=== PATIENT | female | born 1950 | race Caucasian/White ===

== ENCOUNTER 2017-08-11 18:25 | Inpatient (IN) | payer MEDICARE, MEDICAID ==
[2017-08-11] MEDS ORDERED: Sodium Chloride 0.9% 1,000 ML ONE (18:37)
[2017-08-11] MEDS ORDERED: Sodium Chloride 0.9% 1,000 ML IV ONE (20:19)
[2017-08-11] MEDS ORDERED: Albuterol-Ipratrop 3 mg / 0.5 (3 ml) UD INH STA (20:21)
--- NOTE | 2017-08-11 20:22 | C.PDOC ---
History Of Present Illness 67 year old female with Hx of COPD presents to the ED with complints of a fever accompanied by a headache since yesterday. She associates her fever with cough, SOB, chills, rhinorrhea. Patient is a smoker, currently smoking 3/4 cigarettes a day, used to smoke 1 pack a day and has been smoking for the past 50 years. 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 She denies any heart problems, ear pain, throat pain, recent travel outside the [place], vomit, nausea, or diarrhea. Chief Complaint (Nursing): Fever History Per: Patient History/Exam Limitations: no limitations Onset/Duration Of Symptoms: Hrs Current Symptoms Are (Timing): Still Present Location Of Pain: Headache Associated Symptoms: Fever, Chills, Cough, Sinus Drainage. denies: Neck Pain, Nausea, Vomiting, Diarrhea Recent travel outside of the [place]: No Additional History Per: Patient Past Medical History Reviewed: Historical Data, Nursing Documentation, Vital Signs Vital Signs: Last Vital Signs Temp 98.2 F 08/12/17 00:45 Pulse 96 H 08/12/17 00:45 Resp 20 08/12/17 00:45 BP 95/65 L 08/12/17 00:45 Pulse Ox 96 08/12/17 00:45 - Medical History PMH: COPD, CVA, HTN, Hyperthyroidism Denies: Depression (PRESENTLY DEPRESSED) Surgical History: Coronary Stent - [facility] Procedures ENDOSCOPIC BRONCHIAL BX (01/07/15) RESP TRACT INTUBAT NEC (01/07/15) Family History: States: Unknown Family Hx - Social History Hx Tobacco Use: Yes Hx Alcohol Use: No Hx Substance Use: No - Immunization History Hx Tetanus Toxoid Vaccination: No Hx Influenza Vaccination: No Hx Pneumococcal Vaccination: No Review Of Systems Constitutional: Positive for: Fever, Chills ENT: Positive for: Nose Discharge. Negative for: Ear Pain, Ear Discharge Cardiovascular: Negative for: Chest Pain Respiratory: Positive for: Cough, Shortness of Breath Gastrointestinal: Negative for: Nausea, Vomiting, Diarrhea Neurological: Negative for: Weakness, Numbness Physical Exam - Physical Exam Appears: Non-toxic, No Acute Distress Skin: Normal Color, Warm, Dry Head: Atraumatic, Normacephalic Eye(s): bilateral: Normal Inspection, PERRL, EOMI Oral Mucosa: Moist Neck: Normal, Supple Lymphatic: No Adenopathy (cervical) Chest: Symmetrical Cardiovascular: Rhythm Regular (Mildly accelerated), No Friction Rub, No Murmur Respiratory: Rhonchi (coarse left upper lung), Wheezing (expiratory bilateral, left more than right) Gastrointestinal/Abdominal: Bowel Sounds (active), Soft, No Tenderness, No Organomegaly, No Guarding Extremity: Normal ROM, No Pedal Edema, Capillary Refill (less than 2 seconds), No Deformity, No Swelling, No Other (clubbing, cyanosis) Pulses: Left Dorsalis Pedis: Normal, Right Dorsalis Pedis: Normal Neurological/Psych: Oriented x3, Normal Speech, Normal Cognition ED Course And Treatment - Laboratory Results Result Diagrams: 08/11/17 21:10 08/11/17 21:10 O2 Sat by Pulse Oximetry: 95 (On RA) - Radiology CXR: Interpreted by Me, Viewed By Me CXR Interpretation: Yes: No Acute Disease, Other (Cardiac silhouette normal) Medical Decision Making Medical Decision Making: Impression : 67 y/o female presents with fever, James. Plan : * ABG ordered * EKG ordered * Blood work, CXR, UA ordered * Albuterol, Nebulizer treatment, Zithromaz 500 mg administered * O2 Nasa canula placed * Peak flow Pre/Post Tx ordered Possible COPD vs pneumonia. Reevaluation after lab data is obtained. Patient still has persistent wheezes, spoke with PMD Dr. Duc Molian and agreed that patient needs to stay in the hospital tonight for further evaluation. Disposition - Disposition Disposition: HOSPITALIZED Condition: GOOD - Scribe Statement The provider has reviewed the documentation as recorded by the Scribe Deep Mccoy All medical record entries made by the Scribe were at my direction and personally dictated by me. I have reviewed the chart and agree that the record accurately reflects my personal performance of the history, physical exam, medical decision making, and the department course for this patient. I have also personally directed, reviewed, and agree with the discharge instructions and disposition.
[2017-08-11 21:24] LABS: CHLORIDE 91 mmol/L (98-107); POTASSIUM 3.1 mmol/L (3.6-5.2); SODIUM 128 mmol/L (132-148)
[2017-08-11 21:25] LABS: BASO % 0.3 % (0.0-2.0); EOS # 0.1 K/uL (0.0-0.7); EOS % 0.4 % (0.0-4.0); HEMATOCRIT 37.2 % (34.0-47.0); LYMPH # 1.2 K/uL (1.0-4.3); LYMPH % 7.4 % (20.0-40.0); MEAN CELL VOLUME 86.7 fL (81.0-99.0); MEAN CORPUSCULAR HEMOGLOBIN 29.9 pg (27.0-31.0); MEAN CORPUSCULAR HGB CONC 34.5 g/dL (33.0-37.0); MEAN PLATELET VOLUME 8.6 fL (7.2-11.7); MONO # 0.5 K/uL (0.0-0.8); MONO % 3.1 % (0.0-10.0); NRBC % 0.1 % (0.0-2.0); PLATELET COUNT 218 K/uL (130-400); RED CELL DISTRIBUTION WIDTH 15.4 % (11.5-14.5)
[2017-08-11 21:26] LABS: AST/SGOT 18 U/L (14-36); BILIRUBIN,TOTAL 1.1 mg/dL (0.2-1.3); CARBON DIOXIDE 25 mmol/L (22-30); GFR AFRICAN-AMERICAN > 60; WHITE BLOOD COUNT 16.3 K/uL (4.8-10.8)
[2017-08-11 21:27] LABS: ALB/GLOB RATIO 1.4 (1.0-2.1); ALKALINE PHOSPHATASE 82 U/L (38-126); ALT/SGPT 38 U/L (9-52); BLOOD UREA NITROGEN 11 mg/dL (7-17); GLUCOSE,RANDOM 161 mg/dL (65-105); TOTAL PROTEIN 6.6 g/dL (6.3-8.3)
[2017-08-11] MEDS ORDERED: Albuterol 0.083% Inhal Sol (2.5 mg/3 mL) UD ONE (21:35)
[2017-08-11] MEDS ORDERED: Azithromycin 500 MG in Sodium Chloride 0.9% 250 ML IVPB STA (22:05)
[2017-08-11 22:18] LABS: ARTERIAL BLOOD HGB O2 SAT 92.8 % (95.0-98.0); CARBOXYHEMOGLOBIN 1.9 % (0.5-1.5); DRAW SITE RRA; HHB 4.3 % (0.0-5.0)
[2017-08-11 22:35] LABS: REACTIVE LYMPHOCYTES 2 % (0-0); TOTAL CELLS COUNTED 100
[2017-08-11 22:38] LABS: NEUTROPHIL 69 % (50-75)
[2017-08-11] MEDS ORDERED: Azithromycin 500mg/250ML NS 500 MG/250 ML BAG IVPB ONE (22:44)
--- NOTE | 2017-08-11 23:42 | CP.PCM.HP ---
Past Patient History - Infectious Disease Hx of Infectious Diseases: None - Tetanus Immunizations Tetanus Immunization: Unknown - Past Medical History & Family History Past Medical History?: Yes - Past Social History Smoking Status: Former Smoker - CARDIAC Hx Hypertension: Yes - PULMONARY Hx Chronic Obstructive Pulmonary Disease (COPD): Yes - NEUROLOGICAL Hx Neurological Disorder: Yes HX Cerebrovascular Accident: Yes - HEENT Hx HEENT Problems: No - ENDOCRINE/METABOLIC Hx Hyperthyroidism: Yes - HEMATOLOGICAL/ONCOLOGICAL Hx Blood Disorders: No - INTEGUMENTARY Hx Dermatological Problems: No - MUSCULOSKELETAL/RHEUMATOLOGICAL Hx Musculoskeletal Disorders: No Hx Falls: No - GASTROINTESTINAL Hx Gastrointestinal Disorders: Yes Hx Constipation: Yes - GENITOURINARY/GYNECOLOGICAL Hx Genitourinary Disorders: No - PSYCHIATRIC Hx Depression: No (PRESENTLY DEPRESSED) Hx Substance Use: No - SURGICAL HISTORY Hx Coronary Stent: Yes - ANESTHESIA Hx Anesthesia: Yes Hx Anesthesia Reactions: No Hx Malignant Hyperthermia: No Meds Allergies/Adverse Reactions: Allergies Allergy/AdvReac Type Severity Reaction Status Date / Time iodine Allergy Verified 08/11/17 18:53 iron Allergy Verified 08/11/17 18:53 Penicillins Allergy Verified 08/11/17 18:53 Sulfa (Sulfonamide Allergy Verified 08/11/17 18:53 Antibiotics) seafood Allergy Uncoded 08/11/17 18:53 Results - Vital Signs Recent Vital Signs: Last Vital Signs Temp 99.4 F 08/11/17 21:45 Pulse 120 H 08/11/17 21:45 Resp 22 08/11/17 21:45 BP 107/68 08/11/17 21:45 Pulse Ox 95 08/11/17 22:41 - Labs Result Diagrams: 08/11/17 21:10 08/11/17 21:10 Labs: Laboratory Results - last 24 hr 08/11/17 08/11/17 08/11/17 20:12 21:10 21:10 WBC 16.3 H D RBC 4.29 Hgb 12.8 D Hct 37.2 MCV 86.7 MCH 29.9 MCHC 34.5 RDW 15.4 H Plt Count 218 MPV 8.6 Neut % (Auto) 88.8 H Lymph % (Auto) 7.4 L [place] % (Auto) 3.1 Eos % (Auto) 0.4 Baso % (Auto) 0.3 Neut # 14.5 H Lymph # 1.2 [place] # 0.5 Eos # 0.1 Baso # 0.0 Neutrophils % (Manual) 69 Band Neutrophils % 15 H* Lymphocytes % (Manual) 9 L Reactive Lymphs % 2 H Monocytes % (Manual) 5 Platelet Estimate Normal Microcytosis (manual) Slight Ovalocytes Slight Puncture Site Rra pCO2 36 pO2 65 L HCO3 29.1 H ABG pH 7.51 H ABG Total CO2 29.8 H ABG O2 Saturation 95.6 ABG Base Excess 5.5 H ABG Hemoglobin 11.8 ABG Carboxyhemoglobin 1.9 H POC ABG HHb (Measured) 4.3 ABG Methemoglobin 1.0 Tim Test Na A-a O2 Difference 40.0 Respiratory Index 0.6 Hgb O2 Saturation 92.8 L FiO2 21.0 Sodium 128 L Potassium 3.1 L Chloride 91 L Carbon Dioxide 25 Anion Gap 15 BUN 11 Creatinine 0.7 Est GFR ( Amer) > 60 Est GFR (Non-Af Amer) > 60 Random Glucose 161 H Lactic Acid Calcium 9.0 Total Bilirubin 1.1 AST 18 ALT 38 Alkaline Phosphatase 82 NT-Pro-B Natriuret Pep 160 Total Protein 6.6 Albumin 3.8 Globulin 2.8 Albumin/Globulin Ratio 1.4 08/11/17 22:04 WBC RBC Hgb Hct MCV MCH MCHC RDW Plt Count MPV Neut % (Auto) Lymph % (Auto) [place] % (Auto) Eos % (Auto) Baso % (Auto) Neut # Lymph # [place] # Eos # Baso # Neutrophils % (Manual) Band Neutrophils % Lymphocytes % (Manual) Reactive Lymphs % Monocytes % (Manual) Platelet Estimate Microcytosis (manual) Ovalocytes Puncture Site pCO2 pO2 HCO3 ABG pH ABG Total CO2 ABG O2 Saturation ABG Base Excess ABG Hemoglobin ABG Carboxyhemoglobin POC ABG HHb (Measured) ABG Methemoglobin Tim Test A-a O2 Difference Respiratory Index Hgb O2 Saturation FiO2 Sodium Potassium Chloride Carbon Dioxide Anion Gap BUN Creatinine Est GFR ( Amer) Est GFR (Non-Af Amer) Random Glucose Lactic Acid 1.6 Calcium Total Bilirubin AST ALT Alkaline Phosphatase NT-Pro-B Natriuret Pep Total Protein Albumin Globulin Albumin/Globulin Ratio
[2017-08-11] MEDS: Moxifloxacin IV 400mg/250ml NS 400 MG/250 ML BAG IVPB SCH (23:51)
[2017-08-12] MEDS: Moxifloxacin IV 400mg/250ml NS 400 MG/250 ML BAG IVPB SCH (01:17)
[2017-08-12] MEDS ORDERED: Potassium Chloride 20 mEq ER Tab PO ONE (01:22)
[2017-08-12] MEDS: Albuterol-Ipratrop 3 mg / 0.5 (3 ml) UD INH SCH ×3 (01:24→19:17)
[2017-08-12 08:07] LABS: RBC URINE 13 /hpf (0-3); URINE BACTERIA RARE (<OCC); URINE BILIRUBIN NEGATIVE (NEGATIVE); URINE BLOOD 2+ (NEGATIVE); URINE COLOR Yellow (YELLOW); URINE GLUCOSE (UA) 2+ mg/dL (Normal); URINE KETONE NEGATIVE (NEGATIVE); URINE LEUKOCYTE ESTERASE NEG Leu/uL (Negative); URINE PROTEIN NEGATIVE (NEGATIVE); WBC URINE 1 /hpf (0-5)
[2017-08-12] MEDS: Potassium Chloride 20 mEq ER Tab PO SCH ×2 (08:48→10:38)
--- NOTE | 2017-08-12 09:03 | CP.PCM.CON ---
History of Present Illness - History of Present Illness History of Present Illness: 67 year old female with Hx of COPD presents to the ED with complaints of a fever , SOB, Wheezing accompanied by a headache since yesterday. She associates her fever with cough, SOB, chills, rhinorrhea. Patient is a smoker, currently smoking 3/4 cigarettes a day, used to smoke 1 pack a day and has been smoking for the past 50 years. 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 She denies any heart problems, ear pain, throat pain, recent travel outside the [place], vomit, nausea, or diarrhea. Review of Systems - Review of Systems All systems: reviewed and no additional remarkable complaints except (as mentioned in HPI) Past Patient History - Infectious Disease Hx of Infectious Diseases: None - Tetanus Immunizations Tetanus Immunization: Unknown - Past Medical History & Family History Past Medical History?: Yes - Past Social History Smoking Status: Light Smoker < 10 Cigarettes Daily - CARDIAC Hx Cardiac Disorders: Yes Hx Hypertension: Yes - PULMONARY Hx Respiratory Disorders: Yes Hx Chronic Obstructive Pulmonary Disease (COPD): Yes - NEUROLOGICAL Hx Neurological Disorder: Yes HX Cerebrovascular Accident: Yes - HEENT Hx HEENT Problems: No - RENAL Hx Chronic Kidney Disease: No - ENDOCRINE/METABOLIC Hx Endocrine Disorders: Yes Hx Hyperthyroidism: Yes - HEMATOLOGICAL/ONCOLOGICAL Hx Blood Disorders: Yes Hx Cancer: Yes Hx Chemotherapy: Yes Other/Comment: pt states she currently diagnosed w/brain ca - INTEGUMENTARY Hx Dermatological Problems: No - MUSCULOSKELETAL/RHEUMATOLOGICAL Hx Musculoskeletal Disorders: No Hx Falls: No - GASTROINTESTINAL Hx Gastrointestinal Disorders: Yes Hx Constipation: Yes - GENITOURINARY/GYNECOLOGICAL Hx Genitourinary Disorders: No - PSYCHIATRIC Hx Depression: No (PRESENTLY DEPRESSED) Hx Substance Use: No - SURGICAL HISTORY Hx Surgeries: Yes Hx Coronary Stent: Yes - ANESTHESIA Hx Anesthesia: Yes Hx Anesthesia Reactions: No Hx Malignant Hyperthermia: No Meds Allergies/Adverse Reactions: Allergies Allergy/AdvReac Type Severity Reaction Status Date / Time iodine Allergy Verified 08/11/17 18:53 iron Allergy Verified 08/11/17 18:53 Penicillins Allergy Verified 08/11/17 18:53 Sulfa (Sulfonamide Allergy Verified 08/11/17 18:53 Antibiotics) seafood Allergy Uncoded 08/11/17 18:53 - Medications Medications: Current Medications Albuterol/Ipratropium (Duoneb 3 Mg/0.5 Mg (3 Ml) Ud) 3 ml INH RQ6 [facility] Last Admin: 08/12/17 07:10 Dose: 3 ml Enoxaparin Sodium (Lovenox) 40 mg SC DAILY [facility] Moxifloxacin HCl (Avelox Iv 400mg/250ml Ns) 400 mg in 250 mls @ 167 mls/hr IVPB Q24H [facility] Last Admin: 08/12/17 01:17 Dose: Not Given Azithromycin 500 mg/ Sodium (Chloride) 250 mls @ 250 mls/hr IVPB DAILY [facility] Potassium Chloride (Potassium Chloride 20 Meq/100 Ml) 20 meq in 100 mls @ 50 mls/hr IVPB Q2 [facility] Last Admin: 08/12/17 00:06 Dose: 50 mls/hr Montelukast Sodium (Singulair) 10 mg PO HS [facility] Last Admin: 08/12/17 01:19 Dose: 10 mg Pantoprazole Sodium (Protonix Ec Tab) 40 mg PO DAILY [facility] Pneumococcal Polyvalent Vaccine (Pneumovax 23 Vaccine) 0.5 ml IM .ONCE ONE Stop: 08/14/17 10:01 Potassium Chloride (K-Dur 20 Meq Er Tab) 20 meq PO DAILY [facility] Last Admin: 08/12/17 08:48 Dose: 20 meq Physical Exam - Head Exam Head Exam: NORMAL INSPECTION - Eye Exam Eye Exam: Normal appearance - ENT Exam ENT Exam: Mucous Membranes Moist - Respiratory Exam Respiratory Exam: Decreased Breath Sounds, Rhonchi - Cardiovascular Exam Cardiovascular Exam: REGULAR RHYTHM, +S1, +S2 - GI/Abdominal Exam GI & Abdominal Exam: Normal Bowel Sounds, Soft - Extremities Exam Extremities exam: Positive for: normal inspection - Neurological Exam Neurological exam: Alert, Oriented x3 Results - Vital Signs Recent Vital Signs: Last Vital Signs Temp 98.5 F 08/12/17 08:37 Pulse 111 H 08/12/17 08:37 Resp 20 08/12/17 08:37 BP 98/67 L 08/12/17 08:37 Pulse Ox 99 08/12/17 08:37 - Labs Result Diagrams: 08/11/17 21:10 08/11/17 21:10 Labs: Laboratory Results - last 24 hr 08/11/17 08/11/17 08/11/17 20:12 21:10 21:10 WBC 16.3 H D RBC 4.29 Hgb 12.8 D Hct 37.2 MCV 86.7 MCH 29.9 MCHC 34.5 RDW 15.4 H Plt Count 218 MPV 8.6 Neut % (Auto) 88.8 H Lymph % (Auto) 7.4 L [place] % (Auto) 3.1 Eos % (Auto) 0.4 Baso % (Auto) 0.3 Neut # 14.5 H Lymph # 1.2 [place] # 0.5 Eos # 0.1 Baso # 0.0 Neutrophils % (Manual) 69 Band Neutrophils % 15 H* Lymphocytes % (Manual) 9 L Reactive Lymphs % 2 H Monocytes % (Manual) 5 Platelet Estimate Normal Microcytosis (manual) Slight Ovalocytes Slight Puncture Site Rra pCO2 36 pO2 65 L HCO3 29.1 H ABG pH 7.51 H ABG Total CO2 29.8 H ABG O2 Saturation 95.6 ABG Base Excess 5.5 H ABG Hemoglobin 11.8 ABG Carboxyhemoglobin 1.9 H POC ABG HHb (Measured) 4.3 ABG Methemoglobin 1.0 Tim Test Na A-a O2 Difference 40.0 Respiratory Index 0.6 Hgb O2 Saturation 92.8 L FiO2 21.0 Sodium 128 L Potassium 3.1 L Chloride 91 L Carbon Dioxide 25 Anion Gap 15 BUN 11 Creatinine 0.7 Est GFR ( Amer) > 60 Est GFR (Non-Af Amer) > 60 Random Glucose 161 H Lactic Acid Calcium 9.0 Total Bilirubin 1.1 AST 18 ALT 38 Alkaline Phosphatase 82 NT-Pro-B Natriuret Pep 160 Total Protein 6.6 Albumin 3.8 Globulin 2.8 Albumin/Globulin Ratio 1.4 Urine Color Urine Clarity Urine pH Ur Specific [employer] Urine Protein Urine Glucose (UA) Urine Ketones Urine Blood Urine Nitrate Urine Bilirubin Urine Urobilinogen Ur Leukocyte Esterase Urine WBC (Auto) Urine RBC (Auto) Ur Squamous Epith Cells Urine Bacteria 08/11/17 08/12/17 22:04 07:39 WBC RBC Hgb Hct MCV MCH MCHC RDW Plt Count MPV Neut % (Auto) Lymph % (Auto) [place] % (Auto) Eos % (Auto) Baso % (Auto) Neut # Lymph # [place] # Eos # Baso # Neutrophils % (Manual) Band Neutrophils % Lymphocytes % (Manual) Reactive Lymphs % Monocytes % (Manual) Platelet Estimate Microcytosis (manual) Ovalocytes Puncture Site pCO2 pO2 HCO3 ABG pH ABG Total CO2 ABG O2 Saturation ABG Base Excess ABG Hemoglobin ABG Carboxyhemoglobin POC ABG HHb (Measured) ABG Methemoglobin Tim Test A-a O2 Difference Respiratory Index Hgb O2 Saturation FiO2 Sodium Potassium Chloride Carbon Dioxide Anion Gap BUN Creatinine Est GFR ( Amer) Est GFR (Non-Af Amer) Random Glucose Lactic Acid 1.6 Calcium Total Bilirubin AST ALT Alkaline Phosphatase NT-Pro-B Natriuret Pep Total Protein Albumin Globulin Albumin/Globulin Ratio Urine Color Yellow Urine Clarity Clear Urine pH 6.0 Ur Specific [employer] 1.013 Urine Protein Negative Urine Glucose (UA) 2+ H Urine Ketones Negative Urine Blood 2+ H Urine Nitrate Negative Urine Bilirubin Negative Urine Urobilinogen 4.0 H Ur Leukocyte Esterase Neg Urine WBC (Auto) 1 Urine RBC (Auto) 13 H Ur Squamous Epith Cells 8 H Urine Bacteria Rare Assessment & Plan - Assessment and Plan (Free Text) Assessment: COPD HTN Improved Wheezing Azithromycin Add Advair 250/50 1 P BID Bronchodilators DVT/GI prophalaxis
[2017-08-12] MEDS: Pantoprazole 40 mg EC Tab PO SCH (10:34)
[2017-08-12] MEDS: Enoxaparin 40 mg Syringe SC SCH (10:34)
[2017-08-12] MEDS: Azithromycin 500 MG in Sodium Chloride 0.9% 250 ML IVPB SCH (10:35)
[2017-08-12 11:26] LABS: BASO # 0.1 K/uL (0.0-0.2); BASO % 0.5 % (0.0-2.0); EOS # 0.1 K/uL (0.0-0.7); EOS % 0.4 % (0.0-4.0); HEMATOCRIT 31.2 % (34.0-47.0); LYMPH # 1.5 K/uL (1.0-4.3); LYMPH % 11.6 % (20.0-40.0); MEAN CELL VOLUME 86.7 fL (81.0-99.0); MEAN CORPUSCULAR HEMOGLOBIN 29.9 pg (27.0-31.0); MEAN CORPUSCULAR HGB CONC 34.5 g/dL (33.0-37.0); MEAN PLATELET VOLUME 8.1 fL (7.2-11.7); MONO # 0.5 K/uL (0.0-0.8); MONO % 3.6 % (0.0-10.0); RED CELL DISTRIBUTION WIDTH 15.1 % (11.5-14.5); WHITE BLOOD COUNT 13.1 K/uL (4.8-10.8)
[2017-08-12 11:27] LABS: CHLORIDE 99 mmol/L (98-107); SODIUM 134 mmol/L (132-148)
[2017-08-12 11:28] LABS: POTASSIUM 3.5 mmol/L (3.6-5.2)
[2017-08-12 11:30] LABS: CARBON DIOXIDE 29 mmol/L (22-30); GFR AFRICAN-AMERICAN > 60
[2017-08-12 11:31] LABS: BLOOD UREA NITROGEN 9 mg/dL (7-17); GLUCOSE,RANDOM 170 mg/dL (65-105)
[2017-08-12] MEDS: Vancomycin 1 gm/NS 200 ml 1 GM/200 ML BAG IVPB SCH (11:45)
--- NOTE | 2017-08-12 13:57 | CP.PCM.CON ---
History of Present Illness - History of Present Illness History of Present Illness: dictated Past Patient History - Infectious Disease Hx of Infectious Diseases: None - Tetanus Immunizations Tetanus Immunization: Unknown - Past Medical History & Family History Past Medical History?: Yes - Past Social History Smoking Status: Light Smoker < 10 Cigarettes Daily - CARDIAC Hx Cardiac Disorders: Yes Hx Hypertension: Yes - PULMONARY Hx Respiratory Disorders: Yes Hx Chronic Obstructive Pulmonary Disease (COPD): Yes - NEUROLOGICAL Hx Neurological Disorder: Yes HX Cerebrovascular Accident: Yes - HEENT Hx HEENT Problems: No - RENAL Hx Chronic Kidney Disease: No - ENDOCRINE/METABOLIC Hx Endocrine Disorders: Yes Hx Hyperthyroidism: Yes - HEMATOLOGICAL/ONCOLOGICAL Hx Blood Disorders: Yes Hx Cancer: Yes Hx Chemotherapy: Yes Other/Comment: pt states she currently diagnosed w/brain ca - INTEGUMENTARY Hx Dermatological Problems: No - MUSCULOSKELETAL/RHEUMATOLOGICAL Hx Musculoskeletal Disorders: No Hx Falls: No - GASTROINTESTINAL Hx Gastrointestinal Disorders: Yes Hx Constipation: Yes - GENITOURINARY/GYNECOLOGICAL Hx Genitourinary Disorders: No - PSYCHIATRIC Hx Depression: No (PRESENTLY DEPRESSED) Hx Substance Use: No - SURGICAL HISTORY Hx Surgeries: Yes Hx Coronary Stent: Yes - ANESTHESIA Hx Anesthesia: Yes Hx Anesthesia Reactions: No Hx Malignant Hyperthermia: No Meds Home Medications: Home Medication List Medication Instructions Recorded Confirmed Type Acetaminophen [Tylenol 325mg tab] 650 mg PO Q8 PRN tab 08/14/17 Rx Albuterol/Ipratropium [Duoneb 3 3 ml INH RQ6 neb 08/14/17 Rx mg/0.5 mg (3 ml) UD] Enoxaparin [Lovenox] 40 mg SC DAILY syr 08/14/17 Rx Fluticasone/Salmeterol 250/50 1 puff INH RQ12 puff 08/14/17 Rx [Advair Diskus 250/50] Montelukast [Singulair] 10 mg PO HS tab 08/14/17 Rx Potassium Chloride [K-Dur 20 mEq 20 meq PO DAILY tab 08/14/17 Rx ER Tab] Saccharomyces Boulardi [Florastor] 250 mg PO BID #16 cap 08/14/17 Rx levoFLOXacin [Levaquin] 500 mg PO DAILY #7 tab 08/14/17 Rx Allergies/Adverse Reactions: Allergies Allergy/AdvReac Type Severity Reaction Status Date / Time iodine Allergy Verified 08/11/17 18:53 iron Allergy Verified 08/11/17 18:53 Penicillins Allergy Verified 08/11/17 18:53 Sulfa (Sulfonamide Allergy Verified 08/11/17 18:53 Antibiotics) seafood Allergy Uncoded 08/11/17 18:53 - Medications Medications: Current Medications Albuterol/Ipratropium (Duoneb 3 Mg/0.5 Mg (3 Ml) Ud) 3 ml INH RQ6 [facility] Last Admin: 08/12/17 07:10 Dose: 3 ml Enoxaparin Sodium (Lovenox) 40 mg SC DAILY [facility] Last Admin: 08/12/17 10:34 Dose: 40 mg Azithromycin 500 mg/ Sodium (Chloride) 250 mls @ 250 mls/hr IVPB DAILY [facility] Last Admin: 08/12/17 10:35 Dose: 250 mls/hr Potassium Chloride (Potassium Chloride 20 Meq/100 Ml) 20 meq in 100 mls @ 50 mls/hr IVPB Q2 [facility] Last Admin: 08/12/17 00:06 Dose: 50 mls/hr Vancomycin/Sodium Chloride (Vancomycin 1 Gm/Ns 200 Ml) 1 gm in 200 mls @ 133.333 mls/hr IVPB Q12H [facility] Stop: 08/17/17 12:01 Last Admin: 08/12/17 11:45 Dose: 133.333 mls/hr Aztreonam 1 gm/ Sodium (Chloride) 100 mls @ 100 mls/hr IVPB Q8H [facility] Montelukast Sodium (Singulair) 10 mg PO HS [facility] Last Admin: 08/12/17 01:19 Dose: 10 mg Pantoprazole Sodium (Protonix Ec Tab) 40 mg PO DAILY [facility] Last Admin: 08/12/17 10:34 Dose: 40 mg Pneumococcal Polyvalent Vaccine (Pneumovax 23 Vaccine) 0.5 ml IM .ONCE ONE Stop: 08/14/17 10:01 Potassium Chloride (K-Dur 20 Meq Er Tab) 20 meq PO DAILY [facility] Last Admin: 08/12/17 10:38 Dose: 20 meq Fluticasone/Salmeterol (Advair Diskus 250/50) 1 puff INH RQ12 [facility] Results - Vital Signs Recent Vital Signs: Last Vital Signs Temp 98.5 F 08/12/17 08:37 Pulse 111 H 08/12/17 08:37 Resp 20 08/12/17 08:37 BP 98/67 L 08/12/17 08:37 Pulse Ox 99 08/12/17 08:37 - Labs Result Diagrams: 08/14/17 08:20 08/14/17 08:20 Labs: Laboratory Results - last 24 hr 08/11/17 08/11/17 08/11/17 20:12 21:10 21:10 WBC 16.3 H D RBC 4.29 Hgb 12.8 D Hct 37.2 MCV 86.7 MCH 29.9 MCHC 34.5 RDW 15.4 H Plt Count 218 MPV 8.6 Neut % (Auto) 88.8 H Lymph % (Auto) 7.4 L [place] % (Auto) 3.1 Eos % (Auto) 0.4 Baso % (Auto) 0.3 Neut # 14.5 H Lymph # 1.2 [place] # 0.5 Eos # 0.1 Baso # 0.0 Neutrophils % (Manual) 69 Band Neutrophils % 15 H* Lymphocytes % (Manual) 9 L Reactive Lymphs % 2 H Monocytes % (Manual) 5 Platelet Estimate Normal Microcytosis (manual) Slight Ovalocytes Slight Puncture Site Rra pCO2 36 pO2 65 L HCO3 29.1 H ABG pH 7.51 H ABG Total CO2 29.8 H ABG O2 Saturation 95.6 ABG Base Excess 5.5 H ABG Hemoglobin 11.8 ABG Carboxyhemoglobin 1.9 H POC ABG HHb (Measured) 4.3 ABG Methemoglobin 1.0 Tim Test Na A-a O2 Difference 40.0 Respiratory Index 0.6 Hgb O2 Saturation 92.8 L FiO2 21.0 Sodium 128 L Potassium 3.1 L Chloride 91 L Carbon Dioxide 25 Anion Gap 15 BUN 11 Creatinine 0.7 Est GFR ( Amer) > 60 Est GFR (Non-Af Amer) > 60 Random Glucose 161 H Lactic Acid Calcium 9.0 Total Bilirubin 1.1 AST 18 ALT 38 Alkaline Phosphatase 82 NT-Pro-B Natriuret Pep 160 Total Protein 6.6 Albumin 3.8 Globulin 2.8 Albumin/Globulin Ratio 1.4 Urine Color Urine Clarity Urine pH Ur Specific [place] Urine Protein Urine Glucose (UA) Urine Ketones Urine Blood Urine Nitrate Urine Bilirubin Urine Urobilinogen Ur Leukocyte Esterase Urine WBC (Auto) Urine RBC (Auto) Ur Squamous Epith Cells Urine Bacteria 08/11/17 08/12/17 08/12/17 22:04 07:39 11:08 WBC 13.1 H RBC 3.60 L Hgb 10.8 L D Hct 31.2 L MCV 86.7 MCH 29.9 MCHC 34.5 RDW 15.1 H Plt Count 209 MPV 8.1 Neut % (Auto) 83.9 H Lymph % (Auto) 11.6 L [place] % (Auto) 3.6 Eos % (Auto) 0.4 Baso % (Auto) 0.5 Neut # 11.0 H Lymph # 1.5 [place] # 0.5 Eos # 0.1 Baso # 0.1 Neutrophils % (Manual) Band Neutrophils % Lymphocytes % (Manual) Reactive Lymphs % Monocytes % (Manual) Platelet Estimate Microcytosis (manual) Ovalocytes Puncture Site pCO2 pO2 HCO3 ABG pH ABG Total CO2 ABG O2 Saturation ABG Base Excess ABG Hemoglobin ABG Carboxyhemoglobin POC ABG HHb (Measured) ABG Methemoglobin Tim Test A-a O2 Difference Respiratory Index Hgb O2 Saturation FiO2 Sodium Potassium Chloride Carbon Dioxide Anion Gap BUN Creatinine Est GFR ( Amer) Est GFR (Non-Af Amer) Random Glucose Lactic Acid 1.6 Calcium Total Bilirubin AST ALT Alkaline Phosphatase NT-Pro-B Natriuret Pep Total Protein Albumin Globulin Albumin/Globulin Ratio Urine Color Yellow Urine Clarity Clear Urine pH 6.0 Ur Specific [place] 1.013 Urine Protein Negative Urine Glucose (UA) 2+ H Urine Ketones Negative Urine Blood 2+ H Urine Nitrate Negative Urine Bilirubin Negative Urine Urobilinogen 4.0 H Ur Leukocyte Esterase Neg Urine WBC (Auto) 1 Urine RBC (Auto) 13 H Ur Squamous Epith Cells 8 H Urine Bacteria Rare 08/12/17 11:08 WBC RBC Hgb Hct MCV MCH MCHC RDW Plt Count MPV Neut % (Auto) Lymph % (Auto) [place] % (Auto) Eos % (Auto) Baso % (Auto) Neut # Lymph # [place] # Eos # Baso # Neutrophils % (Manual) Band Neutrophils % Lymphocytes % (Manual) Reactive Lymphs % Monocytes % (Manual) Platelet Estimate Microcytosis (manual) Ovalocytes Puncture Site pCO2 pO2 HCO3 ABG pH ABG Total CO2 ABG O2 Saturation ABG Base Excess ABG Hemoglobin ABG Carboxyhemoglobin POC ABG HHb (Measured) ABG Methemoglobin Tim Test A-a O2 Difference Respiratory Index Hgb O2 Saturation FiO2 Sodium 134 Potassium 3.5 L Chloride 99 Carbon Dioxide 29 Anion Gap 10 BUN 9 Creatinine 0.6 L Est GFR ( Amer) > 60 Est GFR (Non-Af Amer) > 60 Random Glucose 170 H Lactic Acid Calcium 9.0 Total Bilirubin AST ALT Alkaline Phosphatase NT-Pro-B Natriuret Pep Total Protein Albumin Globulin Albumin/Globulin Ratio Urine Color Urine Clarity Urine pH Ur Specific [place] Urine Protein Urine Glucose (UA) Urine Ketones Urine Blood Urine Nitrate Urine Bilirubin Urine Urobilinogen Ur Leukocyte Esterase Urine WBC (Auto) Urine RBC (Auto) Ur Squamous Epith Cells Urine Bacteria
--- NOTE | 2017-08-12 14:55 | CP.PCM.PN ---
Subjective - Date & Time of Evaluation Date of Evaluation: 08/12/17 Time of Evaluation: 08:20 - Subjective Subjective: clinically same Objective - Vital Signs/Intake and Output Vital Signs (last 24 hours): Temp Pulse Resp BP Pulse Ox 98.5 F 111 H 20 98/67 L 99 08/12/17 08:37 08/12/17 08:37 08/12/17 08:37 08/12/17 08:37 08/12/17 08:37 Intake and Output: 08/12/17 08/12/17 06:59 18:59 Intake Total 120 Balance 120 - Medications Medications: Current Medications Albuterol/Ipratropium (Duoneb 3 Mg/0.5 Mg (3 Ml) Ud) 3 ml INH RQ6 [facility] Last Admin: 08/12/17 07:10 Dose: 3 ml Enoxaparin Sodium (Lovenox) 40 mg SC DAILY [facility] Last Admin: 08/12/17 10:34 Dose: 40 mg Azithromycin 500 mg/ Sodium (Chloride) 250 mls @ 250 mls/hr IVPB DAILY [facility] Last Admin: 08/12/17 10:35 Dose: 250 mls/hr Potassium Chloride (Potassium Chloride 20 Meq/100 Ml) 20 meq in 100 mls @ 50 mls/hr IVPB Q2 [facility] Last Admin: 08/12/17 00:06 Dose: 50 mls/hr Vancomycin/Sodium Chloride (Vancomycin 1 Gm/Ns 200 Ml) 1 gm in 200 mls @ 133.333 mls/hr IVPB Q12H [facility] Stop: 08/17/17 12:01 Last Admin: 08/12/17 11:45 Dose: 133.333 mls/hr Aztreonam 1 gm/ Sodium (Chloride) 100 mls @ 100 mls/hr IVPB Q8H [facility] Montelukast Sodium (Singulair) 10 mg PO HS [facility] Last Admin: 08/12/17 01:19 Dose: 10 mg Pantoprazole Sodium (Protonix Ec Tab) 40 mg PO DAILY [facility] Last Admin: 08/12/17 10:34 Dose: 40 mg Pneumococcal Polyvalent Vaccine (Pneumovax 23 Vaccine) 0.5 ml IM .ONCE ONE Stop: 08/14/17 10:01 Potassium Chloride (K-Dur 20 Meq Er Tab) 20 meq PO DAILY [facility] Last Admin: 08/12/17 10:38 Dose: 20 meq Fluticasone/Salmeterol (Advair Diskus 250/50) 1 puff INH RQ12 [facility] - Labs Labs: 08/12/17 11:08 08/12/17 11:08 Assessment and Plan - Assessment and Plan (Free Text) Plan: Continue same IV antibiotic DuoNeb pulmonary consult other consultation as ordered patient expressed to go to the [facility] next week continue as ordered no new complaints family bed side
--- NOTE | 2017-08-12 15:40 | RAD ---
PROCEDURE: CHEST RADIOGRAPH, 1 VIEW HISTORY: Pneumonia COMPARISON: Comparison chest dated 01/13/[address] scan chest 03/26/2015 FINDINGS: LUNGS: Mild bibasilar atelectasis. Re- demonstrated is a calcified granuloma superior aspect left lower lobe best seen on prior CT scan chest PLEURA: No pneumothorax or pleural fluid seen. CARDIOVASCULAR: Normal. OSSEOUS STRUCTURES: No significant abnormalities. VISUALIZED UPPER ABDOMEN: Normal. OTHER FINDINGS: None. IMPRESSION: Mild bibasilar atelectasis. Stable appearing small calcified granuloma left lower lobe as detailed above. Mild bibasilar atelectasis.
[2017-08-12] MEDS: Aztreonam 1 GM in Sodium Chloride 0.9% 100 ML IVPB SCH ×2 (16:19→21:24)
[2017-08-12] MEDS: Fluticasone-Salmeterol 250-50mcg Diskus INH SCH (19:16)
[2017-08-12 19:58] LABS: BASO % 0.2 % (0.0-2.0); EOS # 0.1 K/uL (0.0-0.7); EOS % 1.1 % (0.0-4.0); LYMPH # 2.2 K/uL (1.0-4.3); LYMPH % 22.9 % (20.0-40.0); MEAN CELL VOLUME 87.3 fL (81.0-99.0); MEAN CORPUSCULAR HEMOGLOBIN 29.6 pg (27.0-31.0); MEAN CORPUSCULAR HGB CONC 33.9 g/dL (33.0-37.0); MEAN PLATELET VOLUME 7.5 fL (7.2-11.7); MONO # 0.4 K/uL (0.0-0.8); MONO % 4.2 % (0.0-10.0); RED CELL DISTRIBUTION WIDTH 15.4 % (11.5-14.5); WHITE BLOOD COUNT 9.6 K/uL (4.8-10.8)
[2017-08-12 20:25] LABS: CHLORIDE 100 mmol/L (98-107); POTASSIUM 3.7 mmol/L (3.6-5.2); SODIUM 132 mmol/L (132-148)
[2017-08-12 20:27] LABS: ALB/GLOB RATIO 0.9 (1.0-2.1); ALKALINE PHOSPHATASE 57 U/L (38-126); AST/SGOT 14 U/L (14-36); BILIRUBIN,TOTAL 0.6 mg/dL (0.2-1.3); CARBON DIOXIDE 24 mmol/L (22-30); GFR AFRICAN-AMERICAN > 60; TOTAL PROTEIN 5.9 g/dL (6.3-8.3)
[2017-08-12 20:28] LABS: ALT/SGPT 32 U/L (9-52); BLOOD UREA NITROGEN 9 mg/dL (7-17); GLUCOSE,RANDOM 194 mg/dL (65-105)
[2017-08-13] MEDS: Vancomycin 1 gm/NS 200 ml 1 GM/200 ML BAG IVPB SCH ×3 (00:05→23:40)
--- NOTE | 2017-08-13 01:35 | CON ---
DATE: INFECTIOUS DISEASE CONSULT REQUESTED BY: Dr. Azam Molina. HISTORY OF PRESENT ILLNESS: The patient is a 67-year-old female with history of COPD and also lung CA. She comes in with fever, shortness of breath, and wheezing. She also said she had temperature of 101 and she also had chills lasting for 2 days and she is admitted with cough, shortness of breath, fever, and chills. She is a smoker. She stopped smoking 4 days ago and she still smokes 3-4 cigarettes a day. She also has had multiple strokes in the past. She complains of more weakness on the left leg at this time, she said she could not even get up; otherwise, she is able to ambulate with support, but she felt that her left leg was weaker. She is having CAT scan now, and she follows with Dr. Byrne. Her tumor was found diagnosed in 2014, she states and strokes, she said she had in 2012. She was treated with chemo and radiation and she says now to me that she recently found out that there is lesion in her brain and they may do radiation to it, but I am not sure about it. She denies any nausea, vomiting, or diarrhea. She is incontinent of urine she says since she got stroke and she denies any incontinence of feces; otherwise, she did come in with fever. She also has ALLERGIES TO PENICILLIN, which causes her to have itching and rash and denies any throat closure with that. She is awake, alert, able to give history. Past medical history: copd,lung cancer PAST SURGICAL HISTORY: She has had only tonsillectomy that she tells me at age 17. SOCIAL HISTORY: Significant for smoking and she is [place] and she says she drinks [place] coffee. Denies any alcohol or drug abuse. MEDICATIONS: She does take some medications at home and her home medications and only mentioned is pantoprazole and she takes some Ventolin inhaler at times, she says. On examination of her medications, I find she is on DuoNeb. She will get Zithromax. There is shortage of Avelox, so she did not get Avelox. I just started on Azactam 1 g q.8 hours and she is on Lovenox, montelukast, and Protonix. She is going to get Pneumovax and potassium,she is getting and she is on Advair and we gave her vancomycin. So, we are covering her with vancomycin, Azactam, and Zithromax at this time. As there is no Avelox, they only have Cipro, but she received Zithromax right now, so we will follow and will also screen for atypical to deescalate the antibiotics. REVIEW OF SYSTEMS: She did complain of dizziness and headache, which was there. Denies any nose or throat problems right now. Does have sputum production, she says it is getting more with the antibiotics she is getting. She is still warm. She denies any shortness of breath right now as she is on treatment. Denies any nausea, vomiting, or diarrhea. She is incontinent. She does have gait imbalance because of old strokes, and she feels she has new weakness in right leg. PHYSICAL EXAMINATION: VITAL SIGNS: I find the temperature is 98.5, heart rate is 111, blood pressure is 98/67, respirations are 20. HEENT: Head is atraumatic and normocephalic. Pupils are reacting to light. No icterus present. Tongue is moist. No thrush noted. GENERAL: She is alert and oriented. She speaks [place]. NECK: Supple. JVP is flat. LUNGS: Clear. No crackles or rales present. Decreased breath sounds bilaterally. No rhonchi, no wheezing at this time; she is on treatment. HEART: S1 and S2 are regular. No murmurs appreciated. ABDOMEN: Soft and nontender. No guarding. No rigidity present. EXTREMITIES: No edema, clubbing, or cyanosis. Of note is that the left leg has decreased muscle strength present and right leg is unremarkable. LABORATORY DATA: Labs are noted. Labs showed white count is 16.3, hemoglobin 12.8, hematocrit 37.2, platelet count is 218. ABG was done which was 7.51, CO2 of 29.8, and O2 is 65.1, and Dr. Galvin is following that. Potassium was low, she is getting potassium supplement. Her LFTs are unremarkable. Creatinine 0.7. I have started her on vancomycin, we will give her vancomycin 1 g q.12 and leave her on Azactam and Zithromax at this time. We will get some tests done and do a chest x-ray. Chest x-ray was done, but the report is pending at this time, so at this time I am not sure that her fever is related to pneumonia, actually I do not see it to me it just appears increased markings at this time, but we will wait for the official report and we will continue with these antibiotics at this time and we will follow. Urine showed some glucose 2+ blood, and rbc's 13, so there is more blood rather than wbc's, so she may have some hematuria. When she came in, her sodium was 128, now it is 134, so it is improving. She did come in with hyponatremia and her sugars are high. White count was 16.3 with 15% bands, right now it is 13.1 and hemoglobin 10.8, hematocrit 31.2, platelet count is 209. We will also get tests done and we will follow with Dr. Molina and Dr. Galvin, and I want to make sure they did blood cultures and urine cultures, which I was told by the nurse that they were done. I do see that the blood was collected and urine is uncollected, they may have to straight cath her. IMPRESSION: Fever in a patient with lung cancer with brain metastases, rule out obstructive pneumonia, rule out other etiology, and we will also get a flu swab. We will follow. Malcom Decker MD ARSLAN
[2017-08-13] MEDS: Albuterol-Ipratrop 3 mg / 0.5 (3 ml) UD INH SCH ×4 (02:01→20:40)
[2017-08-13] MEDS: Aztreonam 1 GM in Sodium Chloride 0.9% 100 ML IVPB SCH ×3 (05:31→22:05)
[2017-08-13] MEDS: Fluticasone-Salmeterol 250-50mcg Diskus INH SCH ×2 (07:32→20:40)
[2017-08-13 09:17] LABS: BASO # 0.1 K/uL (0.0-0.2); BASO % 0.5 % (0.0-2.0); EOS # 0.1 K/uL (0.0-0.7); EOS % 0.9 % (0.0-4.0); HEMATOCRIT 33.1 % (34.0-47.0); LYMPH # 1.7 K/uL (1.0-4.3); LYMPH % 13.9 % (20.0-40.0); MEAN CELL VOLUME 87.4 fL (81.0-99.0); MEAN CORPUSCULAR HGB CONC 34.4 g/dL (33.0-37.0); MEAN PLATELET VOLUME 8.2 fL (7.2-11.7); MONO # 0.5 K/uL (0.0-0.8); MONO % 3.7 % (0.0-10.0); RED CELL DISTRIBUTION WIDTH 15.6 % (11.5-14.5); WHITE BLOOD COUNT 12.4 K/uL (4.8-10.8)
[2017-08-13 09:32] LABS: CHLORIDE 96 mmol/L (98-107); SODIUM 130 mmol/L (132-148)
[2017-08-13 09:33] LABS: POTASSIUM 4.1 mmol/L (3.6-5.2)
[2017-08-13 09:35] LABS: CARBON DIOXIDE 26 mmol/L (22-30); GFR AFRICAN-AMERICAN > 60
[2017-08-13 09:36] LABS: BLOOD UREA NITROGEN 10 mg/dL (7-17); CALCIUM 9.2 mg/dl (8.6-10.4); GLUCOSE,RANDOM 187 mg/dL (65-105)
[2017-08-13] MEDS: Azithromycin 500 MG in Sodium Chloride 0.9% 250 ML IVPB SCH (10:52)
[2017-08-13] MEDS: Enoxaparin 40 mg Syringe SC SCH (10:52)
[2017-08-13] MEDS: Pantoprazole 40 mg EC Tab PO SCH (10:52)
[2017-08-13] MEDS: Potassium Chloride 20 mEq ER Tab PO SCH (10:52)
[2017-08-13 16:35] VITALS: RESP 20
--- NOTE | 2017-08-13 17:07 | CP.PCM.PN ---
Subjective - Date & Time of Evaluation Date of Evaluation: 08/13/17 Time of Evaluation: 07:40 - Subjective Subjective: clinically same Objective - Vital Signs/Intake and Output Vital Signs (last 24 hours): Temp Pulse Resp BP Pulse Ox 98.8 F 109 H 20 105/72 95 08/13/17 15:00 08/13/17 15:00 08/13/17 15:00 08/13/17 15:00 08/13/17 15:00 Intake and Output: 08/13/17 08/13/17 06:59 18:59 Intake Total 880 950 Balance 880 950 - Medications Medications: Current Medications Acetaminophen (Tylenol 325mg Tab) 650 mg PO Q8 PRN PRN Reason: Headache Last Admin: 08/13/17 16:55 Dose: 650 mg Albuterol/Ipratropium (Duoneb 3 Mg/0.5 Mg (3 Ml) Ud) 3 ml INH RQ6 [facility] Last Admin: 08/13/17 13:29 Dose: 3 ml Enoxaparin Sodium (Lovenox) 40 mg SC DAILY [facility] Last Admin: 08/13/17 10:52 Dose: 40 mg Azithromycin 500 mg/ Sodium (Chloride) 250 mls @ 250 mls/hr IVPB DAILY [facility] Last Admin: 08/13/17 10:52 Dose: 250 mls/hr Potassium Chloride (Potassium Chloride 20 Meq/100 Ml) 20 meq in 100 mls @ 50 mls/hr IVPB Q2 [facility] Last Admin: 08/12/17 00:06 Dose: 50 mls/hr Vancomycin/Sodium Chloride (Vancomycin 1 Gm/Ns 200 Ml) 1 gm in 200 mls @ 133.333 mls/hr IVPB Q12H [facility] Stop: 08/17/17 12:01 Last Admin: 08/13/17 11:50 Dose: 133.333 mls/hr Aztreonam 1 gm/ Sodium (Chloride) 100 mls @ 100 mls/hr IVPB Q8H [facility] Last Admin: 08/13/17 13:45 Dose: 100 mls/hr Montelukast Sodium (Singulair) 10 mg PO HS [facility] Last Admin: 08/12/17 21:24 Dose: 10 mg Pantoprazole Sodium (Protonix Ec Tab) 40 mg PO DAILY [facility] Last Admin: 08/13/17 10:52 Dose: 40 mg Pneumococcal Polyvalent Vaccine (Pneumovax 23 Vaccine) 0.5 ml IM .ONCE ONE Stop: 08/14/17 10:01 Potassium Chloride (K-Dur 20 Meq Er Tab) 20 meq PO DAILY [facility] Last Admin: 08/13/17 10:52 Dose: 20 meq Fluticasone/Salmeterol (Advair Diskus 250/50) 1 puff INH RQ12 [facility] Last Admin: 08/13/17 07:32 Dose: 1 puff - Labs Labs: 08/13/17 09:08 08/13/17 09:08 - Constitutional Appears: Well - Head Exam Head Exam: ATRAUMATIC, NORMAL INSPECTION, NORMOCEPHALIC - Eye Exam Eye Exam: EOMI, Normal appearance, PERRL Pupil Exam: NORMAL ACCOMODATION, PERRL - ENT Exam ENT Exam: Mucous Membranes Moist, Normal Exam - Neck Exam Neck Exam: Full ROM, Normal Inspection. absent: Lymphadenopathy - Respiratory Exam Respiratory Exam: Decreased Breath Sounds - Cardiovascular Exam Cardiovascular Exam: REGULAR RHYTHM, +S1, +S2 - GI/Abdominal Exam GI & Abdominal Exam: Soft, Diminished Bowel Sounds - Rectal Exam Rectal Exam: Deferred
--- NOTE | 2017-08-13 17:14 | CP.PCM.PN ---
Subjective - Date & Time of Evaluation Date of Evaluation: 08/13/17 Time of Evaluation: 17:14 Objective - Vital Signs/Intake and Output Vital Signs (last 24 hours): Temp Pulse Resp BP Pulse Ox 98.8 F 109 H 20 105/72 95 08/13/17 15:00 08/13/17 15:00 08/13/17 15:00 08/13/17 15:00 08/13/17 15:00 Intake and Output: 08/13/17 08/13/17 06:59 18:59 Intake Total 880 950 Balance 880 950 - Medications Medications: Current Medications Acetaminophen (Tylenol 325mg Tab) 650 mg PO Q8 PRN PRN Reason: Headache Last Admin: 08/13/17 16:55 Dose: 650 mg Albuterol/Ipratropium (Duoneb 3 Mg/0.5 Mg (3 Ml) Ud) 3 ml INH RQ6 [facility] Last Admin: 08/13/17 13:29 Dose: 3 ml Enoxaparin Sodium (Lovenox) 40 mg SC DAILY [facility] Last Admin: 08/13/17 10:52 Dose: 40 mg Azithromycin 500 mg/ Sodium (Chloride) 250 mls @ 250 mls/hr IVPB DAILY [facility] Last Admin: 08/13/17 10:52 Dose: 250 mls/hr Potassium Chloride (Potassium Chloride 20 Meq/100 Ml) 20 meq in 100 mls @ 50 mls/hr IVPB Q2 [facility] Last Admin: 08/12/17 00:06 Dose: 50 mls/hr Vancomycin/Sodium Chloride (Vancomycin 1 Gm/Ns 200 Ml) 1 gm in 200 mls @ 133.333 mls/hr IVPB Q12H [facility] Stop: 08/17/17 12:01 Last Admin: 08/13/17 11:50 Dose: 133.333 mls/hr Aztreonam 1 gm/ Sodium (Chloride) 100 mls @ 100 mls/hr IVPB Q8H [facility] Last Admin: 08/13/17 13:45 Dose: 100 mls/hr Montelukast Sodium (Singulair) 10 mg PO HS [facility] Last Admin: 08/12/17 21:24 Dose: 10 mg Pantoprazole Sodium (Protonix Ec Tab) 40 mg PO DAILY [facility] Last Admin: 08/13/17 10:52 Dose: 40 mg Pneumococcal Polyvalent Vaccine (Pneumovax 23 Vaccine) 0.5 ml IM .ONCE ONE Stop: 08/14/17 10:01 Potassium Chloride (K-Dur 20 Meq Er Tab) 20 meq PO DAILY [facility] Last Admin: 08/13/17 10:52 Dose: 20 meq Fluticasone/Salmeterol (Advair Diskus 250/50) 1 puff INH RQ12 [facility] Last Admin: 08/13/17 07:32 Dose: 1 puff - Labs Labs: 08/13/17 09:08 08/13/17 09:08
[2017-08-14] MEDS: Albuterol-Ipratrop 3 mg / 0.5 (3 ml) UD INH SCH ×4 (01:47→19:17)
[2017-08-14] MEDS: Aztreonam 1 GM in Sodium Chloride 0.9% 100 ML IVPB SCH ×2 (05:23→12:45)
[2017-08-14 08:35] LABS: BASO % 0.4 % (0.0-2.0); EOS # 0.2 K/uL (0.0-0.7); EOS % 1.5 % (0.0-4.0); HEMATOCRIT 35.1 % (34.0-47.0); LYMPH # 1.4 K/uL (1.0-4.3); LYMPH % 13.5 % (20.0-40.0); MEAN CELL VOLUME 87.6 fL (81.0-99.0); MEAN CORPUSCULAR HEMOGLOBIN 29.8 pg (27.0-31.0); MEAN PLATELET VOLUME 7.6 fL (7.2-11.7); MONO # 0.4 K/uL (0.0-0.8); MONO % 4.1 % (0.0-10.0); RED CELL DISTRIBUTION WIDTH 15.7 % (11.5-14.5); WHITE BLOOD COUNT 10.6 K/uL (4.8-10.8)
[2017-08-14] MEDS: Fluticasone-Salmeterol 250-50mcg Diskus INH SCH ×2 (08:38→19:16)
[2017-08-14 08:44] LABS: CHLORIDE 95 mmol/L (98-107); POTASSIUM 4.6 mmol/L (3.6-5.2); SODIUM 132 mmol/L (132-148)
[2017-08-14 08:46] LABS: GFR AFRICAN-AMERICAN > 60
[2017-08-14 08:47] LABS: ALB/GLOB RATIO 1.3 (1.0-2.1); ALKALINE PHOSPHATASE 74 U/L (38-126); ALT/SGPT 33 U/L (9-52); AST/SGOT 18 U/L (14-36); BILIRUBIN,TOTAL 0.9 mg/dL (0.2-1.3); BLOOD UREA NITROGEN 11 mg/dL (7-17); CARBON DIOXIDE 29 mmol/L (22-30); GLUCOSE,RANDOM 145 mg/dL (65-105); TOTAL PROTEIN 6.3 g/dL (6.3-8.3)
[2017-08-14 08:48] LABS: CALCIUM 9.6 mg/dl (8.6-10.4)
--- NOTE | 2017-08-14 09:55 | CP.PCM.PN ---
<CatherineMarisela H - Last Filed: 08/14/17 09:52> Subjective - Date & Time of Evaluation Date of Evaluation: 08/14/17 Time of Evaluation: 08:10 - Subjective Subjective: PGY3 Medicine Note - Dr. Radha Molina's service: Patient seen and examined at bedside this AM. Patient reports continued dry cough and right ear fullness. Patient reports LLQ abdominal pain with coughing. Patient denies SOB, wheezing, chest pain, nausea, vomiting, diarrhea, constipation, dysuria. Objective - Vital Signs/Intake and Output Vital Signs (last 24 hours): Temp Pulse Resp BP Pulse Ox 98.2 F 101 H 20 128/81 97 08/14/17 08:00 08/14/17 08:00 08/14/17 08:00 08/14/17 08:00 08/14/17 08:00 Intake and Output: 08/14/17 08/14/17 06:59 18:59 Intake Total 640 Balance 640 - Medications Medications: Current Medications Acetaminophen (Tylenol 325mg Tab) 650 mg PO Q8 PRN PRN Reason: Headache Last Admin: 08/14/17 05:21 Dose: 650 mg Albuterol/Ipratropium (Duoneb 3 Mg/0.5 Mg (3 Ml) Ud) 3 ml INH RQ6 [facility] Last Admin: 08/14/17 08:38 Dose: 3 ml Enoxaparin Sodium (Lovenox) 40 mg SC DAILY [facility] Last Admin: 08/13/17 10:52 Dose: 40 mg Azithromycin 500 mg/ Sodium (Chloride) 250 mls @ 250 mls/hr IVPB DAILY [facility] Last Admin: 08/13/17 10:52 Dose: 250 mls/hr Potassium Chloride (Potassium Chloride 20 Meq/100 Ml) 20 meq in 100 mls @ 50 mls/hr IVPB Q2 [facility] Last Admin: 08/12/17 00:06 Dose: 50 mls/hr Vancomycin/Sodium Chloride (Vancomycin 1 Gm/Ns 200 Ml) 1 gm in 200 mls @ 133.333 mls/hr IVPB Q12H [facility] Stop: 08/17/17 12:01 Last Admin: 08/13/17 23:40 Dose: 133.333 mls/hr Aztreonam 1 gm/ Sodium (Chloride) 100 mls @ 100 mls/hr IVPB Q8H [facility] Last Admin: 08/14/17 05:23 Dose: 100 mls/hr Montelukast Sodium (Singulair) 10 mg PO HS [facility] Last Admin: 08/13/17 22:05 Dose: 10 mg Pantoprazole Sodium (Protonix Ec Tab) 40 mg PO DAILY [facility] Last Admin: 08/13/17 10:52 Dose: 40 mg Pneumococcal Polyvalent Vaccine (Pneumovax 23 Vaccine) 0.5 ml IM .ONCE ONE Stop: 08/14/17 10:01 Potassium Chloride (K-Dur 20 Meq Er Tab) 20 meq PO DAILY [facility] Last Admin: 08/13/17 10:52 Dose: 20 meq Fluticasone/Salmeterol (Advair Diskus 250/50) 1 puff INH RQ12 [facility] Last Admin: 08/14/17 08:38 Dose: 1 puff - Labs Labs: 08/14/17 08:20 08/14/17 08:20 - Constitutional Appears: Non-toxic, No Acute Distress - Head Exam Head Exam: NORMAL INSPECTION - Eye Exam Eye Exam: EOMI - ENT Exam ENT Exam: Mucous Membranes Moist - Respiratory Exam Respiratory Exam: absent: Accessory Muscle Use, Clear to Ausculation Bilateral, Wheezes, Respiratory Distress Additional comments: coarse breath sounds diffusely - Cardiovascular Exam Cardiovascular Exam: REGULAR RHYTHM, +S1, +S2. absent: Gallop, Rubs - GI/Abdominal Exam GI & Abdominal Exam: Soft, Normal Bowel Sounds. absent: Tenderness Additional comments: LLQ reducible hernia - Extremities Exam Extremities Exam: absent: Pedal Edema - Neurological Exam Neurological Exam: Alert, Awake, Oriented x3 - Psychiatric Exam Psychiatric exam: Normal Affect, Normal Mood - Skin Skin Exam: Normal Color, Warm Assessment and Plan - Assessment and Plan (Free Text) Assessment: COPD Improving Duoneb 3ml INH Rq6 [facility] Singulair 10mg PO HS Advair 250/50 1 puff INH Q12 [facility] Pulmonology consult - Dr. Galvin - help appreciated Pneumonia CXR 08/11 - mild bibasilar atelectasis; stable appearing small calcified granuloma left lower lobe (please see full report) ID consult - Dr. Decker - help appreciated WBC decreased to 10.6 from 12.4 yesterday Azithromycin 500mg IVPB daily, started 08/12, day 3 Aztreonam 1gm IVPB Q8, started 08/12, day 3 Vancomycin 1gm IVPB Q12H, started 08/12, day 3 Tylenol 650mg PO Q8 PRN Influenza negative Legionella negative Mycoplasma negative Urine culture negative Blood culture negative x 48 hours Tachycardia Likely secondary to duonebs Monitor Prophylaxis Lovenox 40mg SC daily Protonix 40mg PO daily All medical management per Dr. Radha Molina <Eddie Molina S - Last Filed: 08/14/17 22:16> Objective - Vital Signs/Intake and Output Vital Signs (last 24 hours): Temp Pulse Resp BP Pulse Ox 98 F 116 H 20 129/75 96 08/14/17 16:00 08/14/17 16:00 08/14/17 16:00 08/14/17 16:00 08/14/17 16:00 Intake and Output: 08/14/17 08/15/17 18:59 06:59 Intake Total 760 Balance 760 - Labs Labs: 08/14/17 08:20 08/14/17 08:20 Attending/Attestation - Attestation I have personally seen and examined this patient.: Yes I have fully participated in the care of the patient.: Yes I have reviewed all pertinent clinical information, including history, physical exam and plan: Yes Notes (Text): 08/14/17 22:16 case rolan tavares discussed with staff
[2017-08-14] MEDS ORDERED: Pneumococcal 23-Valent Vaccine IM ONE (10:00)
[2017-08-14] MEDS ORDERED: Influenza Vaccine 60 mcg/0.5 mL SYR (4YR UP) IM ONE (10:00)
[2017-08-14] MEDS: Potassium Chloride 20 mEq ER Tab PO SCH (10:55)
[2017-08-14] MEDS: Enoxaparin 40 mg Syringe SC SCH (10:55)
[2017-08-14] MEDS: Azithromycin 500 MG in Sodium Chloride 0.9% 250 ML IVPB SCH (10:55)
[2017-08-14] MEDS: Pantoprazole 40 mg EC Tab PO SCH (10:55)
[2017-08-14] MEDS: Vancomycin 1 gm/NS 200 ml 1 GM/200 ML BAG IVPB SCH (12:45)
--- NOTE | 2017-08-14 13:26 | CP.PCM.PN ---
Subjective - Date & Time of Evaluation Date of Evaluation: 08/14/17 Time of Evaluation: 13:25 - Subjective Subjective: Pt seen and examined No events overnight Objective - Vital Signs/Intake and Output Vital Signs (last 24 hours): Temp Pulse Resp BP Pulse Ox 98.2 F 101 H 20 128/81 97 08/14/17 08:00 08/14/17 08:00 08/14/17 08:00 08/14/17 08:00 08/14/17 08:00 Intake and Output: 08/14/17 08/14/17 06:59 18:59 Intake Total 640 Balance 640 - Medications Medications: Current Medications Acetaminophen (Tylenol 325mg Tab) 650 mg PO Q8 PRN PRN Reason: Headache Last Admin: 08/14/17 05:21 Dose: 650 mg Albuterol/Ipratropium (Duoneb 3 Mg/0.5 Mg (3 Ml) Ud) 3 ml INH RQ6 [facility] Last Admin: 08/14/17 08:38 Dose: 3 ml Enoxaparin Sodium (Lovenox) 40 mg SC DAILY [facility] Last Admin: 08/14/17 10:55 Dose: 40 mg Azithromycin 500 mg/ Sodium (Chloride) 250 mls @ 250 mls/hr IVPB DAILY [facility] Last Admin: 08/14/17 10:55 Dose: 250 mls/hr Potassium Chloride (Potassium Chloride 20 Meq/100 Ml) 20 meq in 100 mls @ 50 mls/hr IVPB Q2 [facility] Last Admin: 08/12/17 00:06 Dose: 50 mls/hr Vancomycin/Sodium Chloride (Vancomycin 1 Gm/Ns 200 Ml) 1 gm in 200 mls @ 133.333 mls/hr IVPB Q12H [facility] Stop: 08/17/17 12:01 Last Admin: 08/14/17 12:45 Dose: 133.333 mls/hr Aztreonam 1 gm/ Sodium (Chloride) 100 mls @ 100 mls/hr IVPB Q8H [facility] Last Admin: 08/14/17 12:45 Dose: 100 mls/hr Montelukast Sodium (Singulair) 10 mg PO HS [facility] Last Admin: 08/13/17 22:05 Dose: 10 mg Pantoprazole Sodium (Protonix Ec Tab) 40 mg PO DAILY [facility] Last Admin: 08/14/17 10:55 Dose: 40 mg Potassium Chloride (K-Dur 20 Meq Er Tab) 20 meq PO DAILY [facility] Last Admin: 08/14/17 10:55 Dose: 20 meq Fluticasone/Salmeterol (Advair Diskus 250/50) 1 puff INH RQ12 [facility] Last Admin: 08/14/17 08:38 Dose: 1 puff - Labs Labs: 08/14/17 08:20 08/14/17 08:20 - Head Exam Head Exam: NORMAL INSPECTION - Eye Exam Eye Exam: Normal appearance - ENT Exam ENT Exam: Mucous Membranes Moist - Respiratory Exam Respiratory Exam: Prolonged Expiratory Phase, Rhonchi - Cardiovascular Exam Cardiovascular Exam: REGULAR RHYTHM, +S1, +S2 - GI/Abdominal Exam GI & Abdominal Exam: Soft, Normal Bowel Sounds - Extremities Exam Extremities Exam: Normal Inspection - Skin Skin Exam: Normal Color Assessment and Plan - Assessment and Plan (Free Text) Assessment: COPD HTN Continue ABx Advair 250/50 1 P BID Bronchodilators O2 DVT/GI prophalaxis
--- NOTE | 2017-08-14 16:15 | CP.PCM.PN ---
Subjective - Date & Time of Evaluation Date of Evaluation: 08/14/17 Time of Evaluation: 04:00 - Subjective Subjective: dictated Objective - Vital Signs/Intake and Output Vital Signs (last 24 hours): Temp Pulse Resp BP Pulse Ox 98.2 F 98 H 20 128/81 92 L 08/14/17 08:00 08/14/17 14:48 08/14/17 08:00 08/14/17 08:00 08/14/17 14:48 Intake and Output: 08/14/17 08/14/17 06:59 18:59 Intake Total 640 760 Balance 640 760 - Medications Medications: Current Medications Acetaminophen (Tylenol 325mg Tab) 650 mg PO Q8 PRN PRN Reason: Headache Last Admin: 08/14/17 05:21 Dose: 650 mg Albuterol/Ipratropium (Duoneb 3 Mg/0.5 Mg (3 Ml) Ud) 3 ml INH RQ6 [facility] Last Admin: 08/14/17 13:57 Dose: 3 ml Enoxaparin Sodium (Lovenox) 40 mg SC DAILY [facility] Last Admin: 08/14/17 10:55 Dose: 40 mg Azithromycin 500 mg/ Sodium (Chloride) 250 mls @ 250 mls/hr IVPB DAILY [facility] Last Admin: 08/14/17 10:55 Dose: 250 mls/hr Potassium Chloride (Potassium Chloride 20 Meq/100 Ml) 20 meq in 100 mls @ 50 mls/hr IVPB Q2 [facility] Last Admin: 08/12/17 00:06 Dose: 50 mls/hr Vancomycin/Sodium Chloride (Vancomycin 1 Gm/Ns 200 Ml) 1 gm in 200 mls @ 133.333 mls/hr IVPB Q12H [facility] Stop: 08/17/17 12:01 Last Admin: 08/14/17 12:45 Dose: 133.333 mls/hr Aztreonam 1 gm/ Sodium (Chloride) 100 mls @ 100 mls/hr IVPB Q8H [facility] Last Admin: 08/14/17 12:45 Dose: 100 mls/hr Montelukast Sodium (Singulair) 10 mg PO HS [facility] Last Admin: 08/13/17 22:05 Dose: 10 mg Pantoprazole Sodium (Protonix Ec Tab) 40 mg PO DAILY [facility] Last Admin: 08/14/17 10:55 Dose: 40 mg Potassium Chloride (K-Dur 20 Meq Er Tab) 20 meq PO DAILY [facility] Last Admin: 08/14/17 10:55 Dose: 20 meq Fluticasone/Salmeterol (Advair Diskus 250/50) 1 puff INH RQ12 [facility] Last Admin: 08/14/17 08:38 Dose: 1 puff - Labs Labs: 08/14/17 08:20 08/14/17 08:20
[2017-08-14 16:36] VITALS: BP 129/75; PULSE 116; TEMP 98; O2SAT 96
--- NOTE | 2017-08-14 18:52 | CP.PCM.PN ---
Subjective - Date & Time of Evaluation Date of Evaluation: 08/14/17 Time of Evaluation: 08:40 - Subjective Subjective: clinically same Objective - Vital Signs/Intake and Output Vital Signs (last 24 hours): Temp Pulse Resp BP Pulse Ox 98 F 116 H 20 129/75 96 08/14/17 16:00 08/14/17 16:00 08/14/17 16:00 08/14/17 16:00 08/14/17 16:00 Intake and Output: 08/14/17 08/14/17 06:59 18:59 Intake Total 640 760 Balance 640 760 - Medications Medications: Current Medications Acetaminophen (Tylenol 325mg Tab) 650 mg PO Q8 PRN PRN Reason: Headache Last Admin: 08/14/17 05:21 Dose: 650 mg Albuterol/Ipratropium (Duoneb 3 Mg/0.5 Mg (3 Ml) Ud) 3 ml INH RQ6 [facility] Last Admin: 08/14/17 13:57 Dose: 3 ml Enoxaparin Sodium (Lovenox) 40 mg SC DAILY [facility] Last Admin: 08/14/17 10:55 Dose: 40 mg Azithromycin 500 mg/ Sodium (Chloride) 250 mls @ 250 mls/hr IVPB DAILY [facility] Last Admin: 08/14/17 10:55 Dose: 250 mls/hr Potassium Chloride (Potassium Chloride 20 Meq/100 Ml) 20 meq in 100 mls @ 50 mls/hr IVPB Q2 [facility] Last Admin: 08/12/17 00:06 Dose: 50 mls/hr Vancomycin/Sodium Chloride (Vancomycin 1 Gm/Ns 200 Ml) 1 gm in 200 mls @ 133.333 mls/hr IVPB Q12H [facility] Stop: 08/17/17 12:01 Last Admin: 08/14/17 12:45 Dose: 133.333 mls/hr Aztreonam 1 gm/ Sodium (Chloride) 100 mls @ 100 mls/hr IVPB Q8H [facility] Last Admin: 08/14/17 12:45 Dose: 100 mls/hr Montelukast Sodium (Singulair) 10 mg PO HS [facility] Last Admin: 08/13/17 22:05 Dose: 10 mg Pantoprazole Sodium (Protonix Ec Tab) 40 mg PO DAILY [facility] Last Admin: 08/14/17 10:55 Dose: 40 mg Potassium Chloride (K-Dur 20 Meq Er Tab) 20 meq PO DAILY [facility] Last Admin: 08/14/17 10:55 Dose: 20 meq Fluticasone/Salmeterol (Advair Diskus 250/50) 1 puff INH RQ12 [facility] Last Admin: 08/14/17 08:38 Dose: 1 puff - Labs Labs: 08/14/17 08:20 08/14/17 08:20 - Constitutional Appears: Well - Head Exam Head Exam: ATRAUMATIC, NORMAL INSPECTION, NORMOCEPHALIC - Eye Exam Eye Exam: EOMI, Normal appearance, PERRL Pupil Exam: NORMAL ACCOMODATION, PERRL - ENT Exam ENT Exam: Mucous Membranes Moist, Normal Exam - Neck Exam Neck Exam: Full ROM, Normal Inspection. absent: Lymphadenopathy - Respiratory Exam Respiratory Exam: Decreased Breath Sounds - Cardiovascular Exam Cardiovascular Exam: REGULAR RHYTHM, +S1, +S2 - GI/Abdominal Exam GI & Abdominal Exam: Soft, Diminished Bowel Sounds - Rectal Exam Rectal Exam: Deferred
--- NOTE | 2017-08-15 00:43 | PN ---
DATE: SUBJECTIVE: The patient is feeling a lot better. She afebrile. She is still coughing, and she is going to the rehab. PHYSICAL EXAMINATION: GENERAL: She is alert and oriented. VITAL SIGNS: T-max is 101, pulse rate is 101 to 98, temperature is 98.2, blood pressure is 104/66, respirations are 20 and saturation is a kind of 97 to 92. HEENT: Head is atraumatic and normocephalic. Tongue is moist. NECK: Supple. LUNGS: Clear. No crackles or rales present. Decreased breath sounds bilaterally, occasional wheeze. HEART: S1 and S2 are regular. ABDOMEN: Soft and nontender. No guarding. No rigidity present. EXTREMITIES: Have no edema, no cyanosis. LABORATORY DATA: White count is 10.6, hemoglobin 11.9, hematocrit 35.1 and platelet count is 245. The cultures are all negative, urine as well as blood. Serology came as influenza type is negative, urine Legionella is negative, Mycoplasma IgM is negative. Sodium is 132, potassium 4.6, chloride 95, CO2 is 29, anion gap is 13, BUN is 11 and creatinine is 0.7. ASSESSMENT AND PLAN: This patient has lung cancer with metastases to the brain and came in with chronic obstructive pulmonary disease exacerbation and pneumonia, is improving, and I told them to continue with Levaquin p.o. as she is improving. Here, Levaquin or Avelox was not available. Malcom Decker MD
== END 2017-08-14 19:40 | DRG 190 ==
LOC: C.ER 18:25 → C.9E 22:03 → C.3T 22:56
PROVIDERS: ADMIT Internal Medicine Nephrology; ATTEND Internal Medicine Nephrology
DX: J44.0 Chronic obstructive pulmonary disease with (acute) lower respiratory infection (principal); J18.9 Pneumonia, unspecified organism; C79.31 Secondary malignant neoplasm of brain; E87.1 Hypo-osmolality and hyponatremia; I69.354 Hemiplegia and hemiparesis following cerebral infarction affecting left non-dominant side; J98.11 Atelectasis; J44.1 Chronic obstructive pulmonary disease with (acute) exacerbation; F17.200 Nicotine dependence, unspecified, uncomplicated; I10 Essential (primary) hypertension; R32 Unspecified urinary incontinence; Z85.118 Personal history of other malignant neoplasm of bronchus and lung; Z92.21 Personal history of antineoplastic chemotherapy; Z92.3 Personal history of irradiation; Z95.5 Presence of coronary angioplasty implant and graft

== ENCOUNTER 2018-01-22 14:47 | Inpatient (IN) | payer MEDICARE, MEDICAID ==
[2018-01-22 14:52] VITALS: BMI 28.3
[2018-01-22] MEDS ORDERED: Sodium Chloride 0.9% 1,000 ML IV ONE (14:52)
--- NOTE | 2018-01-22 15:03 | C.PDOC ---
History Of Present Illness 67 year old female with PMHx of COPD is brought to the ED by ambulace from [facility] for evaluation of seizure like activity. Patient had brain surgery done at [facility] last year, it is known to have seizures after having brain surgery performed. Patient its currently taking Keppra with good compliance. Patient had shaking movement able to speak during the episode. Patient did not have a postictal phase at the [facility] or at the ED Time Seen by Provider: 01/22/18 14:50 Chief Complaint (Nursing): Medical Clearance History Per: EMS History/Exam Limitations: no limitations Onset/Duration Of Symptoms: Hrs Current Symptoms Are (Timing): Still Present Recent travel outside of the [place]: No Additional History Per: Patient Past Medical History Reviewed: Historical Data, Nursing Documentation, Vital Signs Vital Signs: Last Vital Signs Temp 98.8 F 01/22/18 14:54 Pulse 116 H 01/22/18 14:54 Resp 17 01/22/18 14:54 BP 158/93 H 01/22/18 14:54 Pulse Ox 96 01/22/18 14:54 - Medical History PMH: COPD, CVA, HTN, Hyperthyroidism Denies: Depression (PRESENTLY DEPRESSED), Chronic Kidney Disease Surgical History: Coronary Stent Other Surgeries: Brain surgery (done at [facility] last year) - [facility] Procedures ENDOSCOPIC BRONCHIAL BX (01/07/15) RESP TRACT INTUBAT NEC (01/07/15) Family History: States: Unknown Family Hx - Social History Hx Tobacco Use: Yes Hx Alcohol Use: No Hx Substance Use: No - Immunization History Hx Tetanus Toxoid Vaccination: No Hx Influenza Vaccination: No Hx Pneumococcal Vaccination: No Review Of Systems Constitutional: Negative for: Fever, Chills Cardiovascular: Negative for: Chest Pain Respiratory: Negative for: Shortness of Breath Gastrointestinal: Negative for: Vomiting, Abdominal Pain Genitourinary: Negative for: Incontinence Neurological: Negative for: Weakness, Numbness, Headache, Dizziness Physical Exam - Physical Exam Appears: Non-toxic, No Acute Distress Skin: Normal Color, Warm, Dry Head: Atraumatic, Normacephalic Eye(s): bilateral: Normal Inspection Nose: No Discharge Oral Mucosa: Moist Neck: Normal ROM, Supple Chest: Symmetrical Cardiovascular: Rhythm Regular, No Murmur Respiratory: No Rales, No Rhonchi, No Wheezing, Other (Coarse breath sounds B/L) Gastrointestinal/Abdominal: Soft, No Tenderness, No Guarding, No Rebound Extremity: Normal ROM, No Tenderness, No Swelling Neurological/Psych: Oriented x3 (10 seconds after shaking ), Normal Speech, Normal Cognition Gait: Unable To Assess ED Course And Treatment - Laboratory Results Result Diagrams: 01/22/18 15:01 01/22/18 15:01 Lab Interpretation: Abnormal ECG: Interpreted By Me ECG Rhythm: Sinus Tachycardia ECG Interpretation: Abnormal Rate From EC O2 Sat by Pulse Oximetry: 100 Pulse Ox Interpretation: Normal - Radiology CXR: Interpreted by Me CXR Interpretation: Yes: No Acute Disease Progress Note: ativan, cerebyx, IVF Reevaluation Time: 15:52 Reassessment Condition: Improved - Physician Consult Information Outcome Of Conversation: 1450, 1600: d/w Dr Radha Molina- ok to admit. Medical Decision Making Medical Decision Making: Impression: seizure like activity Plan: * EKG * Labs * CXR * IV fluids * Keppra IVPB * UA recurrent szr- partial as pt usually awake and talking during partial tonic- clonic activity and no post-ictal phase. probably related to brain surgery @ [facility] 2017 Disposition Doctor Will See Patient In The: Hospital Counseled Patient/Family Regarding: Studies Performed, Diagnosis - Disposition Disposition: HOSPITALIZED Disposition Time: 15:53 Condition: FAIR Forms: [facility] (Pashto) - Clinical Impression Clinical Impression: Tonic-clonic seizure - Scribe Statement The provider has reviewed the documentation as recorded by the Scribe Deep Mccoy All medical record entries made by the Scribe were at my direction and personally dictated by me. I have reviewed the chart and agree that the record accurately reflects my personal performance of the history, physical exam, medical decision making, and the department course for this patient. I have also personally directed, reviewed, and agree with the discharge instructions and disposition.
[2018-01-22 15:11] LABS: BASO # 0.1 K/uL (0.0-0.2); BASO % 0.8 % (0.0-2.0); EOS # 0.5 K/uL (0.0-0.7); EOS % 3.1 % (0.0-4.0); LYMPH # 3.3 K/uL (1.0-4.3); LYMPH % 18.7 % (20.0-40.0); MEAN CORPUSCULAR HEMOGLOBIN 28.9 pg (27.0-31.0); MEAN PLATELET VOLUME 8.3 fL (7.2-11.7); MONO # 0.7 K/uL (0.0-0.8); MONO % 3.9 % (0.0-10.0); NEUT # 12.9 K/uL (1.8-7.0); NEUT % 73.5 % (50.0-75.0); NRBC % 0.1 % (0.0-2.0); RBC 5.14 Mil/uL (3.80-5.20)
[2018-01-22] MEDS ORDERED: Sodium Chloride 0.9% 1,000 ML ONE (15:11)
[2018-01-22 15:15] LABS: HEMOGLOBIN 14.8 g/dL (11.0-16.0); WHITE BLOOD COUNT 17.5 K/uL (4.8-10.8)
[2018-01-22] MEDS ORDERED: levETIRAcetam 1,000 MG in Sodium Chloride 0.9% 100 ML IVPB SCH (15:15)
[2018-01-22 15:16] LABS: MEAN CELL VOLUME 84.8 fL (81.0-99.0)
[2018-01-22 15:19] LABS: GFR AFRICAN-AMERICAN > 60; GFR NON-AFRICAN AMERICAN > 60
[2018-01-22 15:25] LABS: ALB/GLOB RATIO 1.1 (1.0-2.1); ALBUMIN 4.8 g/dL (3.5-5.0); ALT/SGPT 18 U/L (9-52); AST/SGOT 38 U/L (14-36); BLOOD UREA NITROGEN 19 mg/dL (7-17)
--- NOTE | 2018-01-22 17:57 | RAD ---
PROCEDURE: CHEST RADIOGRAPH, 1 VIEW HISTORY: Seizure COMPARISON: 08/11/2017. FINDINGS: LUNGS: Clear. PLEURA: No pneumothorax or pleural fluid seen. CARDIOVASCULAR: No radiographic findings to suggest acute or significant cardiovascular disease. OSSEOUS STRUCTURES: No significant abnormalities. VISUALIZED UPPER ABDOMEN: Normal. OTHER FINDINGS: None. IMPRESSION: No active disease. No acute/significant interval changes. Concordant results with the preliminary interpretation rendered by the emergency department physician procedure.
[2018-01-22] MEDS ORDERED: Alum-Mag Hydrox-Simethicone Susp (30 mL) PO PRN (19:32)
[2018-01-22] MEDS ORDERED: Home Med 1 UNIT (Naproxen [Naprosyn] 500 MG) PO PRN (19:32)
[2018-01-22] MEDS ORDERED: Magnesium Hydroxide Susp 30 ml UD PO PRN (19:32)
[2018-01-22] MEDS ORDERED: oxyCODONE 5 mg Immediate Release Tab PO PRN (19:32)
--- NOTE | 2018-01-22 20:26 | CP.PCM.HP ---
Past Patient History - Infectious Disease Hx of Infectious Diseases: None - Tetanus Immunizations Tetanus Immunization: Unknown - Past Medical History & Family History Past Medical History?: Yes - Past Social History Smoking Status: Former Smoker - CARDIAC Hx Cardiac Disorders: Yes Hx Hypertension: Yes - PULMONARY Hx Respiratory Disorders: Yes Hx Chronic Obstructive Pulmonary Disease (COPD): Yes - NEUROLOGICAL Hx Neurological Disorder: Yes HX Cerebrovascular Accident: Yes - HEENT Hx HEENT Problems: No - RENAL Hx Chronic Kidney Disease: No - ENDOCRINE/METABOLIC Hx Endocrine Disorders: Yes Hx Hyperthyroidism: Yes - HEMATOLOGICAL/ONCOLOGICAL Hx Blood Disorders: No Hx Blood Transfusions: No Hx Cancer: Yes (small cell lung cancer 2014) Hx Chemotherapy: Yes (plus radiation) - INTEGUMENTARY Hx Dermatological Problems: No - MUSCULOSKELETAL/RHEUMATOLOGICAL Hx Falls: No - GASTROINTESTINAL Hx Gastrointestinal Disorders: Yes Hx Constipation: Yes Hx Gastroesophageal Reflux: Yes (w/ esophagitis) - GENITOURINARY/GYNECOLOGICAL Hx Genitourinary Disorders: No - PSYCHIATRIC Hx Psychophysiologic Disorder: Yes Hx Depression: No (PRESENTLY DEPRESSED) Hx Substance Use: No - SURGICAL HISTORY Hx Surgeries: Yes Hx Coronary Stent: Yes Other/Comment: 08/2017 "brain tumor removed" at [facility] - ANESTHESIA Hx Anesthesia: Yes Hx Anesthesia Reactions: No Hx Malignant Hyperthermia: No Meds Allergies/Adverse Reactions: Allergies Allergy/AdvReac Type Severity Reaction Status Date / Time FISH Allergy Verified 01/22/18 15:10 iodine Allergy Verified 01/22/18 15:10 iron Allergy Verified 01/22/18 15:10 Penicillins Allergy Verified 01/22/18 15:10 Sulfa (Sulfonamide Allergy Verified 01/22/18 15:10 Antibiotics) seafood Allergy Uncoded 08/11/17 18:53 Results - Vital Signs Recent Vital Signs: Last Vital Signs Temp 98.5 F 01/22/18 19:07 Pulse 93 H 01/22/18 19:08 Resp 20 01/22/18 19:07 BP 128/82 01/22/18 19:07 Pulse Ox 97 01/22/18 19:07 - Labs Result Diagrams: 01/22/18 15:01 01/22/18 15:01 Labs: Laboratory Results - last 24 hr 01/22/18 01/22/18 15:01 15:01 WBC 17.5 H D RBC 5.14 Hgb 14.8 D Hct 43.6 MCV 84.8 D MCH 28.9 MCHC 34.0 RDW 15.0 H Plt Count 318 MPV 8.3 Neut % (Auto) 73.5 Lymph % (Auto) 18.7 L [place] % (Auto) 3.9 Eos % (Auto) 3.1 Baso % (Auto) 0.8 Neut # (Auto) 12.9 H Lymph # (Auto) 3.3 [place] # (Auto) 0.7 Eos # (Auto) 0.5 Baso # (Auto) 0.1 Sodium 146 Potassium 4.5 Chloride 101 Carbon Dioxide 21 L Anion Gap 29 H BUN 19 H Creatinine 0.9 Est GFR ( Amer) > 60 Est GFR (Non-Af Amer) > 60 Random Glucose 129 H Calcium 10.0 Total Bilirubin 0.9 AST 38 H D ALT 18 Alkaline Phosphatase 92 Total Creatine Kinase 69 Total Protein 9.1 H Albumin 4.8 Globulin 4.3 H Albumin/Globulin Ratio 1.1
[2018-01-23 00:47] LABS: SQUAMOUS EPITHIAL 40 /hpf (0-5); URINE BACTERIA MOD (<OCC); URINE BILIRUBIN NEGATIVE (NEGATIVE); URINE CLARITY Hazy (Clear); URINE COLOR Yellow (YELLOW); URINE GLUCOSE (UA) NORMAL (Normal); URINE LEUKOCYTE ESTERASE TRACE Leu/uL (Negative); URINE PROTEIN 1+ mg/dL (NEGATIVE); URINE UROBILINOGEN NORMAL mg/dL (0.2-1.0)
[2018-01-23 00:51] LABS: URINE BLOOD NEGATIVE (NEGATIVE)
[2018-01-23 00:52] LABS: BARBITURATES, UR NEGATIVE (NEGATIVE); BENZODIAZEPINES, UR NEGATIVE (NEGATIVE); OPIATES, UR NEGATIVE (NEGATIVE); PHENCYCLIDINE, UR NEGATIVE (NEGATIVE)
--- NOTE | 2018-01-23 07:09 | CP.PCM.CON ---
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 RIGHT CERERAL PATHOLOGY KEPPRA 750 MG BID NO DEPAKOTE EEG/MRI WITH [facility] Past Patient History - Infectious Disease Hx of Infectious Diseases: None - Tetanus Immunizations Tetanus Immunization: Unknown - Past Medical History & Family History Past Medical History?: Yes - Past Social History Smoking Status: Light Smoker < 10 Cigarettes Daily - CARDIAC Hx Cardiac Disorders: Yes Hx Hypertension: Yes - PULMONARY Hx Respiratory Disorders: Yes Hx Chronic Obstructive Pulmonary Disease (COPD): Yes - NEUROLOGICAL Hx Neurological Disorder: Yes HX Cerebrovascular Accident: Yes - HEENT Hx HEENT Problems: No - RENAL Hx Chronic Kidney Disease: No - ENDOCRINE/METABOLIC Hx Endocrine Disorders: Yes Hx Hyperthyroidism: Yes - HEMATOLOGICAL/ONCOLOGICAL Hx Blood Disorders: No Hx Blood Transfusions: No Hx Cancer: Yes (small cell lung cancer 2014) Hx Chemotherapy: Yes (plus radiation) - INTEGUMENTARY Hx Dermatological Problems: No - MUSCULOSKELETAL/RHEUMATOLOGICAL Hx Falls: No - GASTROINTESTINAL Hx Gastrointestinal Disorders: Yes Hx Constipation: Yes Hx Gastroesophageal Reflux: Yes (w/ esophagitis) - GENITOURINARY/GYNECOLOGICAL Hx Genitourinary Disorders: No - PSYCHIATRIC Hx Substance Use: No - SURGICAL HISTORY Hx Surgeries: Yes Hx Coronary Stent: Yes Other/Comment: 08/2017 "brain tumor removed" at [facility] - ANESTHESIA Hx Anesthesia: Yes Hx Anesthesia Reactions: No Hx Malignant Hyperthermia: No Meds Allergies/Adverse Reactions: Allergies Allergy/AdvReac Type Severity Reaction Status Date / Time FISH Allergy Verified 01/22/18 15:10 iodine Allergy Verified 01/22/18 15:10 iron Allergy Verified 01/22/18 15:10 Penicillins Allergy Verified 01/22/18 15:10 Sulfa (Sulfonamide Allergy Verified 01/22/18 15:10 Antibiotics) seafood Allergy Uncoded 08/11/17 18:53 - Medications Medications: Current Medications Acetaminophen (Tylenol 325mg Tab) 650 mg PO Q4H PRN PRN Reason: Fever >100.4 F Al Hydrox/Mg Hydrox/Simethicone (Maalox Plus 30 Ml) 30 ml PO Q4H PRN PRN Reason: heartburn & indigestion Amlodipine Besylate (Norvasc) 5 mg PO DAILY [facility] Docusate Sodium (Colace) 100 mg PO Q12H PRN PRN Reason: Constipation Enoxaparin Sodium (Lovenox) 40 mg SC DAILY [facility] Gabapentin (Neurontin) 100 mg PO TID [facility] Gemfibrozil (Lopid) 600 mg PO BID [facility] Home Med (Meloxicam [Meloxicam]) 15 mg PO DAILY [facility] Home Med (Naproxen [Naprosyn]) 500 mg PO Q12H PRN PRN Reason: Pain, moderate (4-7) Levetiracetam (Keppra) 500 mg PO BID [facility] Levetiracetam (Keppra) 250 mg PO BID [facility] Lorazepam (Ativan) 1 mg IVP ONCE ONE Stop: 01/23/18 06:57 Magnesium Hydroxide (Milk Of Magnesia) 30 ml PO Q24H PRN PRN Reason: Constipation Ondansetron HCl (Zofran Odt) 4 mg PO Q6H PRN PRN Reason: Nausea/Vomiting Oxycodone HCl (Oxycodone Immediate Release Tab) 5 mg PO Q4H PRN PRN Reason: Pain, severe (8-10) Pantoprazole Sodium (Protonix Ec Tab) 40 mg PO DAILY [facility] Sertraline HCl (Zoloft) 100 mg PO DAILY [facility] Results - Vital Signs Recent Vital Signs: Last Vital Signs Temp 98.3 F 01/22/18 23:36 Pulse 83 01/22/18 23:36 Resp 20 01/22/18 23:36 BP 110/67 01/22/18 23:36 Pulse Ox 98 01/22/18 23:36 - Labs Result Diagrams: 01/22/18 15:01 01/22/18 15:01 Labs: Laboratory Results - last 24 hr 01/22/18 01/22/18 01/23/18 15:01 15:01 00:31 WBC 17.5 H D RBC 5.14 Hgb 14.8 D Hct 43.6 MCV 84.8 D MCH 28.9 MCHC 34.0 RDW 15.0 H Plt Count 318 MPV 8.3 Neut % (Auto) 73.5 Lymph % (Auto) 18.7 L [place] % (Auto) 3.9 Eos % (Auto) 3.1 Baso % (Auto) 0.8 Neut # (Auto) 12.9 H Lymph # (Auto) 3.3 [place] # (Auto) 0.7 Eos # (Auto) 0.5 Baso # (Auto) 0.1 Sodium 146 Potassium 4.5 Chloride 101 Carbon Dioxide 21 L Anion Gap 29 H BUN 19 H Creatinine 0.9 Est GFR ( Amer) > 60 Est GFR (Non-Af Amer) > 60 Random Glucose 129 H Calcium 10.0 Total Bilirubin 0.9 AST 38 H D ALT 18 Alkaline Phosphatase 92 Total Creatine Kinase 69 Total Protein 9.1 H Albumin 4.8 Globulin 4.3 H Albumin/Globulin Ratio 1.1 Urine Color Yellow Urine Clarity Hazy Urine pH 5.0 Ur Specific [place] 1.020 Urine Protein 1+ H Urine Glucose (UA) Normal Urine Ketones Negative Urine Blood Negative Urine Nitrate Negative Urine Bilirubin Negative Urine Urobilinogen Normal Ur Leukocyte Esterase Trace Urine WBC (Auto) 6 H Urine RBC (Auto) 2 Ur Squamous Epith Cells 40 H Urine Bacteria Mod H Hyaline Casts 3-5 H Urine Opiates Screen Urine Methadone Screen Ur Barbiturates Screen Ur Phencyclidine Scrn Ur Amphetamines Screen U Benzodiazepines Scrn U Oth Cocaine Metabols U Cannabinoids Screen 01/23/18 00:31 WBC RBC Hgb Hct MCV MCH MCHC RDW Plt Count MPV Neut % (Auto) Lymph % (Auto) [place] % (Auto) Eos % (Auto) Baso % (Auto) Neut # (Auto) Lymph # (Auto) [place] # (Auto) Eos # (Auto) Baso # (Auto) Sodium Potassium Chloride Carbon Dioxide Anion Gap BUN Creatinine Est GFR ( Amer) Est GFR (Non-Af Amer) Random Glucose Calcium Total Bilirubin AST ALT Alkaline Phosphatase Total Creatine Kinase Total Protein Albumin Globulin Albumin/Globulin Ratio Urine Color Urine Clarity Urine pH Ur Specific [place] Urine Protein Urine Glucose (UA) Urine Ketones Urine Blood Urine Nitrate Urine Bilirubin Urine Urobilinogen Ur Leukocyte Esterase Urine WBC (Auto) Urine RBC (Auto) Ur Squamous Epith Cells Urine Bacteria Hyaline Casts Urine Opiates Screen Negative Urine Methadone Screen Negative Ur Barbiturates Screen Negative Ur Phencyclidine Scrn Negative Ur Amphetamines Screen Negative U Benzodiazepines Scrn Negative U Oth Cocaine Metabols Negative U Cannabinoids Screen Negative
[2018-01-23] MEDS ORDERED: Naproxen 550 mg Tab PO PRN (07:30)
[2018-01-23] MEDS ORDERED: Divalproex 500 mg DR Tab PO SCH (10:00)
[2018-01-23] MEDS ORDERED: Gadodiamide 287 mg/ml 20 ml IV ONE (10:00)
[2018-01-23] MEDS ORDERED: Home Med 1 UNIT (Meloxicam [Meloxicam] 15 MG) PO SCH ×2 (10:00)
--- NOTE | 2018-01-23 11:09 | CARD ---
APPROVED REPORT EKG Measurement Heart [id number] <Conclusion> Sinus tachycardia Otherwise normal ECG
[2018-01-23] MEDS: Enoxaparin 40 mg Syringe SC SCH (11:47)
[2018-01-23] MEDS: Pantoprazole 40 mg EC Tab PO SCH (11:48)
--- NOTE | 2018-01-23 12:40 | MRI ---
PROCEDURE: MRI BRAIN WITH AND WITHOUT CONTRAST HISTORY: seizure-like activity COMPARISON: None. TECHNIQUE: Multiplanar, multisequence MR images of the brain were obtained with and without intravenous contrast enhancement. 12 mL of Omniscan FINDINGS: HEMORRHAGE: None DWI: No evidence of an acute or early subacute infarction. BRAIN PARENCHYMA: No mass,mass effect or edema. There is focal atrophy in the right cerebellar hemisphere. Mild microvascular changes are seen in the periventricular white matter. ENHANCEMENT: There is an enhancing lesion along the medial surface of the right posterior frontal lobe. The lesion measures 23 mm in height by 15 mm AP x 9 mm wide. This could represent a meningioma or metastatic lesion arising from the falx. There is some focal thickening and enhancement of the falx. There is a moderate amount of vasogenic edema which is more suggestive of a metastatic lesion. VENTRICLES: Unremarkable. No hydrocephalus. CRANIUM: Unremarkable. ORBITS: Grossly unremarkable. PARANASAL SINUSES/MASTOIDS: Clear VASCULAR SYSTEM: Skull base flow voids intact. OTHER FINDINGS: None . IMPRESSION: Enhancing lesion in the right medial frontal lobe abutting the falx. There is a moderate amount of vasogenic edema. Findings are most consistent with metastatic disease. A meningioma is possible. See comments
--- NOTE | 2018-01-23 18:14 | CON ---
DATE: ATTENDING PHYSICIAN: Cyndie Molina MD The patient is in room number 557, bed A. REASON FOR CONSULTATION: Possible seizures. CHIEF COMPLAINT: The patient was brought in from the halfway with a history of possible seizures. From neurological point of view, I was called in to evaluate her for further management. HISTORY OF PRESENT ILLNESS: Ms. Kourtney Jean is a 67-year-old right-handed Sets[place]-speaking female from the halfway, being witnessed with seizure-like activities. She states that she had a spasm on her left side with involuntary movement which she could not able to control, which happened three times, which lasted for about a few minutes one after the other which she could not able to control. However, she could be able to communicate and talk during the whole process of the attack. No warning. No post event confusion or disorientation. However, she did have urinary incontinence in the bed during the episode. At present, she denies any weakness since she has been admitted in the hospital. 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 We did a craniotomy, possible metastasis on her right side of the cerebrum in 08/2018 at [facility]. No seizure medication was placed. PERSONAL HISTORY: Still she smokes. No alcohol use. MEDICATIONS AT PRESENT IN THE HOSPITAL: Keppra, Lopid, Lovenox, magnesium oxide, gabapentin, Norvasc, oxycodone, Protonix, Zofran, sertraline. REVIEW OF SYSTEMS: The 12-point review of systems being reviewed from neuro, new involuntary movement on her left side. PHYSICAL EXAMINATION: VITAL SIGNS: Blood pressure 110/67, with mean artery pressure of 81, respiratory rate 16, temperature afebrile. NECK: Supple. No carotid bruits. HEART: Heart sounds regular. CHEST: Fair air entry. EXTREMITIES: No edema in legs. NEUROLOGIC: Mental status examination: She is awake, alert, and oriented to person, place, and time. Speech is clear. Naming, repetition, fluency, comprehension all within normal. Cranial nerve examination: Visual field intact. Pupils reactive to light. Extraocular movements normal. No nystagmus. No facial sensory deficit. No facial asymmetry. Hearing is normal. Tongue is midline. Good gag. Motor examination: Outstretched hand with eyes closed, mild drift noted on her left side and hand intrinsic public health outreach worker strength is also decreased on her left side to compare with the right side. No tremor noted during outstretched hand with eyes closed. Strength is close to equal on both sides. However, she twisted her left leg when both legs were elevated at one time. Deep tendon reflexes absent. Plantars are upgoing on both sides. Sensory examination grossly intact. No cortical sensory loss. Finger-nose test, mild dysmetria noted on her left side proportionate to her weakness. Gait is deferred at this time. BLOOD WORKUP: WBC 17.5, hemoglobin 14.8, hematocrit 43.6, platelets 318. Sodium 146, potassium 4.5, chloride 101, bicarbonate 21, creatinine 0.9, GFR more than 60, glucose 129, calcium 10.0, AST 38. Urine shows 1+ proteinuria with moderate amount of bacteria. CONCLUSION: Ms. 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 Considering her risk factor of small cell carcinoma and her craniotomy for her decompression of her tumor in the past could be the source or it could be the reoccurrence of the tumor. RECOMMENDATIONS: 1. Continue one antiepileptic drug to control her seizures, I will prefer her Keppra 750 mg twice a day. We will titrate her as she tolerates. 2. Hydration. 3. MRI of the brain with and without gadolinium. 4. Electroencephalogram also recommended. Considering her lung history, the patient should have a pulmonary consultation and that has to be studied as well. The patient's condition has been discussed with her. She agrees with my plan of management. The patient will be followed closely with you. Paul Lorenzo MD
--- NOTE | 2018-01-23 21:53 | CP.PCM.PN ---
Subjective - Date & Time of Evaluation Date of Evaluation: 01/23/18 Time of Evaluation: 11:40 - Subjective Subjective: clinically same Objective - Vital Signs/Intake and Output Vital Signs (last 24 hours): Temp Pulse Resp BP Pulse Ox 98.4 F 86 18 104/70 96 01/23/18 21:50 01/23/18 21:50 01/23/18 21:50 01/23/18 21:50 01/23/18 21:50 Intake and Output: 01/23/18 01/24/18 18:59 06:59 Intake Total 520 Balance 520 - Medications Medications: Current Medications Acetaminophen (Tylenol 325mg Tab) 650 mg PO Q4H PRN PRN Reason: Fever >100.4 F Al Hydrox/Mg Hydrox/Simethicone (Maalox Plus 30 Ml) 30 ml PO Q4H PRN PRN Reason: heartburn & indigestion Amlodipine Besylate (Norvasc) 5 mg PO DAILY [facility] Last Admin: 01/23/18 11:47 Dose: 5 mg Docusate Sodium (Colace) 100 mg PO Q12H PRN PRN Reason: Constipation Enoxaparin Sodium (Lovenox) 40 mg SC DAILY [facility] Last Admin: 01/23/18 11:47 Dose: 40 mg Gabapentin (Neurontin) 100 mg PO TID [facility] Last Admin: 01/23/18 17:52 Dose: 100 mg Gemfibrozil (Lopid) 600 mg PO BID [facility] Last Admin: 01/23/18 17:50 Dose: 600 mg Home Med (Meloxicam [Meloxicam]) 15 mg PO DAILY [facility] Levetiracetam (Keppra) 500 mg PO BID [facility] Last Admin: 01/23/18 17:52 Dose: 500 mg Levetiracetam (Keppra) 250 mg PO BID [facility] Last Admin: 01/23/18 17:52 Dose: 250 mg Magnesium Hydroxide (Milk Of Magnesia) 30 ml PO Q24H PRN PRN Reason: Constipation Naproxen (Anaprox Ds) 550 mg PO Q12H PRN PRN Reason: Pain, moderate (4-7) Ondansetron HCl (Zofran Odt) 4 mg PO Q6H PRN PRN Reason: Nausea/Vomiting Oxycodone HCl (Oxycodone Immediate Release Tab) 5 mg PO Q4H PRN PRN Reason: Pain, severe (8-10) Pantoprazole Sodium (Protonix Ec Tab) 40 mg PO DAILY [facility] Last Admin: 01/23/18 11:48 Dose: 40 mg Sertraline HCl (Zoloft) 100 mg PO DAILY [facility] Last Admin: 01/23/18 11:48 Dose: 100 mg - Labs Labs: 01/22/18 15:01 01/22/18 15:01 - Constitutional Appears: Well - Head Exam Head Exam: ATRAUMATIC, NORMAL INSPECTION, NORMOCEPHALIC - Eye Exam Eye Exam: EOMI, Normal appearance, PERRL Pupil Exam: NORMAL ACCOMODATION, PERRL - ENT Exam ENT Exam: Mucous Membranes Moist, Normal Exam - Neck Exam Neck Exam: Full ROM, Normal Inspection. absent: Lymphadenopathy - Respiratory Exam Respiratory Exam: Decreased Breath Sounds - Cardiovascular Exam Cardiovascular Exam: REGULAR RHYTHM, +S1, +S2 - GI/Abdominal Exam GI & Abdominal Exam: Soft, Diminished Bowel Sounds - Rectal Exam Rectal Exam: Deferred
--- NOTE | 2018-01-24 09:40 | CP.PCM.PN ---
Subjective - Date & Time of Evaluation Date of Evaluation: 01/24/18 Time of Evaluation: 10:00 - Subjective Subjective: clinically same Objective - Vital Signs/Intake and Output Vital Signs (last 24 hours): Temp Pulse Resp BP Pulse Ox 97.7 F 77 20 108/72 95 01/24/18 07:45 01/24/18 07:56 01/24/18 07:45 01/24/18 07:45 01/24/18 07:45 - Medications Medications: Current Medications Acetaminophen (Tylenol 325mg Tab) 650 mg PO Q4H PRN PRN Reason: Fever >100.4 F Al Hydrox/Mg Hydrox/Simethicone (Maalox Plus 30 Ml) 30 ml PO Q4H PRN PRN Reason: heartburn & indigestion Amlodipine Besylate (Norvasc) 5 mg PO DAILY [facility] Last Admin: 01/23/18 11:47 Dose: 5 mg Dexamethasone (Decadron) 4 mg PO TID [facility] Stop: 01/28/18 23:59 Docusate Sodium (Colace) 100 mg PO Q12H PRN PRN Reason: Constipation Enoxaparin Sodium (Lovenox) 40 mg SC DAILY [facility] Last Admin: 01/23/18 11:47 Dose: 40 mg Gabapentin (Neurontin) 100 mg PO TID [facility] Last Admin: 01/23/18 17:52 Dose: 100 mg Gemfibrozil (Lopid) 600 mg PO BID [facility] Last Admin: 01/23/18 17:50 Dose: 600 mg Home Med (Meloxicam [Meloxicam]) 15 mg PO DAILY [facility] Levetiracetam (Keppra) 500 mg PO BID [facility] Last Admin: 01/23/18 17:52 Dose: 500 mg Levetiracetam (Keppra) 250 mg PO BID [facility] Last Admin: 01/23/18 17:52 Dose: 250 mg Magnesium Hydroxide (Milk Of Magnesia) 30 ml PO Q24H PRN PRN Reason: Constipation Naproxen (Anaprox Ds) 550 mg PO Q12H PRN PRN Reason: Pain, moderate (4-7) Ondansetron HCl (Zofran Odt) 4 mg PO Q6H PRN PRN Reason: Nausea/Vomiting Oxycodone HCl (Oxycodone Immediate Release Tab) 5 mg PO Q4H PRN PRN Reason: Pain, severe (8-10) Pantoprazole Sodium (Protonix Ec Tab) 40 mg PO DAILY [facility] Last Admin: 01/23/18 11:48 Dose: 40 mg Sertraline HCl (Zoloft) 100 mg PO DAILY [facility] Last Admin: 01/23/18 11:48 Dose: 100 mg - Labs Labs: 01/22/18 15:01 01/22/18 15:01 - Constitutional Appears: Well - Head Exam Head Exam: ATRAUMATIC, NORMAL INSPECTION, NORMOCEPHALIC - Eye Exam Eye Exam: EOMI, Normal appearance, PERRL Pupil Exam: NORMAL ACCOMODATION, PERRL - ENT Exam ENT Exam: Mucous Membranes Moist, Normal Exam - Neck Exam Neck Exam: Full ROM, Normal Inspection. absent: Lymphadenopathy - Respiratory Exam Respiratory Exam: Decreased Breath Sounds - Cardiovascular Exam Cardiovascular Exam: REGULAR RHYTHM, +S1, +S2 - GI/Abdominal Exam GI & Abdominal Exam: Soft, Diminished Bowel Sounds - Rectal Exam Rectal Exam: Deferred
[2018-01-24] MEDS: Enoxaparin 40 mg Syringe SC SCH (10:32)
[2018-01-24] MEDS: Pantoprazole 40 mg EC Tab PO SCH (10:33)
--- NOTE | 2018-01-24 10:55 | PN ---
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 PHYSICAL EXAMINATION: VITAL SIGNS: Blood pressure 120/76, mean arterial pressure 90, respiratory rate 18, temperature 97.9. NEUROLOGIC: The patient is awake, alert complaining of deep seated pain on her left side; however, there are no focal involuntary movements on her left side. Mild left hemiparesis with plantars upgoing on her both sides. MRI of the brain showed postsurgical changes with enhancement over right falx cerebri region with vasogenic edema with dural tail. This radiological finding consistent with meningioma. 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 RECOMMENDATION: The patient is placed on Decadron for vasogenic edema and her pain for three to four days. The patient should have a followup MRI in near future if symptoms are persistent. The patient will also benefit doing a PET scan to rule in or out metastatic process. Her electroencephalogram is reviewed. Bilateral slow activities without any focal slowing versus paroxysmal activities. Continue Keppra 750 mg twice a day as scheduled. Paul Lornezo MD
[2018-01-24 14:49] LABS: HEMOGLOBIN 12.9 g/dL (11.0-16.0); MEAN CELL VOLUME 84.6 fL (81.0-99.0); MEAN CORPUSCULAR HEMOGLOBIN 28.8 pg (27.0-31.0); MEAN PLATELET VOLUME 7.8 fL (7.2-11.7); RBC 4.47 Mil/uL (3.80-5.20); RED CELL DISTRIBUTION WIDTH 14.7 % (11.5-14.5)
[2018-01-24 14:54] LABS: WHITE BLOOD COUNT 7.8 K/uL (4.8-10.8)
[2018-01-24 15:06] LABS: BLOOD UREA NITROGEN 17 mg/dL (7-17); CALCIUM 9.5 mg/dl (8.6-10.4); GFR AFRICAN-AMERICAN > 60; GFR NON-AFRICAN AMERICAN > 60
--- NOTE | 2018-01-24 16:05 | CP.PCM.PN ---
Subjective - Date & Time of Evaluation Date of Evaluation: 01/24/18 Time of Evaluation: 15:58 - Subjective Subjective: PT SEEN BY DR. COTTER THIS MORNING, RECOMMENDATIONS NOTED IN PROGRESS NOTE. REPEAT LABS DONE TODAY; SEE OFFICIAL RESULTS (LEUKOCYSTOSIS RESOLVED). [employer] DISCUSSED PLAN WITH DR. COTTER AND OK TO D/C BACK TO [facility] TODAY; NEEDS DECADRON 4 MG PO TID UNTIL 01/28/18; ALSO NEEDS PET SCAN AND REPEAT HEAD CT/MRI WHICH DR. RIVERA WILL ORDER FROM [facility] AND FOLLOW UP WITH RESULTS. PT INSTRUCTED TO CONTINUE SEIZURE MEDICATIONS ORDERED; PT ADMITTED THAT SHE REFUSES DOSES AT [facility]. ALSO TO BE NOTED, PT HAS NOT FOLLOWED UP WITH THE NEUROSURGEON FROM [place], DR. ARRIAGA, SINCE SHE WAS D/C FROM THEIR ( SURGERY WAS ON 08/24/17). PER PT AND DAUGHTER THEY WERE NEVER GIVEN F/U INSTRUCTIONS FROM [facility]. OK TO D/C PER DR. Azam RIVERA AND HE WILL CONTINUE TO CARE FOR THE PT AT [facility]. PT'S DAUGHTER KACIE MADE AWARE OF THE RESULTS AND PLAN FOR D./C. SHE AND THE PT ARE IN AGREEMENT. SW TO ARRANGE TRANSPORTATION. D/C PLAN: -PLACE UNDER THE SERVICE OF DR. Radha RIVERA WHILE AT [facility]---CALL UPON ARRIVAL FOR ADMITTING ORDERS. -CONTINUE MEDICATIONS PER THE MED REC FORM--CHANGES CAN BE MADE BY DR. RIVERA. -CONTINUE DECADRON 4MG PO THREE TIMES/DAY FOR 4 DAYS---STARTED ON 01/24/18 AND THE LAST DOSE TO BE GIVEN DURING THE EVENING OF 01/28/18. -IF MRS. BARRERA CONTINUES TO REFUSE SEIZURE MEDS, PLEASE NOTIFY DR. RIVERA. -PER DR. COTTER (NEUROLOGIST) MRS. BARRERA NEEDS TO HAVE A REPEAT CT SCAN OF THE HEAD AND PET SCAN. DR. RIVERA WILL ORDER THIS AND FOLLOW UP WITH THE RESULTS. -IF YOU HAVE ANY FURTHER QUESTIONS OR CONCERNS, CONTACT DR. RIVERA'S OFFICE. Objective - Vital Signs/Intake and Output Vital Signs (last 24 hours): Temp Pulse Resp BP Pulse Ox 97.7 F 86 20 108/72 95 01/24/18 07:45 01/24/18 12:00 01/24/18 07:45 01/24/18 07:45 01/24/18 07:45 Intake and Output: 01/24/18 01/24/18 06:59 18:59 Intake Total 300 Balance 300 - Medications Medications: Current Medications Acetaminophen (Tylenol 325mg Tab) 650 mg PO Q4H PRN PRN Reason: Fever >100.4 F Al Hydrox/Mg Hydrox/Simethicone (Maalox Plus 30 Ml) 30 ml PO Q4H PRN PRN Reason: heartburn & indigestion Amlodipine Besylate (Norvasc) 5 mg PO DAILY [facility] Last Admin: 01/24/18 10:34 Dose: 5 mg Dexamethasone (Decadron) 4 mg PO TID [facility] Stop: 01/28/18 23:59 Last Admin: 01/24/18 13:57 Dose: 4 mg Docusate Sodium (Colace) 100 mg PO Q12H PRN PRN Reason: Constipation Enoxaparin Sodium (Lovenox) 40 mg SC DAILY [facility] Last Admin: 01/24/18 10:32 Dose: 40 mg Gabapentin (Neurontin) 100 mg PO TID [facility] Last Admin: 01/24/18 13:57 Dose: 100 mg Gemfibrozil (Lopid) 600 mg PO BID [facility] Last Admin: 01/24/18 10:33 Dose: 600 mg Levetiracetam (Keppra) 500 mg PO BID [facility] Last Admin: 01/24/18 10:33 Dose: 500 mg Levetiracetam (Keppra) 250 mg PO BID [facility] Last Admin: 01/24/18 10:33 Dose: 250 mg Magnesium Hydroxide (Milk Of Magnesia) 30 ml PO Q24H PRN PRN Reason: Constipation Naproxen (Anaprox Ds) 550 mg PO Q12H PRN PRN Reason: Pain, moderate (4-7) Ondansetron HCl (Zofran Odt) 4 mg PO Q6H PRN PRN Reason: Nausea/Vomiting Oxycodone HCl (Oxycodone Immediate Release Tab) 5 mg PO Q4H PRN PRN Reason: Pain, severe (8-10) Pantoprazole Sodium (Protonix Ec Tab) 40 mg PO DAILY [facility] Last Admin: 01/24/18 10:33 Dose: 40 mg Sertraline HCl (Zoloft) 100 mg PO DAILY [facility] Last Admin: 01/24/18 10:32 Dose: 100 mg - Labs Labs: 01/24/18 14:44 01/24/18 14:44
[2018-01-25] MEDS: Pantoprazole 40 mg EC Tab PO SCH (10:19)
[2018-01-25] MEDS: Enoxaparin 40 mg Syringe SC SCH (10:21)
--- NOTE | 2018-01-25 11:33 | CP.PCM.PN ---
Subjective - Date & Time of Evaluation Date of Evaluation: 01/25/18 Time of Evaluation: 09:40 - Subjective Subjective: clinically same Objective - Vital Signs/Intake and Output Vital Signs (last 24 hours): Temp Pulse Resp BP Pulse Ox 97.8 F 79 20 125/78 98 01/25/18 07:42 01/25/18 07:42 01/25/18 07:42 01/25/18 07:42 01/25/18 07:42 - Medications Medications: Current Medications Acetaminophen (Tylenol 325mg Tab) 650 mg PO Q4H PRN PRN Reason: Fever >100.4 F Al Hydrox/Mg Hydrox/Simethicone (Maalox Plus 30 Ml) 30 ml PO Q4H PRN PRN Reason: heartburn & indigestion Amlodipine Besylate (Norvasc) 5 mg PO DAILY [facility] Last Admin: 01/25/18 10:19 Dose: 5 mg Dexamethasone (Decadron) 4 mg PO TID [facility] Stop: 01/28/18 23:59 Last Admin: 01/25/18 10:21 Dose: 4 mg Docusate Sodium (Colace) 100 mg PO Q12H PRN PRN Reason: Constipation Enoxaparin Sodium (Lovenox) 40 mg SC DAILY [facility] Last Admin: 01/25/18 10:21 Dose: 40 mg Gabapentin (Neurontin) 100 mg PO TID [facility] Last Admin: 01/25/18 10:19 Dose: 100 mg Gemfibrozil (Lopid) 600 mg PO BID [facility] Last Admin: 01/25/18 10:19 Dose: 600 mg Levetiracetam (Keppra) 500 mg PO BID [facility] Last Admin: 01/25/18 10:19 Dose: 500 mg Levetiracetam (Keppra) 250 mg PO BID [facility] Last Admin: 01/25/18 10:20 Dose: 250 mg Magnesium Hydroxide (Milk Of Magnesia) 30 ml PO Q24H PRN PRN Reason: Constipation Naproxen (Anaprox Ds) 550 mg PO Q12H PRN PRN Reason: Pain, moderate (4-7) Ondansetron HCl (Zofran Odt) 4 mg PO Q6H PRN PRN Reason: Nausea/Vomiting Oxycodone HCl (Oxycodone Immediate Release Tab) 5 mg PO Q4H PRN PRN Reason: Pain, severe (8-10) Pantoprazole Sodium (Protonix Ec Tab) 40 mg PO DAILY [facility] Last Admin: 01/25/18 10:19 Dose: 40 mg Sertraline HCl (Zoloft) 100 mg PO DAILY [facility] Last Admin: 01/25/18 10:20 Dose: 100 mg - Labs Labs: 01/24/18 14:44 01/24/18 14:44 - Constitutional Appears: Well - Head Exam Head Exam: ATRAUMATIC, NORMAL INSPECTION, NORMOCEPHALIC - Eye Exam Eye Exam: EOMI, Normal appearance, PERRL Pupil Exam: NORMAL ACCOMODATION, PERRL - ENT Exam ENT Exam: Mucous Membranes Moist, Normal Exam - Neck Exam Neck Exam: Full ROM, Normal Inspection. absent: Lymphadenopathy - Respiratory Exam Respiratory Exam: Decreased Breath Sounds - Cardiovascular Exam Cardiovascular Exam: REGULAR RHYTHM, +S1, +S2 - GI/Abdominal Exam GI & Abdominal Exam: Soft, Diminished Bowel Sounds - Rectal Exam Rectal Exam: Deferred Assessment and Plan (1) Cerebral edema Status: Acute - Assessment and Plan (Free Text) Plan: Patient with the tumor Patient is known to the neurology Patient also has a cerebral edema Started on Keppra Patient is now going to be compliant with the medication as patient was refusing the medication patient is told that she has a brain mass and needs the medications patient now agrees and understand it
--- NOTE | 2018-01-25 11:42 | EEG ---
DATE: 01/23/2018 This is a 16-channel electroencephalogram of awake and drowsy adult. During the study, photic stimulation was performed. Hyperventilation was not performed. The resting electroencephalogram shows 3 to 4 Hz low amplitude delta activity superimposed with fast 16 to 18 Hz low amplitude delta activity seen at parietal and occipital leads. Later, there are some loose electrode artifacts contaminating whole left cortical leads. Later, this was also corrected back to low hertz activities noted in bilateral cortical leads. The photic stimulation did not evoke any response noted at 2 to 20 Hz. IMPRESSION: This is an abnormal electroencephalogram because of persistent slowing throughout the records suggestive of bilateral cerebral dysfunction. This is probably secondary to metabolic, vascular, or degenerative process. During the study, neither electroencephalographic paroxysmal activities nor focal slowing noted. Paul Lorenzo MD
[2018-01-26 07:52] VITALS: BP 127/82; PULSE 73; RESP 20; TEMP 98.1; O2SAT 98
[2018-01-26] MEDS: Enoxaparin 40 mg Syringe SC SCH (09:57)
[2018-01-26] MEDS: Pantoprazole 40 mg EC Tab PO SCH (09:57)
== END 2018-01-26 12:53 | DRG 100 ==
LOC: C.ER 14:47 → C.9E 15:54 → C.5S 18:30
PROVIDERS: ADMIT Internal Medicine Nephrology; ATTEND Internal Medicine Nephrology
DX: G40.109 Localization-related (focal) (partial) symptomatic epilepsy and epileptic syndromes with simple partial seizures, not intractable, without status epilepticus (principal); G93.6 Cerebral edema; G81.94 Hemiplegia, unspecified affecting left nondominant side; I10 Essential (primary) hypertension; J44.9 Chronic obstructive pulmonary disease, unspecified; K21.0 Gastro-esophageal reflux disease with esophagitis; D32.0 Benign neoplasm of cerebral meninges; E05.90 Thyrotoxicosis, unspecified without thyrotoxic crisis or storm; K59.00 Constipation, unspecified; Z85.118 Personal history of other malignant neoplasm of bronchus and lung; Z95.5 Presence of coronary angioplasty implant and graft; Z86.73 Personal history of transient ischemic attack (TIA), and cerebral infarction without residual deficits; Z91.013 Allergy to seafood; Z88.8 Allergy status to other drugs, medicaments and biological substances; Z88.0 Allergy status to penicillin; Z88.2 Allergy status to sulfonamides; F17.210 Nicotine dependence, cigarettes, uncomplicated; Z92.21 Personal history of antineoplastic chemotherapy; Z92.3 Personal history of irradiation

== ENCOUNTER 2018-04-10 18:53 | Inpatient (IN) | payer MEDICARE, MEDICAID ==
[2018-04-10 18:53] VITALS: BMI 28.3
[2018-04-10] MEDS ORDERED: Sodium Chloride 0.9% 1,000 ML IV ONE (19:29)
--- NOTE | 2018-04-10 19:45 | C.PDOC ---
History Of Present Illness 67 year old female sent from long-term for a complaint of generalized weakness and having an unsteady gait despite using a walker. Patient has a Hx of seizures with brain tumor and prior CVA. Denies fever or chills. Chief Complaint (Nursing): Weakness/Neurological Deficit History Per: Patient History/Exam Limitations: no limitations Onset/Duration Of Symptoms: Hrs Current Symptoms Are (Timing): Still Present Seizure Or Post-ictal Symptoms: None Possible Causative Factor(s): Other (Not known) Fall Associated With With Symptoms: No Recent travel outside of the [place]: No Past Medical History Reviewed: Historical Data, Nursing Documentation, Vital Signs Vital Signs: Last Vital Signs Temp 98.4 F 04/10/18 19:00 Pulse 88 04/10/18 19:00 Resp 16 04/10/18 19:00 BP 133/83 04/10/18 19:00 Pulse Ox 96 04/10/18 19:52 - Medical History PMH: COPD, CVA, HTN, Hyperthyroidism Denies: Depression (PRESENTLY DEPRESSED) Surgical History: Coronary Stent - [facility] ENDOSCOPIC BRONCHIAL BX (01/07/15) RESP TRACT INTUBAT NEC (01/07/15) Family History: States: Unknown Family Hx - Social History Hx Tobacco Use: Yes Hx Alcohol Use: No Hx Substance Use: No - Immunization History Hx Tetanus Toxoid Vaccination: No Hx Influenza Vaccination: No Hx Pneumococcal Vaccination: No Review Of Systems Constitutional: Positive for: Weakness, Other (Unsteady gait). Negative for: Fever, Chills Cardiovascular: Negative for: Chest Pain, Palpitations Respiratory: Negative for: Cough, Shortness of Breath Gastrointestinal: Negative for: Nausea, Vomiting, Abdominal Pain Musculoskeletal: Negative for: Neck Pain, Back Pain, Leg Pain Neurological: Negative for: Weakness, Numbness Physical Exam - Physical Exam Appears: Non-toxic Skin: Normal Color, Warm, Dry Head: Atraumatic, Normacephalic Eye(s): bilateral: Normal Inspection Oral Mucosa: Moist Neck: Normal, Supple Chest: Symmetrical, No Tenderness Cardiovascular: Rhythm Regular Respiratory: Normal Breath Sounds, No Rales, No Rhonchi, No Wheezing Gastrointestinal/Abdominal: Soft, No Tenderness Back: No Vertebral Tenderness, No Paraspinal Tenderness Extremity: No Tenderness, Capillary Refill (<2 seconds), No Deformity, No Swelling Pulses: Left Radial: Normal, Right Radial: Normal, Left Dorsalis Pedis: Normal, Right Dorsalis Pedis: Normal Neurological/Psych: Oriented x3, Normal Speech, Other (Generalized weakness to all extremities, no focal deficits) Gait: Unable To Assess ED Course And Treatment - Laboratory Results Result Diagrams: 04/10/18 19:52 04/10/18 19:52 ECG: Interpreted By Me, Viewed By Me ECG Rhythm: Sinus Rhythm ECG Interpretation: Normal Interpretation Of ECG: NSR, normal tracings. Rate From EC O2 Sat by Pulse Oximetry: 96 (Room air) Pulse Ox Interpretation: Normal Progress Note: CT head, EKG, and blood work ordered. IV fluids administered. Disposition Discussed With Dr.: Eddie Molina Doctor Will See Patient In The: Hospital Counseled Patient/Family Regarding: Diagnosis - Disposition Disposition: HOSPITALIZED Disposition Time: 00:52 Condition: STABLE Forms: [facility] (Yoruba) - Clinical Impression Clinical Impression: Mass of cerebral hemisphere - Scribe Statement The provider has reviewed the documentation as recorded by the Scribroly Donald All medical record entries made by the Scribe were at my direction and personally dictated by me. I have reviewed the chart and agree that the record accurately reflects my personal performance of the history, physical exam, medical decision making, and the department course for this patient. I have also personally directed, reviewed, and agree with the discharge instructions and disposition.
[2018-04-10 19:55] LABS: BASO # 0.1 K/uL (0.0-0.2); BASO % 0.8 % (0.0-2.0); EOS % 0.3 % (0.0-4.0); LYMPH # 1.3 K/uL (1.0-4.3); LYMPH % 10.3 % (20.0-40.0); MEAN CELL VOLUME 84.6 fL (81.0-99.0); MEAN CORPUSCULAR HEMOGLOBIN 28.7 pg (27.0-31.0); MEAN CORPUSCULAR HGB CONC 33.9 g/dL (33.0-37.0); MONO # 0.3 K/uL (0.0-0.8); MONO % 2.4 % (0.0-10.0); NEUT # 10.8 K/uL (1.8-7.0); NEUT % 86.2 % (50.0-75.0); RBC 4.53 Mil/uL (3.80-5.20); RED CELL DISTRIBUTION WIDTH 14.7 % (11.5-14.5); WHITE BLOOD COUNT 12.6 K/uL (4.8-10.8)
[2018-04-10 20:13] LABS: ALB/GLOB RATIO 1.3 (1.0-2.1); ALBUMIN 4.2 g/dL (3.5-5.0); ALT/SGPT 21 U/L (9-52); AST/SGOT 21 U/L (14-36); BLOOD UREA NITROGEN 22 mg/dL (7-17); CALCIUM 9.9 mg/dl (8.6-10.4); GFR AFRICAN-AMERICAN > 60; GFR NON-AFRICAN AMERICAN > 60
[2018-04-10 20:35] LABS: T4 5.92 ug/dL (5.5-11.0)
[2018-04-10 20:52] LABS: T3 1.38 nmol/L (1.49-2.60)
[2018-04-11 02:41] VITALS: RESP 20
[2018-04-11] MEDS ORDERED: oxyCODONE 5 mg Immediate Release Tab PO PRN (02:53)
[2018-04-11] MEDS ORDERED: Alum-Mag Hydrox-Simethicone Susp (30 mL) PO PRN (02:53)
[2018-04-11] MEDS ORDERED: Magnesium Hydroxide Susp 30 ml UD PO PRN (02:53)
--- NOTE | 2018-04-11 08:42 | CT ---
PROCEDURE: CT HEAD WITHOUT CONTRAST. HISTORY: Headache COMPARISON: None available. TECHNIQUE: Axial computed tomography images were obtained through the head/brain without intravenous contrast. Radiation dose: Total exam DLP = 03/08/2018 mGy-cm. This CT exam was performed using one or more of the following dose reduction techniques: Automated exposure control, adjustment of the mA and/or kV according to patient size, and/or use of iterative reconstruction technique. FINDINGS: HEMORRHAGE: No intracranial hemorrhage. BRAIN: High medial right frontal mass with central low attenuation suggesting possible central necrosis. The mass measures roughly 2.7 cm in diameter. It is situated along the falx cerebri. There is extensive surrounding vasogenic edema, increased compared to the prior examination. There is subtle midline shift by approximately 2-3 mm. There is mass effect upon the frontal horn and body of the right lateral ventricle no other mass is identified. There is a small right cerebellar hemispheric infarct. VENTRICLES: Unremarkable. No hydrocephalus. CALVARIUM: Status post high right frontal craniotomy. PARANASAL SINUSES: Unremarkable as visualized. No significant inflammatory changes. MASTOID AIR CELLS: Nonspecific minimal right mastoid effusion, new since prior. OTHER FINDINGS: None. IMPRESSION: High right frontal neoplasm with increased extensive surrounding vasogenic edema. Minimal midline shift. Mass-effect upon the right lateral ventricle. Status post right frontal craniotomy. Old right cerebellar hemispheric infarct.
[2018-04-11] MEDS ORDERED: Sodium Chloride Nasal 0.65% Soln (30ml) NAS PRN (09:00)
[2018-04-11] MEDS ORDERED: Home Med 1 UNIT (Meloxicam [Meloxicam] 15 MG) PO SCH (10:00)
[2018-04-11] MEDS ORDERED: Enoxaparin 40 mg Syringe SC SCH (10:00)
--- NOTE | 2018-04-11 10:28 | RAD ---
PROCEDURE: CHEST RADIOGRAPH, 1 VIEW HISTORY: weakness COMPARISON: Portable chest 01/22/2018. FINDINGS: LUNGS: No acute pulmonary disease appreciated bilaterally. Small granuloma or possible varix again seen left upper lung zone, unchanged, dating back at least to prior chest radiograph dated 12/28/2014. PLEURA: No pneumothorax or pleural fluid seen. CARDIOVASCULAR: Normal. OSSEOUS STRUCTURES: No significant abnormalities. VISUALIZED UPPER ABDOMEN: Normal. OTHER FINDINGS: None. IMPRESSION: No interval acute cardiopulmonary disease appreciated.
[2018-04-11 12:22] LABS: FREE T4 0.86 ng/dL (0.78-2.19)
[2018-04-11 12:31] LABS: PROLACTIN 15.3 ng/mL (3.0-18.9)
--- NOTE | 2018-04-11 14:44 | VASCLAB ---
PROCEDURE: HISTORY: Unsteady gait COMPARISON: None available. TECHNIQUE: Grayscale and duplex Doppler evaluation of the cervical carotid and vertebral arteries were performed. The common carotid, carotid bifurcations and cervical Internal Carotid Artery (ICA) and proximal External Carotid Artery (ECA) were evaluated. The vertebral arteries were evaluated for gross patency and flow direction. Report prepared by PATRICIA Flowers FINDINGS: RIGHT CAROTID ARTERIES: 1. Common Carotid Artery: No significant focal plaque formation of the right common carotid artery. Maximum Peak Systolic velocity: 108 cm/sec: End-diastolic velocity 24 cm/sec. 2. Carotid Bifurcation: Calcific plaque formation. Maximum Peak Systolic velocity: 49 cm/sec: End-diastolic velocity 18 cm/sec. 3. Internal Carotid Artery: Plaque description: Calcific 3.1. Proximal Segment: Peak systolic velocity 48 cm/sec: End-diastolic velocity 15 cm/sec - % stenosis 0-15% 3.2. Middle Segment: Peak systolic velocity 85 cm/sec: End-diastolic velocity 31 cm/sec - % stenosis 0-15% 3.3. Distal Segment: Peak systolic velocity 73 cm/sec: End-diastolic velocity 29 cm/sec - % stenosis 0-15% 4. External Carotid Artery: No significant focal plaque formation. Peak systolic velocity 70 cm/sec 5. ICA/CCA Ratio: 1.4 LEFT CAROTID ARTERIES: 1. Common Carotid Artery: No significant focal plaque formation of the left common carotid artery. Maximum Peak Systolic velocity: 84 cm/sec: End-diastolic velocity 21 cm/sec. 2. Carotid Bifurcation: plaque formation. Maximum Peak Systolic velocity: 43 cm/sec: End-diastolic velocity 14 cm/sec. 3. Internal Carotid Artery: Plaque description: 3.1. Proximal Segment: Peak systolic velocity 73 cm/sec: End-diastolic velocity 19 cm/sec - % stenosis 0-15% 3.2. Middle Segment: Peak systolic velocity 95 cm/sec: End-diastolic velocity 35 cm/sec - % stenosis 0-15% 3.3. Distal Segment: Peak systolic velocity 96 cm/sec: End-diastolic velocity 28 cm/sec - % stenosis 0-15% 4. External Carotid Artery: No significant focal plaque formation. Peak systolic velocity 61 cm/sec 5. ICA/CCA Ratio: 1.3 VERTEBRAL ARTERIES: 1. Right Vertebral Artery: The right vertebral artery flow direction is antegrade. 2. Left Vertebral Artery: The left vertebral artery flow direction is antegrade. OTHER FINDINGS: IMPRESSION: RIGHT: Duplex scan does not suggest hemodynamically significant stenosis of the right extracranial carotid arteries. Tortuous right ICA. LEFT: Duplex scan does not suggest hemodynamically significant stenosis of the left extracranial carotid arteries.
--- NOTE | 2018-04-11 16:31 | MRI ---
PROCEDURE: MRI BRAIN WITHOUT CONTRAST HISTORY: Mass COMPARISON: None. TECHNIQUE: Multiplanar, multisequence MR images of the brain were obtained without intravenous contrast enhancement. FINDINGS: HEMORRHAGE: No evidence of acute parenchymal, subarachnoid nor extra-axial hemorrhage. Questionable small amount of hemosiderin the right posterior superior convexity adjacent to a metastatic lesion subjacent to craniotomy defect. Susceptibility artifact is also seen the vertex related to craniotomy hardware. DWI: No evidence of an acute or early subacute infarction seen on diffusion imaging. BRAIN PARENCHYMA: Current study re- demonstrates elliptical shaped mass lesion in the right parasagittal superior frontal region bordering the interhemispheric fissure which measures approximately 3.2 x 1.9 cm in AP and transverse dimension presumably representing a metastatic deposit. . Significant surrounding vasogenic white matter edema within the right frontal and parietal white matter extends inferiorly into the edgar radiata as well as superior basal ganglia. Edema exerts considerable mass effect with compression and inferior displacement of the right lateral ventricle as well as overlying sulcal effacement. No other definitive metastatic lesions are identified. Mild chronic periventricular white matter ischemic changes seen in the left cerebral hemisphere with scattered more discrete chronic appearing lacunar type infarcts deep and subcortical white matter. Few tiny chronic lacunar-type infarcts seen in the right frontal lobe white matter and brain stem. . Large chronic infarct right cerebellum unchanged. None of these changes exhibit restricted diffusion. Moderate generalized volume loss, not withstanding the aforementioned mass-effect. VENTRICLES: No obstructive hydrocephalus. CRANIUM: As above ORBITS: Orbits and contents unremarkable PARANASAL SINUSES/MASTOIDS: Clear VASCULAR SYSTEM: Visualized major vascular flow voids at skull base patent. OTHER FINDINGS: None. IMPRESSION: There is a elliptical shaped of right parasagittal superior frontoparietal region bordering the interhemispheric fissure epicenter of which is likely at the corticomedullary junction. This lesion which may represent a metastatic deposit is associated with a significant amount of surrounding vasogenic white matter edema seen within the frontal and parietal lobes extending inferiorly into the edgar radiata and superior posterior lateral basal ganglia. The lesion exerts considerable mass effect with compression and inferior displacement of right lateral ventricle and overlying sulcal effacement right cerebral hemisphere. Chronic appearing white matter as well as brainstem and right cerebellar ischemic changes as above. Moderate generalized volume loss.
--- NOTE | 2018-04-11 20:06 | CP.PCM.HP ---
Past Patient History - Infectious Disease Hx of Infectious Diseases: None - Tetanus Immunizations Tetanus Immunization: Unknown - Past Medical History & Family History Past Medical History?: Yes - Past Social History Smoking Status: Current Some Days Smoker - CARDIAC Hx Cardiac Disorders: Yes Hx Hypertension: Yes - PULMONARY Hx Chronic Obstructive Pulmonary Disease (COPD): Yes - NEUROLOGICAL HX Cerebrovascular Accident: Yes (2014) - HEENT Hx HEENT Problems: Yes Other/Comment: wears eyeglasses - RENAL Hx Chronic Kidney Disease: No - ENDOCRINE/METABOLIC Hx Endocrine Disorders: Yes Hx Hyperthyroidism: Yes - HEMATOLOGICAL/ONCOLOGICAL Hx Blood Disorders: No Hx Blood Transfusions: No Hx Cancer: Yes (small cell lung cancer 2014) Hx Chemotherapy: Yes (plus radiation) - INTEGUMENTARY Hx Dermatological Problems: No - MUSCULOSKELETAL/RHEUMATOLOGICAL Hx Musculoskeletal Disorders: Yes Hx Falls: Yes Hx Unsteady Gait: Yes - GASTROINTESTINAL Hx Gastrointestinal Disorders: Yes Hx Constipation: Yes Hx Gastroesophageal Reflux: Yes (w/ esophagitis) - GENITOURINARY/GYNECOLOGICAL Hx Genitourinary Disorders: No - PSYCHIATRIC Hx Psychophysiologic Disorder: Yes Hx Depression: No (PRESENTLY DEPRESSED) Hx Substance Use: No - SURGICAL HISTORY Hx Surgeries: Yes Hx Coronary Stent: Yes - ANESTHESIA Hx Anesthesia: Yes Hx Anesthesia Reactions: No Hx Malignant Hyperthermia: No Has any member of the family had a problem w/ anesthesia?: No Meds Allergies/Adverse Reactions: Allergies Allergy/AdvReac Type Severity Reaction Status Date / Time FISH Allergy Verified 01/22/18 15:10 iodine Allergy Verified 01/22/18 15:10 iron Allergy Verified 01/22/18 15:10 Penicillins Allergy Verified 01/22/18 15:10 Sulfa (Sulfonamide Allergy Verified 01/22/18 15:10 Antibiotics) seafood Allergy Uncoded 08/11/17 18:53 Physical Exam - Constitutional Appears: Well - Head Exam Head Exam: ATRAUMATIC, NORMAL INSPECTION, NORMOCEPHALIC - Eye Exam Eye Exam: EOMI, Normal appearance, PERRL Pupil Exam: NORMAL ACCOMODATION, PERRL - ENT Exam ENT Exam: Mucous Membranes Moist, Normal Exam - Neck Exam Neck exam: Positive for: Normal Inspection - Respiratory Exam Respiratory Exam: Decreased Breath Sounds - Cardiovascular Exam Cardiovascular Exam: REGULAR RHYTHM, +S1, +S2 - GI/Abdominal Exam GI & Abdominal Exam: Diminished Bowel Sounds, Soft - Rectal Exam Rectal Exam: Deferred Results - Vital Signs Recent Vital Signs: Last Vital Signs Temp 98.7 F 04/11/18 16:39 Pulse 97 H 04/11/18 16:39 Resp 20 04/11/18 16:39 BP 117/78 04/11/18 16:39 Pulse Ox 95 04/11/18 16:39 - Labs Result Diagrams: 04/10/18 19:52 04/10/18 19:52 Labs: Laboratory Results - last 24 hr 04/10/18 04/11/18 04/11/18 19:52 11:09 11:09 ESR 32 H Sodium 139 Potassium 4.0 Chloride 98 Carbon Dioxide 25 Anion Gap 20 BUN 22 H Creatinine 0.8 Est GFR ( Amer) > 60 Est GFR (Non-Af Amer) > 60 Random Glucose 251 H Hemoglobin A1c Calcium 9.9 Total Bilirubin 0.5 AST 21 ALT 21 Alkaline Phosphatase 69 C-Reactive Protein 6.30 Total Protein 7.3 Albumin 4.2 Globulin 3.1 Albumin/Globulin Ratio 1.3 Free T4 Thyroxine (T4) 5.92 Total T3 1.38 L TSH 3rd Generation Prolactin 15.3 04/11/18 04/11/18 11:09 11:09 ESR Sodium Potassium Chloride Carbon Dioxide Anion Gap BUN Creatinine Est GFR ( Amer) Est GFR (Non-Af Amer) Random Glucose Hemoglobin A1c 6.8 H Calcium Total Bilirubin AST ALT Alkaline Phosphatase C-Reactive Protein Total Protein Albumin Globulin Albumin/Globulin Ratio Free T4 0.86 Thyroxine (T4) Total T3 TSH 3rd Generation 0.12 L Prolactin
[2018-04-11] MEDS ORDERED: MELATONIN PO SCH (22:00)
[2018-04-11] MEDS ORDERED: PYRIDOXINE HCL PO SCH (22:00)
--- NOTE | 2018-04-11 23:01 | CARD ---
APPROVED REPORT EKG Measurement Heart [id number] <Conclusion> Normal sinus rhythm Normal ECG
--- NOTE | 2018-04-12 07:47 | CP.PCM.PN ---
Subjective - Date & Time of Evaluation Date of Evaluation: 04/12/18 Time of Evaluation: 08:00 - Subjective Subjective: PGY 3 medicine progress note for Dr. Azam Molina: Patient was seen and examined at bedside this morning. She stated that she came to the hospital yesterday for weakness of the left side of her arm which has been going on for 2 weeks. 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 He is currently following up with her outpatient heme/onc and has completed chemo. She had radiation once at [facility] but says she will not have any more due to claustrophobia. Her next outpatient follow up is on April 23. She also follows up with Dr. Lorenzo outpatient. She reports that she feels better than yesterday but her arm is still weak. She states that Dr. Lorenzo came by and told her that her brain mass is causing a lot of inflammation making her weak. She otherwise denied fever/chills, headaches, change in vision , Chest pain, palpitations, SOB, abd pain. She states she needs help with ADLs and is a current resident of [place] [facility]. She also reports that she feels very constipation and has not had a BM since last Monday. She is requesting an enema. Objective - Vital Signs/Intake and Output Vital Signs (last 24 hours): Temp Pulse Resp BP Pulse Ox 97.8 F 78 20 136/83 96 04/12/18 00:15 04/12/18 00:15 04/12/18 00:15 04/12/18 00:15 04/12/18 00:15 Intake and Output: 04/12/18 04/12/18 06:59 18:59 Intake Total 250 Balance 250 - Medications Medications: Current Medications Acetaminophen (Tylenol 325mg Tab) 650 mg PO Q4H PRN PRN Reason: Fever >100.4 F Al Hydrox/Mg Hydrox/Simethicone (Maalox Plus 30 Ml) 30 ml PO Q4H PRN PRN Reason: heartburn & indigestion Amlodipine Besylate (Norvasc) 5 mg PO DAILY [facility] Last Admin: 04/11/18 10:40 Dose: 5 mg Dexamethasone (Decadron) 4 mg PO TID [facility] Last Admin: 04/11/18 17:40 Dose: 4 mg Docusate Sodium (Colace) 100 mg PO Q12H PRN PRN Reason: Constipation Last Admin: 04/11/18 10:40 Dose: 100 mg Gabapentin (Neurontin) 100 mg PO TID [facility] Last Admin: 04/11/18 17:40 Dose: 100 mg Gemfibrozil (Lopid) 600 mg PO BID [facility] Last Admin: 04/11/18 17:40 Dose: 600 mg Levetiracetam (Keppra) 1,000 mg PO BID [facility] Last Admin: 04/11/18 17:40 Dose: 1,000 mg Lorazepam (Ativan) 1 mg IVP ONCE PRN PRN Reason: to be given prior to mri Last Admin: 04/11/18 13:53 Dose: 1 mg Magnesium Hydroxide (Milk Of Magnesia) 30 ml PO Q24H PRN PRN Reason: Constipation Naproxen (Anaprox Ds) 550 mg PO Q12H PRN PRN Reason: Pain, moderate (4-7) Ondansetron HCl (Zofran Odt) 4 mg PO Q6H PRN PRN Reason: Nausea/Vomiting Oxycodone HCl (Oxycodone Immediate Release Tab) 5 mg PO Q4H PRN PRN Reason: Pain, severe (8-10) Pantoprazole Sodium (Protonix Inj) 40 mg IVP DAILY [facility] Last Admin: 04/11/18 10:46 Dose: 40 mg Pneumococcal Polyvalent Vaccine (Pneumovax 23 Vaccine) 0.5 ml IM .ONCE ONE Stop: 04/13/18 10:01 Sertraline HCl (Zoloft) 25 mg PO DAILY [facility] Last Admin: 04/11/18 10:40 Dose: 25 mg Sertraline HCl (Zoloft) 100 mg PO DAILY [facility] Last Admin: 04/11/18 10:40 Dose: 100 mg Sodium Chloride ([place] Baby Saline 30 Ml) 1 ml NEEL PRN PRN PRN Reason: Nasal congestion - Labs Labs: 04/10/18 19:52 04/10/18 19:52 - Constitutional Appears: Non-toxic, No Acute Distress, Chronically Ill - Head Exam Head Exam: NORMAL INSPECTION - Eye Exam Eye Exam: EOMI - ENT Exam ENT Exam: Mucous Membranes Moist - Respiratory Exam Respiratory Exam: Decreased Breath Sounds, Clear to Ausculation Bilateral, NORMAL BREATHING PATTERN. absent: Respiratory Distress - Cardiovascular Exam Cardiovascular Exam: REGULAR RHYTHM, +S1, +S2 - GI/Abdominal Exam GI & Abdominal Exam: Soft, Normal Bowel Sounds. absent: Distended, Firm, Guarding, Tenderness - Extremities Exam Extremities Exam: Normal Inspection - Back Exam Back Exam: NORMAL INSPECTION - Neurological Exam Neurological Exam: Alert, Awake, Oriented x3 Neuro motor strength exam: Left Upper Extremity: 3, Right Upper Extremity: 4, Left Lower Extremity: 4, Right Lower Extremity: 4 - Psychiatric Exam Psychiatric exam: Normal Affect, Normal Mood Assessment and Plan - Assessment and Plan (Free Text) Assessment: Brain Tumor Dr. Lorenzo consulted - f/u recs Decadron 4mg PO TID Tylenol prn Neurontin 100mg PO TID Keppra 1000 mg PO BID Ativan 1mg IVP prn Naproxen prn pain Oxycodone prn severe pain Zoloft 125 mg PO daily Carotid dopplers 04/11 - negative MRI 04/11 - Brain lesion which exerts mass effect with compression and inferior displacement of the right lateral ventricle and overlying sulcal effacement right cerebral hemisphere f/u echo report f/u EEG f/u Palathingal eval HTN Norvasc 5mg PO daily COPD Duoneb 3ml INH Rq6 pepe Singulair 10mg PO HS Advair 250/50 1 puff INH Q12 pepe GERD Maalox prn Constipation Colace 100mg PO Q12 hours Milk of Magnesia prn Enema x 1 04/12 Electrolyte abnormalities K 3.5 - given 20meq PO potassium Mg 1.5 - give 2 grams IV Magsulfate Hyperlipidemia Gemfibrozil 600mg PO BID Hyperthyroidism not on medication Hx. CVA Prophylaxis Lovenox 40mg SC daily Protonix 40mg IVP daily Dispo -> Dr. Lorenzo would like a heme/onc eval prior to discharge. Patient is following up with her heme/onc Dr. Sal (next appt April 23). Dr. Sal is [facility] of [facility]. Patient is also to follow up with her neurosurgeon outpatient at [facility] for possible tumor debulking. All orders and management per Dr. Azam Molina.
[2018-04-12] MEDS: Naproxen 550 mg Tab PO PRN ×2 (10:25→22:09)
--- NOTE | 2018-04-12 10:45 | CARD ---
APPROVED REPORT EXAM: Two-dimensional and M-mode echocardiogram with Doppler and color Doppler. Other Information Quality : GoodRhythm : INDICATION Infection:Rule out subacute bacterial endocarditis 2D DIMENSIONS IVSd1.2 (0.7-1.1cm)LVDd4.2 (3.9-5.9cm) PWd1.3 (0.7-1.1cm)LVDs2.7 (2.5-4.0cm) FS (%) 35.3 %LVEF (%)65.1 (>50%) M-Mode DIMENSIONS Left Atrium (MM)3.03 (2.5-4.0cm)IVSd0.89 (0.7-1.1cm) Aortic Root3.19 (2.2-3.7cm)LVDd2.73 (4.0-5.6cm) Aortic Cusp Exc.1.66 (1.5-2.0cm)PWd0.91 (0.7-1.1cm) FS (%) 26 %LVDs3.45 (2.0-3.8cm) LVEF (%)77 (>50%) Mitral Valve MV E Hcaueall35.4cm/sMV A Kcjatppb89.0cm/sE/A ratio0.6 TDI E/Lateral E'0.0E/Medial E'0.0 Tricuspid Valve TR Peak [id number]/sTR Peak Gr.[id number] LEFT VENTRICLE There is mild concentric left ventricular hypertrophy. Left ventricle systolic function is nomal.The Ejection Fraction is 65-70%. There is normal LV segmental wall motion. The left ventricular diastolic function is abnormal.Transmitral Doppler flow pattern-Grade I-abnormal relaxation pattern. No left ventricle thrombus noted on this study. There is no left ventricular aneurysm. RIGHT VENTRICLE The right ventricle is normal size. The right ventricular systolic function is normal. ATRIA The left atrium size is normal. The right atrium size is normal. AORTIC VALVE The aortic valve is moderately sclerotic. The aortic valve is trileaflet. No aortic regurgitation is present. There is no aortic valvular stenosis. Cannot exclude aortic valvular vegetation. MITRAL VALVE Mitral annular calcification is mild to moderate. The mitral valve leaflets are thickened. There is no evidence of mitral valve prolapse. There is no mitral valve stenosis. Mitral regurgitation is mild. TRICUSPID VALVE The tricuspid valve is normal in structure. There is trace to mild tricuspid regurgitation. Right ventricular systolic pressure is estimated at 30-40 mmHg. There is no pulmonary hypertension. There is no tricuspid valve prolapse or vegetation. There is no tricuspid valve stenosis. PULMONIC VALVE The pulmonary valve is normal in structure. There is trace to mild pulmonic valvular regurgitation. There is trace pulmonic stenosis. GREAT VESSELS The aortic root is normal in size. The IVC was not visualized. PERICARDIAL EFFUSION There is no pericardial effusion. There is no pleural effusion. <Conclusion> There is mild concentric left ventricular hypertrophy. Left ventricle systolic function is nomal.The Ejection Fraction is 65-70%. The left ventricular diastolic function is abnormal.Transmitral Doppler flow pattern-Grade I-abnormal relaxation pattern. The right ventricle is normal size. The right ventricular systolic function is normal. The left atrium size is normal. The right atrium size is normal. No aortic regurgitation is present. Cannot exclude aortic valvular vegetation. Mitral regurgitation is mild. There is trace to mild tricuspid regurgitation. There is trace to mild pulmonic valvular regurgitation.
[2018-04-12 11:20] LABS: BASO % 0.1 % (0.0-2.0); EOS # 0.1 K/uL (0.0-0.7); EOS % 0.6 % (0.0-4.0); LYMPH # 2.2 K/uL (1.0-4.3); LYMPH % 15.8 % (20.0-40.0); MEAN CELL VOLUME 85.1 fL (81.0-99.0); MEAN PLATELET VOLUME 8.1 fL (7.2-11.7); MONO # 0.4 K/uL (0.0-0.8); MONO % 2.8 % (0.0-10.0); NEUT % 80.7 % (50.0-75.0); RBC 4.47 Mil/uL (3.80-5.20); RED CELL DISTRIBUTION WIDTH 14.6 % (11.5-14.5); WHITE BLOOD COUNT 13.7 K/uL (4.8-10.8)
[2018-04-12 11:36] LABS: ALB/GLOB RATIO 1.4 (1.0-2.1); ALBUMIN 4.1 g/dL (3.5-5.0); ALT/SGPT 20 U/L (9-52); AST/SGOT 17 U/L (14-36); BLOOD UREA NITROGEN 18 mg/dL (7-17); CALCIUM 9.8 mg/dl (8.6-10.4); GFR AFRICAN-AMERICAN > 60; GFR NON-AFRICAN AMERICAN > 60
[2018-04-12] MEDS ORDERED: Potassium Chloride 20 mEq/15 ml LIQ UD PO STA (11:40)
[2018-04-12] MEDS: Magnesium Sulfate 1 gm in D5W 1 GM/100 ML BAG IVPB SCH ×2 (12:02→13:45)
--- NOTE | 2018-04-12 12:07 | CON ---
DATE: 04/12/2018 REASON FOR CONSULTATION: Weakness. CHIEF COMPLAINT: The patient was brought in from the detention with a history of weakness. From neurological point of view, I was called in to evaluate her for further management. HISTORY OF PRESENT ILLNESS: Ms. Kourtney Jean is a 67-year-old right-handed female who had been diagnosed with brain tumor, been operated at [facility] in 08/2017 following one attempt of radiation because of intolerability of radiation, which was on hold. Being followed by her own oncologist. The patient does have mild weakness of her left side following craniotomy. She has been in detention ever since. The patient has been complaining of for the last two weeks increasing weakness of her left side without having headache or visual disturbances or speech impairment. Because of the increasing of her weakness, the patient was transferred to the [facility] for further management. At present, her weakness remains the same, somewhat improved to compare with when she was in the detention. Denies new headache. Denies visual or bulbar dysfunction. PAST MEDICAL HISTORY: Brain tumor status post craniotomy and possible mediastinal tumor, which is not clear. No further workup is done as per the patient. The patient is known to have dyslipidemia, hypertension and depression. REVIEW OF SYSTEMS: A 12-point system being reviewed. From neuro, craniotomy for brain tumor, possible recurrent tumor with seizures and left hemiparesis. PHYSICAL EXAMINATION: VITAL SIGNS: Blood pressure 136/83, mean arterial pressure of 100, respiratory rate 16, temperature 97.8 with a pulse rate 78 regular. NECK: Supple. No carotid bruits. HEART: Sounds regular. CHEST: Fair air entry. EXTREMITIES: No edema in legs. NEUROLOGIC EXAMINATION: Mental status examination: She is awake, alert, and oriented to person, place, and time. Her speech is clear. Naming, repetition, fluency, comprehension all within normal. At times, her speech is dysarthric. Cranial nerve examination: Visual field intact. Pupils reactive to light. Extraocular movement normal. No nystagmus. No facial or sensory deficit. No facial asymmetry. Hearing is normal. Tongue is midline. Good gag. MOTOR EXAMINATION: She showed significant weakness of the left side manifesting with 3/5 hemiparesis both arm and leg, arm more than her leg on her left side. Deep tendon reflexes absent. Plantars are upgoing on both sides. Sensory examination: Distal sensory motor neuropathy. No extinction to double simultaneous stimuli. Coordination: Finger-nose test is intact on her right side. DIAGNOSTIC WORKUP: MRI of the brain being reviewed, showed about 3 x 2 right high frontoparietal tumor with significant vasogenic edema with a shift to the left noted. Another stroke in the right frontal as well as old right cerebral stroke also seen. Her carotid Doppler was reported as negative for significant stenosis. BLOOD WORKUP: WBC 12.6, hemoglobin 13.0, hematocrit 38.3, platelets 277. Sodium 139, potassium 4.0, chloride 98, bicarbonate 25, BUN 22, GFR more than 60, glucose 287. Hemoglobin A1c 6.8. TSH 0.12. Prolactin 15.3. CONCLUSION: Ms. Kourtney Jean has been presenting with worsening left hemiparesis consistent with right cerebral dysfunction. As per radiological view as well as neurological examination, the patient does have a recurrent brain tumor with vasogenic edema manifesting her left-sided weakness. From the history, I doubt it is a seizure related Jp's paresis. RECOMMENDATIONS: 1. Increase the Keppra dose for her safety to keep the therapeutic level for Keppra to control her seizures. 2. Continue steroids to decrease the vasogenic edema. 3. Oncology consult should be called in. 4. Considering her presentation not willing to go for radiation, chemotherapy can be tried or debulking of solitary tumor is indicated for now. 5. We are awaiting for Oncology input. 6. Continue the present management and I will review the electroencephalogram. Paul Lorenzo MD
--- NOTE | 2018-04-12 18:39 | CP.PCM.PN ---
Subjective - Date & Time of Evaluation Date of Evaluation: 04/12/18 Time of Evaluation: 08:00 - Subjective Subjective: clinically same Objective - Vital Signs/Intake and Output Vital Signs (last 24 hours): Temp Pulse Resp BP Pulse Ox 97.9 F 82 20 121/74 95 04/12/18 17:00 04/12/18 17:00 04/12/18 17:00 04/12/18 17:00 04/12/18 17:00 Intake and Output: 04/12/18 04/12/18 06:59 18:59 Intake Total 250 200 Output Total 0 Balance 250 200 - Medications Medications: Current Medications Acetaminophen (Tylenol 325mg Tab) 650 mg PO Q4H PRN PRN Reason: Fever >100.4 F Al Hydrox/Mg Hydrox/Simethicone (Maalox Plus 30 Ml) 30 ml PO Q4H PRN PRN Reason: heartburn & indigestion Amlodipine Besylate (Norvasc) 5 mg PO DAILY [facility] Last Admin: 04/12/18 10:25 Dose: 5 mg Dexamethasone (Decadron) 4 mg PO TID [facility] Last Admin: 04/12/18 17:51 Dose: 4 mg Docusate Sodium (Colace) 100 mg PO Q12H PRN PRN Reason: Constipation Last Admin: 04/12/18 10:25 Dose: 100 mg Gabapentin (Neurontin) 100 mg PO TID [facility] Last Admin: 04/12/18 17:51 Dose: 100 mg Gemfibrozil (Lopid) 600 mg PO BID [facility] Last Admin: 04/12/18 17:51 Dose: 600 mg Levetiracetam (Keppra) 1,000 mg PO BID [facility] Last Admin: 04/12/18 17:51 Dose: 1,000 mg Lorazepam (Ativan) 1 mg IVP ONCE PRN PRN Reason: to be given prior to mri Last Admin: 04/11/18 13:53 Dose: 1 mg Magnesium Hydroxide (Milk Of Magnesia) 30 ml PO Q24H PRN PRN Reason: Constipation Naproxen (Anaprox Ds) 550 mg PO Q12H PRN PRN Reason: Pain, moderate (4-7) Last Admin: 04/12/18 10:25 Dose: 550 mg Ondansetron HCl (Zofran Odt) 4 mg PO Q6H PRN PRN Reason: Nausea/Vomiting Oxycodone HCl (Oxycodone Immediate Release Tab) 5 mg PO Q4H PRN PRN Reason: Pain, severe (8-10) Pantoprazole Sodium (Protonix Inj) 40 mg IVP DAILY [facility] Last Admin: 04/12/18 10:25 Dose: 40 mg Pneumococcal Polyvalent Vaccine (Pneumovax 23 Vaccine) 0.5 ml IM .ONCE ONE Stop: 04/13/18 10:01 Sertraline HCl (Zoloft) 25 mg PO DAILY [facility] Last Admin: 04/12/18 10:25 Dose: 25 mg Sertraline HCl (Zoloft) 100 mg PO DAILY [facility] Last Admin: 04/12/18 10:28 Dose: 100 mg Sodium Chloride ([place] Baby Saline 30 Ml) 1 ml NEEL PRN PRN PRN Reason: Nasal congestion - Labs Labs: 04/12/18 11:08 04/12/18 11:08 - Constitutional Appears: Well - Head Exam Head Exam: ATRAUMATIC, NORMAL INSPECTION, NORMOCEPHALIC - Eye Exam Eye Exam: EOMI, Normal appearance, PERRL Pupil Exam: NORMAL ACCOMODATION, PERRL - ENT Exam ENT Exam: Mucous Membranes Moist, Normal Exam - Neck Exam Neck Exam: Full ROM, Normal Inspection. absent: Lymphadenopathy - Respiratory Exam Respiratory Exam: Decreased Breath Sounds - Cardiovascular Exam Cardiovascular Exam: REGULAR RHYTHM, +S1, +S2 - GI/Abdominal Exam GI & Abdominal Exam: Soft, Diminished Bowel Sounds - Rectal Exam Rectal Exam: Deferred
[2018-04-13 08:09] LABS: BASO # 0.1 K/uL (0.0-0.2); BASO % 0.9 % (0.0-2.0); EOS % 0.2 % (0.0-4.0); HEMOGLOBIN 13.3 g/dL (11.0-16.0); LYMPH # 1.9 K/uL (1.0-4.3); LYMPH % 12.6 % (20.0-40.0); MEAN CELL VOLUME 83.8 fL (81.0-99.0); MEAN CORPUSCULAR HEMOGLOBIN 29.1 pg (27.0-31.0); MEAN CORPUSCULAR HGB CONC 34.8 g/dL (33.0-37.0); MEAN PLATELET VOLUME 8.5 fL (7.2-11.7); MONO # 0.6 K/uL (0.0-0.8); MONO % 4.1 % (0.0-10.0); NEUT # 12.3 K/uL (1.8-7.0); NEUT % 82.2 % (50.0-75.0); RBC 4.58 Mil/uL (3.80-5.20); RED CELL DISTRIBUTION WIDTH 14.6 % (11.5-14.5)
[2018-04-13 08:33] LABS: ALB/GLOB RATIO 1.4 (1.0-2.1); ALBUMIN 4.1 g/dL (3.5-5.0); ALT/SGPT 19 U/L (9-52); AST/SGOT 16 U/L (14-36); BLOOD UREA NITROGEN 21 mg/dL (7-17); CALCIUM 9.9 mg/dl (8.6-10.4); GFR AFRICAN-AMERICAN > 60; GFR NON-AFRICAN AMERICAN > 60
[2018-04-13] MEDS ORDERED: Pneumococcal 23-Valent Vaccine IM ONE (10:00)
--- NOTE | 2018-04-13 10:02 | CP.PCM.PN ---
Subjective - Date & Time of Evaluation Date of Evaluation: 04/13/18 Time of Evaluation: 10:02 - Subjective Subjective: Medicine progress note for Dr. Molina's service Patient seen and examined. Patient states she is feeling better. She reports her left hand and arm are still very weak; reports no improvement. She states enema helped relieve constipation. She reports fair appetite. Objective - Vital Signs/Intake and Output Vital Signs (last 24 hours): Temp Pulse Resp BP Pulse Ox 98.6 F 81 20 123/68 97 04/13/18 08:00 04/13/18 08:00 04/13/18 08:00 04/13/18 08:00 04/13/18 08:00 Intake and Output: 04/13/18 04/13/18 06:59 18:59 Intake Total 300 Balance 300 - Medications Medications: Current Medications Acetaminophen (Tylenol 325mg Tab) 650 mg PO Q4H PRN PRN Reason: Fever >100.4 F Al Hydrox/Mg Hydrox/Simethicone (Maalox Plus 30 Ml) 30 ml PO Q4H PRN PRN Reason: heartburn & indigestion Amlodipine Besylate (Norvasc) 5 mg PO DAILY [facility] Last Admin: 04/13/18 09:32 Dose: 5 mg Dexamethasone (Decadron) 4 mg PO TID [facility] Last Admin: 04/13/18 09:31 Dose: 4 mg Docusate Sodium (Colace) 100 mg PO Q12H PRN PRN Reason: Constipation Last Admin: 04/12/18 10:25 Dose: 100 mg Gabapentin (Neurontin) 100 mg PO TID [facility] Last Admin: 04/13/18 09:31 Dose: 100 mg Gemfibrozil (Lopid) 600 mg PO BID [facility] Last Admin: 04/13/18 09:32 Dose: 600 mg Levetiracetam (Keppra) 1,000 mg PO BID [facility] Last Admin: 04/13/18 09:31 Dose: 1,000 mg Lorazepam (Ativan) 1 mg IVP ONCE PRN PRN Reason: to be given prior to mri Last Admin: 04/11/18 13:53 Dose: 1 mg Magnesium Hydroxide (Milk Of Magnesia) 30 ml PO Q24H PRN PRN Reason: Constipation Naproxen (Anaprox Ds) 550 mg PO Q12H PRN PRN Reason: Pain, moderate (4-7) Last Admin: 04/12/18 22:09 Dose: 550 mg Ondansetron HCl (Zofran Odt) 4 mg PO Q6H PRN PRN Reason: Nausea/Vomiting Oxycodone HCl (Oxycodone Immediate Release Tab) 5 mg PO Q4H PRN PRN Reason: Pain, severe (8-10) Pantoprazole Sodium (Protonix Inj) 40 mg IVP DAILY [facility] Last Admin: 04/13/18 09:32 Dose: 40 mg Sertraline HCl (Zoloft) 25 mg PO DAILY [facility] Last Admin: 04/13/18 09:32 Dose: 25 mg Sertraline HCl (Zoloft) 100 mg PO DAILY [facility] Last Admin: 04/13/18 09:33 Dose: 100 mg Sodium Chloride ([place] Baby Saline 30 Ml) 1 ml NEEL PRN PRN PRN Reason: Nasal congestion - Labs Labs: 04/13/18 08:02 04/13/18 08:02 - Constitutional Appears: No Acute Distress, Chronically Ill - Head Exam Head Exam: ATRAUMATIC, NORMOCEPHALIC - Eye Exam Eye Exam: EOMI - ENT Exam ENT Exam: Mucous Membranes Moist - Respiratory Exam Respiratory Exam: Decreased Breath Sounds, NORMAL BREATHING PATTERN - Cardiovascular Exam Cardiovascular Exam: +S1, +S2 - GI/Abdominal Exam GI & Abdominal Exam: Soft, Normal Bowel Sounds. 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 Lorenzo consulted - f/u EEG, rec continue steroids, increase Keppra. Decadron 4mg PO TID Tylenol prn Neurontin 100mg PO TID Keppra 1000 mg PO BID Ativan 1mg IVP prn Naproxen prn pain Oxycodone prn severe pain Zoloft 125 mg PO daily Carotid dopplers 04/11 - negative MRI 04/11 - Brain lesion which exerts mass effect with compression and inferior displacement of the right lateral ventricle and overlying sulcal effacement right cerebral hemisphere f/u Palathingal eval (covering Dr. Byrne, patient's heme-onc) patient previously did not tolerate radiation well, patient to meet with her oncologist Dr. Byrne on April 23 to further treatment plan HTN Norvasc 5mg PO daily COPD Duoneb 3ml INH Rq6 traci Singulair 10mg PO HS Advair 250/50 1 puff INH Q12 traci GERD Maalox prn Constipation Colace 100mg PO Q12 hours Milk of Magnesia prn Enema x 1 04/12- pt had bowel movement Electrolyte abnormalities continue to monitor and replete Hyperlipidemia Gemfibrozil 600mg PO BID Hyperthyroidism not on medication Hx. CVA Prophylaxis Lovenox 40mg SC daily Protonix 40mg IVP daily Dispo -> Patient seen by Dr. Lagunas here, consult pending. Patient is following up with her heme/onc Dr. Sal (next appt April 23). Dr. Byrne is currently of [facility]. Patient is also to follow up with her neurosurgeon outpatient at [place] for possible tumor debulking. Patient is stable back to nursing facility per Dr. Molina. Patient is to follow up with Dr. Lorenzo upon discharge, as well as her oncologist Dr. Byrne on April 23. Patient is to be discharged with increased dose Keppra 1000mg PO BID. Patient to resume all other home medications. All orders and management per Dr. Azam Molina.
--- NOTE | 2018-04-13 10:57 | PN ---
DATE: 04/13/2018 TIME OF EVALUATION: 07:10 a.m. 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 PHYSICAL EXAMINATION: VITAL SIGNS: Blood pressure 129/79, mean artery pressure of 95, respiratory 16, temperature 98.6. NEUROLOGIC: The patient is arousable, more awake, alert, slept good. Weakness is somewhat improved to compare with yesterday as per the patient. The patient's examination which is unchanged to compared with my yesterday's findings. The patient was seen by oncologist and the recommendation is not provided yet. If medically stable, the patient can be [facility] and advised to have followup visit with neurosurgeon at [facility] possible debulking of the tumor. The patient agreed with plan of management. In meantime, continue the same treatment as she has been getting. The patient if stable can be discharged and should have followup visit with me as outpatient. Paul Lorenzo MD
--- NOTE | 2018-04-13 12:44 | CP.PCM.PN ---
Subjective - Date & Time of Evaluation Date of Evaluation: 04/13/18 Time of Evaluation: 08:00 - Subjective Subjective: clinically same Objective - Vital Signs/Intake and Output Vital Signs (last 24 hours): Temp Pulse Resp BP Pulse Ox 98.6 F 81 20 123/68 97 04/13/18 08:00 04/13/18 08:00 04/13/18 08:00 04/13/18 08:00 04/13/18 08:00 Intake and Output: 04/13/18 04/13/18 06:59 18:59 Intake Total 300 Balance 300 - Medications Medications: Current Medications Acetaminophen (Tylenol 325mg Tab) 650 mg PO Q4H PRN PRN Reason: Fever >100.4 F Al Hydrox/Mg Hydrox/Simethicone (Maalox Plus 30 Ml) 30 ml PO Q4H PRN PRN Reason: heartburn & indigestion Amlodipine Besylate (Norvasc) 5 mg PO DAILY [facility] Last Admin: 04/13/18 09:32 Dose: 5 mg Dexamethasone (Decadron) 4 mg PO TID [facility] Last Admin: 04/13/18 09:31 Dose: 4 mg Docusate Sodium (Colace) 100 mg PO Q12H PRN PRN Reason: Constipation Last Admin: 04/12/18 10:25 Dose: 100 mg Gabapentin (Neurontin) 100 mg PO TID [facility] Last Admin: 04/13/18 09:31 Dose: 100 mg Gemfibrozil (Lopid) 600 mg PO BID [facility] Last Admin: 04/13/18 09:32 Dose: 600 mg Levetiracetam (Keppra) 1,000 mg PO BID [facility] Last Admin: 04/13/18 09:31 Dose: 1,000 mg Lorazepam (Ativan) 1 mg IVP ONCE PRN PRN Reason: to be given prior to mri Last Admin: 04/11/18 13:53 Dose: 1 mg Magnesium Hydroxide (Milk Of Magnesia) 30 ml PO Q24H PRN PRN Reason: Constipation Naproxen (Anaprox Ds) 550 mg PO Q12H PRN PRN Reason: Pain, moderate (4-7) Last Admin: 04/12/18 22:09 Dose: 550 mg Ondansetron HCl (Zofran Odt) 4 mg PO Q6H PRN PRN Reason: Nausea/Vomiting Oxycodone HCl (Oxycodone Immediate Release Tab) 5 mg PO Q4H PRN PRN Reason: Pain, severe (8-10) Pantoprazole Sodium (Protonix Inj) 40 mg IVP DAILY [facility] Last Admin: 04/13/18 09:32 Dose: 40 mg Sertraline HCl (Zoloft) 25 mg PO DAILY [facility] Last Admin: 04/13/18 09:32 Dose: 25 mg Sertraline HCl (Zoloft) 100 mg PO DAILY [facility] Last Admin: 04/13/18 09:33 Dose: 100 mg Sodium Chloride ([place] Baby Saline 30 Ml) 1 ml NEEL PRN PRN PRN Reason: Nasal congestion - Labs Labs: 04/13/18 08:02 04/13/18 08:02 - Constitutional Appears: Well - Head Exam Head Exam: ATRAUMATIC, NORMAL INSPECTION, NORMOCEPHALIC - Eye Exam Eye Exam: EOMI, Normal appearance, PERRL Pupil Exam: NORMAL ACCOMODATION, PERRL - ENT Exam ENT Exam: Mucous Membranes Moist, Normal Exam - Neck Exam Neck Exam: Full ROM, Normal Inspection. absent: Lymphadenopathy - Respiratory Exam Respiratory Exam: Decreased Breath Sounds - Cardiovascular Exam Cardiovascular Exam: REGULAR RHYTHM, +S1, +S2 - GI/Abdominal Exam GI & Abdominal Exam: Soft, Diminished Bowel Sounds - Rectal Exam Rectal Exam: Deferred
--- NOTE | 2018-04-13 16:19 | CP.PCM.CON ---
History of Present Illness - History of Present Illness History of Present Illness: Oncology coverage for Dr. Hernandez, 67 yo woman,with history of small cell lung cancer, s/p treatment with local radiation and chemotherapy in 2014, offered prophylactic cranial irradiation then, but refused. Developed severe headaches late last year and work up showed single brain met, she was unable to tolerate RT, so referred to neurosurgeon, had surgery, presenting now with recurrent brain mets. She denies seizure like activity, pain, SOB Past Patient History - Infectious Disease Hx of Infectious Diseases: None - Tetanus Immunizations Tetanus Immunization: Unknown - Past Medical History & Family History Past Medical History?: Yes - Past Social History Smoking Status: Current Some Days Smoker - CARDIAC Hx Cardiac Disorders: Yes Hx Hypertension: Yes - PULMONARY Hx Chronic Obstructive Pulmonary Disease (COPD): Yes - NEUROLOGICAL HX Cerebrovascular Accident: Yes (2014 L SIDE WEAKNESS) - HEENT Hx HEENT Problems: Yes Other/Comment: wears eyeglasses - RENAL Hx Chronic Kidney Disease: No - ENDOCRINE/METABOLIC Hx Endocrine Disorders: Yes Hx Hyperthyroidism: Yes - HEMATOLOGICAL/ONCOLOGICAL Hx Blood Disorders: No Hx Blood Transfusions: No Hx Cancer: Yes (small cell lung cancer 2014) Hx Chemotherapy: Yes (plus radiation) - INTEGUMENTARY Hx Dermatological Problems: No - MUSCULOSKELETAL/RHEUMATOLOGICAL Hx Musculoskeletal Disorders: Yes Hx Falls: Yes Hx Unsteady Gait: Yes - GASTROINTESTINAL Hx Gastrointestinal Disorders: Yes Hx Constipation: Yes Hx Gastroesophageal Reflux: Yes (w/ esophagitis) - GENITOURINARY/GYNECOLOGICAL Hx Genitourinary Disorders: No - PSYCHIATRIC Hx Psychophysiologic Disorder: Yes Hx Depression: No (PRESENTLY DEPRESSED) Hx Substance Use: No - SURGICAL HISTORY Hx Surgeries: Yes Hx Coronary Stent: Yes - ANESTHESIA Hx Anesthesia: Yes Hx Anesthesia Reactions: No Hx Malignant Hyperthermia: No Has any member of the family had a problem w/ anesthesia?: No Meds Home Medications: Home Medication List Medication Instructions Recorded Confirmed Type levETIRAcetam [Keppra] 1,000 mg PO BID #0 tab 04/13/18 Rx Allergies/Adverse Reactions: Allergies Allergy/AdvReac Type Severity Reaction Status Date / Time FISH Allergy Verified 01/22/18 15:10 iodine Allergy Verified 01/22/18 15:10 iron Allergy Verified 01/22/18 15:10 Penicillins Allergy Verified 01/22/18 15:10 Sulfa (Sulfonamide Allergy Verified 01/22/18 15:10 Antibiotics) seafood Allergy Uncoded 08/11/17 18:53 - Medications Medications: Current Medications Acetaminophen (Tylenol 325mg Tab) 650 mg PO Q4H PRN PRN Reason: Fever >100.4 F Al Hydrox/Mg Hydrox/Simethicone (Maalox Plus 30 Ml) 30 ml PO Q4H PRN PRN Reason: heartburn & indigestion Amlodipine Besylate (Norvasc) 5 mg PO DAILY [facility] Last Admin: 04/13/18 09:32 Dose: 5 mg Dexamethasone (Decadron) 4 mg PO TID [facility] Last Admin: 04/13/18 13:38 Dose: 4 mg Docusate Sodium (Colace) 100 mg PO Q12H PRN PRN Reason: Constipation Last Admin: 04/12/18 10:25 Dose: 100 mg Gabapentin (Neurontin) 100 mg PO TID [facility] Last Admin: 04/13/18 13:37 Dose: 100 mg Gemfibrozil (Lopid) 600 mg PO BID [facility] Last Admin: 04/13/18 09:32 Dose: 600 mg Levetiracetam (Keppra) 1,000 mg PO BID [facility] Last Admin: 04/13/18 09:31 Dose: 1,000 mg Lorazepam (Ativan) 1 mg IVP ONCE PRN PRN Reason: to be given prior to mri Last Admin: 04/11/18 13:53 Dose: 1 mg Magnesium Hydroxide (Milk Of Magnesia) 30 ml PO Q24H PRN PRN Reason: Constipation Naproxen (Anaprox Ds) 550 mg PO Q12H PRN PRN Reason: Pain, moderate (4-7) Last Admin: 04/12/18 22:09 Dose: 550 mg Ondansetron HCl (Zofran Odt) 4 mg PO Q6H PRN PRN Reason: Nausea/Vomiting Oxycodone HCl (Oxycodone Immediate Release Tab) 5 mg PO Q4H PRN PRN Reason: Pain, severe (8-10) Pantoprazole Sodium (Protonix Inj) 40 mg IVP DAILY [facility] Last Admin: 04/13/18 09:32 Dose: 40 mg Sertraline HCl (Zoloft) 25 mg PO DAILY [facility] Last Admin: 04/13/18 09:32 Dose: 25 mg Sertraline HCl (Zoloft) 100 mg PO DAILY [facility] Last Admin: 04/13/18 09:33 Dose: 100 mg Sodium Chloride ([place] Baby Saline 30 Ml) 1 ml NEEL PRN PRN PRN Reason: Nasal congestion Results - Vital Signs Recent Vital Signs: Last Vital Signs Temp 98.6 F 04/13/18 08:00 Pulse 81 04/13/18 08:00 Resp 20 04/13/18 08:00 BP 123/68 04/13/18 08:00 Pulse Ox 97 04/13/18 08:00 - Labs Result Diagrams: 04/13/18 08:02 04/13/18 08:02 Labs: Laboratory Results - last 24 hr 04/13/18 04/13/18 08:02 08:02 WBC 15.0 H RBC 4.58 Hgb 13.3 Hct 38.3 MCV 83.8 MCH 29.1 MCHC 34.8 RDW 14.6 H Plt Count 318 MPV 8.5 Neut % (Auto) 82.2 H Lymph % (Auto) 12.6 L [place] % (Auto) 4.1 Eos % (Auto) 0.2 Baso % (Auto) 0.9 Neut # (Auto) 12.3 H Lymph # (Auto) 1.9 [place] # (Auto) 0.6 Eos # (Auto) 0.0 Baso # (Auto) 0.1 Sodium 139 Potassium 4.1 Chloride 100 Carbon Dioxide 28 Anion Gap 15 BUN 21 H Creatinine 0.7 Est GFR ( Amer) > 60 Est GFR (Non-Af Amer) > 60 Random Glucose 143 H Calcium 9.9 Phosphorus 3.9 Magnesium 1.9 Total Bilirubin 0.7 AST 16 ALT 19 Alkaline Phosphatase 72 Total Protein 7.1 Albumin 4.1 Globulin 2.9 Albumin/Globulin Ratio 1.4 Assessment & Plan (1) Small cell lung cancer Assessment and Plan: 67 yo woman with history of small cell lung cancer, s/p treatment with RT and chemo in 2014, now with recurrent/progressive brain mets. The patient is aware of the progressive cancer in the brain, doesn't want more treatment, she said she wants palliative care alone, wants to be DNR and has her plans ready. Plan- Hospice/palliative care referral Status: Acute
[2018-04-13 16:38] VITALS: BP 120/77; PULSE 83; TEMP 98.5; O2SAT 95
== END 2018-04-13 20:05 | DRG 54 ==
LOC: C.ER 18:53 → C.3T 04-11 00:54
PROVIDERS: ADMIT Internal Medicine Nephrology; ATTEND Internal Medicine Nephrology
DX: C79.31 Secondary malignant neoplasm of brain (principal); G93.6 Cerebral edema; G81.94 Hemiplegia, unspecified affecting left nondominant side; E05.90 Thyrotoxicosis, unspecified without thyrotoxic crisis or storm; E78.5 Hyperlipidemia, unspecified; F17.210 Nicotine dependence, cigarettes, uncomplicated; I10 Essential (primary) hypertension; J44.9 Chronic obstructive pulmonary disease, unspecified; K21.0 Gastro-esophageal reflux disease with esophagitis; Z85.118 Personal history of other malignant neoplasm of bronchus and lung; R26.81 Unsteadiness on feet; K59.00 Constipation, unspecified

== ENCOUNTER 2018-08-13 14:01 | Emergency (ER) | payer MEDICARE, MEDICAID ==
[2018-08-13 14:02] VITALS: BMI 28.3
[2018-08-13 14:40] VITALS: RESP 20
--- NOTE | 2018-08-13 15:50 | CT ---
Date of service: 08/13/2018 PROCEDURE: CT ORBITS WITHOUT CONTRAST. HISTORY: FELL INTO LEFT SIDE OF FACE COMPARISON: None available. TECHNIQUE: Axial CT images of the orbits were obtained. Coronal and sagittal reformats were generated. Radiation dose: Total exam DLP = 737.91 mGy-cm. This CT exam was performed using one or more of the following dose reduction techniques: Automated exposure control, adjustment of the mA and/or kV according to patient size, and/or use of iterative reconstruction technique. FINDINGS: RIGHT ORBIT: RIGHT BONY ORBIT: Normal. RIGHT INTRAORBITAL STRUCTURES: Globe: Normal. Extraocular muscles: Normal. Post septal space: Normal. Optic Nerve: Normal. Lacrimal Apparatus: Normal. RIGHT PRESEPTAL SOFT TISSUES: Normal. LEFT ORBIT: LEFT BONY ORBIT: No evidence of acute displaced fracture LEFT INTRAORBITAL STRUCTURES: Globe: Normal. Extraocular muscles: Normal. Post septal space: Normal Optic Nerve: Normal. . Lacrimal Apparatus: Normal. LEFT PRESEPTAL SOFT TISSUES: Mild left periorbital soft tissue swelling noted. OTHER: Mild soft tissue swelling and subcutaneous stranding seen in the left facial region. IMPRESSION: No evidence of acute displaced fracture. Mild left facial and left periorbital soft tissue swelling. No evidence of retrobulbar hematoma.
--- NOTE | 2018-08-13 16:07 | C.PDOC ---
History Of Present Illness 68-year-old female, is sent to the emergency department from snf for evaluation. Patient states she was in her wheelchair, reaching for her glasses and the wheelchair rolled forward, resulting in her falling onto her left cheek and bilateral knees. Patient denies any headache, dizziness, chest pain or shortness of breath. No other complaints at this time. Time Seen by Provider: 08/13/18 14:06 Chief Complaint (Nursing): Lower Extremity Problem/Injury History Per: Patient History/Exam Limitations: no limitations Past Medical History Reviewed: Historical Data, Nursing Documentation, Vital Signs Vital Signs: Last Vital Signs Temp 97.8 F 08/13/18 14:03 Pulse 102 H 08/13/18 14:03 Resp 20 08/13/18 14:03 BP 126/78 08/13/18 14:03 Pulse Ox 97 08/13/18 14:03 - Medical History PMH: COPD, CVA, HTN, Hyperthyroidism Denies: Depression (PRESENTLY DEPRESSED), Chronic Kidney Disease Surgical History: Coronary Stent, Tonsillectomy - [facility] Procedures ENDOSCOPIC BRONCHIAL BX (01/07/15) RESP TRACT INTUBAT NEC (01/07/15) Family History: States: No Known Family Hx - Social History Hx Tobacco Use: Yes Hx Alcohol Use: No Hx Substance Use: No - Immunization History Hx Tetanus Toxoid Vaccination: No Hx Influenza Vaccination: No Hx Pneumococcal Vaccination: No Review Of Systems Cardiovascular: Negative for: Chest Pain Respiratory: Negative for: Shortness of Breath Neurological: Negative for: Headache, Dizziness Physical Exam - Physical Exam Appears: Non-toxic, No Acute Distress Skin: Warm, Dry, No Rash Head: Atraumatic, Other (contusion on left cheek) Eye(s): bilateral: Normal Inspection Nose: Normal Oral Mucosa: Moist Lips: Normal Appearing Neck: Normal ROM Chest: Symmetrical Cardiovascular: Rhythm Regular, No Murmur Respiratory: Normal Breath Sounds, No Accessory Muscle Use Gastrointestinal/Abdominal: Soft, No Tenderness Back: Normal Inspection Extremity: No Deformity, Swelling (mild, bilateral knees. No abrasions. No ecchymosis) Neurological/Psych: Oriented x3, Normal Speech ED Course And Treatment O2 Sat by Pulse Oximetry: 97 Pulse Ox Interpretation: Normal (RA) Progress Note: CT Face, XR knees ordered and reviewed. Pt treated with Tylenol for pain. Disposition Counseled Patient/Family Regarding: Studies Performed, Diagnosis, Need For Followup - Disposition Referrals: Eddie Molina MD [Staff Provider] - Disposition: TRANSF TO SNF Disposition Time: 16:00 Condition: STABLE Additional Instructions: FOLLOW UP WITH YOUR DOCTOR/CLINIC IN 1-2 DAYS RETURN TO EMERGENCY ROOM IF SYMPTOMS BECOME WORSE SEGUIR CON [place]IVERA MDICO / CLNICA EN 1-2 LACEY VUELVA A LA LINDA DE EMERGENCIA SI LOS SNTOMAS SE HACEN [place] Instructions: Contusion (DC), Knee Sprain (DC) Forms: [id number] ([place]) Print Language: MONGOLIAN - POA Present On Arrival: Falls Or Trauma - Clinical Impression Clinical Impression: Contusion, cheek, Knee sprain, bilateral - Scribe Statement The provider has reviewed the documentation as recorded by the Scribe (Andrei Ramirez) Provider Attestation: All medical record entries made by the Scribe were at my direction and personally dictated by me. I have reviewed the chart and agree that the record accurately reflects my personal performance of the history, physical exam, medical decision making, and the department course for this patient. I have also personally directed, reviewed, and agree with the discharge instructions and disposition.
--- NOTE | 2018-08-13 16:11 | RAD ---
Date of service: 08/13/2018 PROCEDURE: Bilateral Knee Radiographs. HISTORY: B/L KNEE PAIN AFTER FALL COMPARISON: None available. FINDINGS: BONES: Right Knee: No acute displaced fracture identified. Small suprapatellar enthesophyte. Osseous demineralization. Left Knee: No acute displaced fracture identified. Small suprapatellar enthesophyte. Osseous demineralization. JOINTS: Right Knee: Unremarkable. No dislocation. Joint space narrowing most prominent laterally. Left knee: Unremarkable. No dislocation. Joint space narrowing most prominent laterally. SOFT TISSUES: Right Knee: Unremarkable. No evidence of radiopaque foreign body. Left Knee: Unremarkable. No evidence of radiopaque foreign body. JOINT EFFUSION: Right Knee: No significant joint effusion identified. Left Knee: No significant joint effusion identified. OTHER FINDINGS: None. IMPRESSION: Degenerative changes bilaterally. Osseous demineralization.
[2018-08-13 16:22] VITALS: BP 116/67; PULSE 84; TEMP 98.3
[2018-08-13 17:58] VITALS: O2SAT 97
== END 2018-08-13 16:41 ==
LOC: C.ER 14:01
DX: S00.83XA Contusion of other part of head, initial encounter (principal); S83.92XA Sprain of unspecified site of left knee, initial encounter; S83.91XA Sprain of unspecified site of right knee, initial encounter; W05.0XXA Fall from non-moving wheelchair, initial encounter; Y92.129 Unspecified place in nursing home as the place of occurrence of the external cause

== ENCOUNTER 2018-12-01 20:52 | Observation (INO) | payer MEDICARE, MEDICAID ==
[2018-12-01 20:52] VITALS: BMI 28.3
[2018-12-01 21:24] LABS: BASO # 0.1 K/uL (0.0-0.2); BASO % 0.8 % (0.0-2.0); EOS # 0.1 K/uL (0.0-0.7); HEMOGLOBIN 11.5 g/dL (11.0-16.0); LYMPH # 0.9 K/uL (1.0-4.3); LYMPH % 12.2 % (20.0-40.0); MEAN CELL VOLUME 93.5 fL (81.0-99.0); MEAN CORPUSCULAR HEMOGLOBIN 33.2 pg (27.0-31.0); MEAN CORPUSCULAR HGB CONC 35.5 g/dL (33.0-37.0); MEAN PLATELET VOLUME 7.4 fL (7.2-11.7); MONO # 0.5 K/uL (0.0-0.8); MONO % 6.1 % (0.0-10.0); NEUT # 5.9 K/uL (1.8-7.0); NEUT % 79.9 % (50.0-75.0); RBC 3.46 Mil/uL (3.80-5.20); RED CELL DISTRIBUTION WIDTH 14.5 % (11.5-14.5); WHITE BLOOD COUNT 7.4 K/uL (4.8-10.8)
[2018-12-01 21:38] LABS: ALB/GLOB RATIO 1.5 (1.0-2.1); ALBUMIN 3.5 g/dL (3.5-5.0); ALT/SGPT 17 U/L (9-52); AST/SGOT 15 U/L (14-36); BLOOD UREA NITROGEN 16 mg/dL (7-17); GFR NON-AFRICAN AMERICAN > 60
--- NOTE | 2018-12-01 23:31 | C.PDOC ---
History Of Present Illness 68 year old female, whose past medical history includes brain tumor and epilepsy, is brought [facility] the ED [facility] for reported seizure- like activity which occurred prior to arrival. Patient states she was awake and noticed her arms were shaking. She notes this lasted for around one minute. Patient then notified the jail staff, who called EMS. Patient denies fever, chills, tongue bite, and urinary/bowel incontinence. Time Seen by Provider: 12/01/18 21:05 Chief Complaint (Nursing): Seizure History Per: Patient, EMS History/Exam Limitations: no limitations Recent Seizure Activity Began: Just Before Arrival Number Of Seizures: One Length Of Seizures (Duration): Seconds Additional History Per: Patient, EMS Past Medical History Reviewed: Historical Data, Nursing Documentation, Vital Signs Vital Signs: Last Vital Signs Temp 98.5 F 12/01/18 21:00 Pulse 79 12/01/18 23:00 Resp 18 12/01/18 23:00 BP 126/87 12/01/18 23:00 Pulse Ox 98 12/01/18 23:00 - Medical History PMH: COPD, CVA, HTN, Hyperthyroidism Denies: Depression (PRESENTLY DEPRESSED), Chronic Kidney Disease Surgical History: Coronary Stent, Tonsillectomy - [facility] Procedures ENDOSCOPIC BRONCHIAL BX (01/07/15) RESP TRACT INTUBAT NEC (01/07/15) Family History: States: Unknown Family Hx - Social History Hx Tobacco Use: Yes Hx Alcohol Use: No Hx Substance Use: No - Immunization History Hx Tetanus Toxoid Vaccination: No Hx Influenza Vaccination: No Hx Pneumococcal Vaccination: No Review Of Systems Constitutional: Negative for: Fever, Chills Genitourinary: Negative for: Incontinence Neurological: Positive for: Seizures Physical Exam - Physical Exam Appears: Non-toxic, No Acute Distress Skin: Normal Color, Warm, Dry Head: Atraumatic, Normacephalic Eye(s): bilateral: Normal Inspection Oral Mucosa: Moist Neck: Supple Chest: Symmetrical, No Deformity, No Tenderness Cardiovascular: Rhythm Regular, No Murmur Respiratory: Normal Breath Sounds, No Rales, No Rhonchi, No Wheezing Extremity: Normal ROM, Capillary Refill (less than 2 seconds ) Neurological/Psych: Oriented x3, Normal Speech, Normal Cognition ED Course And Treatment - Laboratory Results Result Diagrams: 12/01/18 21:22 02/09/19 21:22 Lab Results: Troponin I < 0.0120 ng/mL (0.00-0.120) 12/01/18 21:22 Total Bilirubin 0.4 mg/dL (0.2-1.3) 12/01/18 21:22 AST 15 U/L (14-36) 12/01/18 21:22 ALT 17 U/L (9-52) 12/01/18 21:22 Alkaline Phosphatase 52 U/L (38-126) 12/01/18 21:22 Total Protein 5.9 g/dL (6.3-8.3) L 12/01/18 21:22 Albumin 3.5 g/dL (3.5-5.0) 12/01/18 21:22 Globulin 2.4 gm/dL (2.2-3.9) 12/01/18 21:22 Albumin/Globulin Ratio 1.5 (1.0-2.1) 12/01/18 21:22 O2 Sat by Pulse Oximetry: 98 (on RA ) - CT Scan/US CT Head Other Rad Studies (CT/US): Read By Radiologist, Radiology Report Reviewed CT/US Interpretation: EXAM: CT Head without Intravenous Contrast. CLINICAL HISTORY: Seizure/h/o brain mets. TECHNIQUE: Axial computed tomography images of the head/brain without intravenous contrast. 0.00 mGy-cm. COMPARISON: None provided. FINDINGS: BRAIN. There is moderate white matter hypodensity bilaterally. There is additional white matter edema in the right frontal lobe. It is difficult to exclude underlying brain lesion. If indicated, this could be further evaluated with contrast enhanced MRI. There is focal hypodensity in the right cerebellar hemisphere which may represent encephalomalacia from old infarct. No midline shift. No evidence for acute intracranial hemorrhage. VENTRICLES: There is mild prominence of ventricles and sulci compatible with mild atrophy. The ventricles are prominent slightly out of proportion to the sulci, raising the possibility of normal pressure hydrocephalus. Please correlate clinically. ORBITS: The orbits are unremarkable. SINUSES AND MASTOIDS: The paranasal sinuses and mastoid air cells are clear. BONES: There is evidence of a prior right frontal craniotomy. SOFT TISSUES: Unremarkable. MISCELLANEOUS: No convincing evidence for acute territorial infarction. IMPRESSION: 1. There is mild prominence of ventricles and sulci compatible with mild atrophy. 2. The ventricles are prominent slightly out of proportion to the sulci, raising the possibility of normal pressure hydrocephalus. Please correlate clinically. 3. There is moderate white matter hypodensity bilaterally. There is additional white matter edema in the right frontal lobe. It is difficult to exclude underlying brain lesion. If indicated, this could be further evaluated with contrast enhanced MRI. 4. There is evidence of a prior right frontal craniotomy. 5. There is focal hypodensity in the right cerebellar hemisphere which may represent encephalomalacia from old infarct. 6. No convincing evidence for acute territorial infarction. 7. No midline shift. 8. No evidence for acute intracranial hemorrhage. Medical Decision Making Medical Decision Making: Progress: Bloodwork, urinalysis, EKG, CXR, CT Head ordered. Case discussed with Dr. Azam Molina, who will admit the patient to the medical floor under his service. Disposition - Disposition Disposition: HOSPITALIZED Disposition Time: 22:45 Condition: STABLE - Clinical Impression Clinical Impression: Seizure - Scribe Statement The provider has reviewed the documentation as recorded by the Scribe (Pamela Molina) Provider Attestation: All medical record entries made by the Scribe were at my direction and personally dictated by me. I have reviewed the chart and agree that the record accurately reflects my personal performance of the history, physical exam, medical decision making, and the department course for this patient. I have also personally directed, reviewed, and agree with the discharge instructions and disposition.
[2018-12-02] MEDS ORDERED: Simethicone 80 mg Chewtab PO PRN ×2 (01:40→02:15)
[2018-12-02] MEDS ORDERED: Magnesium Hydroxide Susp 30 ml UD PO PRN (01:40)
[2018-12-02] MEDS ORDERED: [UNRECOGNIZED DRUG - OTHER] PO PRN (01:40)
[2018-12-02] MEDS ORDERED: Naproxen 550 mg Tab PO PRN (01:40)
[2018-12-02] MEDS ORDERED: PHENYLEPHRINE PO PRN (01:40)
[2018-12-02] MEDS ORDERED: Alum-Mag Hydrox-Simethicone Susp (30 mL) PO PRN (01:40)
[2018-12-02] MEDS ORDERED: Sodium Chloride Nasal 0.65% Soln (30ml) NAS PRN (01:40)
[2018-12-02] MEDS ORDERED: ACETAMINOP PO PRN (01:40)
[2018-12-02] MEDS ORDERED: POLYETHYLENE GLYCOL 3350 17 GM/Dose PACKET PO PRN (01:40)
[2018-12-02] MEDS: Pantoprazole 40 mg EC Tab PO SCH (09:39)
[2018-12-02] MEDS ORDERED: Home Med 1 UNIT (Meloxicam [Meloxicam] 15 MG) PO SCH (10:00)
--- NOTE | 2018-12-02 10:36 | RAD ---
Date of service: 12/01/2018 HISTORY: chest pain COMPARISON: Portable chest 04/10/2018. FINDINGS: LUNGS: No active pulmonary disease. Left apical granuloma again identified. PLEURA: No significant pleural effusion identified, no pneumothorax apparent. CARDIOVASCULAR: No aortic atherosclerotic calcification present. Normal cardiac size. No pulmonary vascular congestion. OSSEOUS STRUCTURES: No significant abnormalities. VISUALIZED UPPER ABDOMEN: Normal. OTHER FINDINGS: None. IMPRESSION: No interval acute cardiopulmonary disease appreciated. Left apical granuloma reiterated.
--- NOTE | 2018-12-02 13:00 | CT ---
Date of service: 12/01/2018 PROCEDURE: CT HEAD WITHOUT CONTRAST. HISTORY: ? seizure - h/o brain tumor COMPARISON: None available. TECHNIQUE: Axial computed tomography images were obtained through the head/brain without intravenous contrast. Radiation dose: Total exam DLP = 1151.16 mGy-cm. This CT exam was performed using one or more of the following dose reduction techniques: Automated exposure control, adjustment of the mA and/or kV according to patient size, and/or use of iterative reconstruction technique. FINDINGS: HEMORRHAGE: No intracranial hemorrhage. BRAIN: Prior right frontal craniotomy with pascual holes identified once again. Hyperdense medial right frontal vertex cortex is appreciated once again but significantly smaller in volume in the interval. Vasogenic edema pattern is markedly improved as well. No midline shift is apparent or new hyperdense parenchyma. A small chronic infarct in the right cerebellum is reiterated with no evidence of new interval infarct appreciated at this time. Overall ventricular volume is slightly increased at the bilateral lateral ventricles, 3rd ventricle and 4th ventricle potentially reflection of central atrophy with mild peripheral atrophy evident. Clinically correlate. Brainstem is stable in appearance and limited chronic microangiopathy is appreciated the white matter of the cerebrum diffusely. No suspicious extra-axial collection is identified. VENTRICLES: See above. CALVARIUM: Right frontal craniotomy as discussed above. PARANASAL SINUSES: Unremarkable as visualized. No significant inflammatory changes. MASTOID AIR CELLS: Unremarkable as visualized. No inflammatory changes. OTHER FINDINGS: None. IMPRESSION: 1. Prior right frontal craniotomy reiterated however there is markedly improved vasogenic edema related to small hyperdense mass at the right frontal vertex medially, significantly diminished in size in the interval. No midline shift. No local mass effect identified grossly. 2. Borderline normal pressure hydrocephalus may be developing. Clinically correlate further. 3. Mild age-related degenerative changes are reiterated. Concordant preliminary report from [facility], 12/01/2018, 10:34 p.m..
--- NOTE | 2018-12-02 13:31 | CP.PCM.CON ---
History of Present Illness - History of Present Illness History of Present Illness: CONSULTATION DICTATED RECURRENT SEIZURE RECURRENT TUMOR / SUBTHERAPUETIC AED SEIZURE PRECAUTION INCREASE DILANTIN CHECK LEVEL EEG/MRI BRAIN ABSTINENCE SMOKING PT ONCOLOGY FOLLOW UP DVT PROPHYLAXIS Past Patient History - Infectious Disease Hx of Infectious Diseases: None - Tetanus Immunizations Tetanus Immunization: Unknown - Past Medical History & Family History Past Medical History?: Yes - Past Social History Smoking Status: Heavy Smoker > 10 Cigarettes Daily - CARDIAC Hx Hypertension: Yes - PULMONARY Hx Chronic Obstructive Pulmonary Disease (COPD): Yes - NEUROLOGICAL HX Cerebrovascular Accident: Yes (2014) - HEENT Hx HEENT Problems: Yes Other/Comment: wears eyeglasses - RENAL Hx Chronic Kidney Disease: No - ENDOCRINE/METABOLIC Hx Hyperthyroidism: Yes - HEMATOLOGICAL/ONCOLOGICAL Hx Blood Disorders: No Hx Blood Transfusions: No Hx Cancer: Yes (small cell lung cancer 2014) Hx Chemotherapy: Yes (plus radiation) - INTEGUMENTARY Hx Dermatological Problems: No - MUSCULOSKELETAL/RHEUMATOLOGICAL Hx Musculoskeletal Disorders: Yes Hx Falls: Yes Hx Unsteady Gait: Yes - GASTROINTESTINAL Hx Gastrointestinal Disorders: Yes Hx Constipation: Yes Hx Gastroesophageal Reflux: Yes (w/ esophagitis) - GENITOURINARY/GYNECOLOGICAL Hx Genitourinary Disorders: No - PSYCHIATRIC Hx Depression: No (PRESENTLY DEPRESSED) Hx Substance Use: No - SURGICAL HISTORY Hx Coronary Stent: Yes Hx Tonsillectomy: Yes - ANESTHESIA Hx Anesthesia: Yes Hx Anesthesia Reactions: No Hx Malignant Hyperthermia: No Meds Allergies/Adverse Reactions: Allergies Allergy/AdvReac Type Severity Reaction Status Date / Time FISH Allergy Verified 01/22/18 15:10 iodine Allergy Verified 01/22/18 15:10 iron Allergy Verified 01/22/18 15:10 Penicillins Allergy Verified 01/22/18 15:10 Sulfa (Sulfonamide Allergy Verified 01/22/18 15:10 Antibiotics) seafood Allergy Uncoded 08/11/17 18:53 - Medications Medications: Current Medications Acetaminophen (Tylenol 325mg Tab) 650 mg PO Q4 PRN PRN Reason: Pain, Mild (1-3) Al Hydrox/Mg Hydrox/Simethicone (Maalox Plus 30 Ml) 30 ml PO Q4H PRN PRN Reason: heartburn & indigestion Amlodipine Besylate (Norvasc) 5 mg PO DAILY [facility] Last Admin: 12/02/18 09:39 Dose: 5 mg Aspirin (Ecotrin) 81 mg PO DAILY [facility] Last Admin: 12/02/18 09:45 Dose: 81 mg Bisacodyl (Dulcolax) 10 mg [place] DAILY PRN PRN Reason: Constipation Dexamethasone (Decadron) 4 mg PO TID [facility] Last Admin: 12/02/18 09:40 Dose: 4 mg Gabapentin (Neurontin) 100 mg PO BID [facility] Last Admin: 12/02/18 09:39 Dose: 100 mg Gabapentin (Neurontin) 200 mg PO HS [facility] Home Med (Melatonin/Pyridoxine [Melatonin 5 Mg Tablet]) 1 tab PO HS [facility] Home Med (Phenylephrine/Dm/Acetaminop/Gg [Mucinex Fast-Max Cold-Flu Liq]) 20 ml PO Q6 PRN PRN Reason: Cough Lorazepam (Ativan) 0.5 mg IVP Q12H PRN PRN Reason: Seizure activity Magnesium Hydroxide (Milk Of Magnesia) 30 ml PO Q24H PRN PRN Reason: Constipation Metoclopramide HCl (Reglan) 10 mg PO Q8H PRN PRN Reason: Nausea/Vomiting Naproxen (Anaprox Ds) 550 mg PO Q12H PRN PRN Reason: Pain, moderate (4-7) Ondansetron HCl (Zofran Odt) 4 mg PO Q6H PRN PRN Reason: Nausea/Vomiting Pantoprazole Sodium (Protonix Ec Tab) 40 mg PO DAILY [facility] Last Admin: 12/02/18 09:39 Dose: 40 mg Phenytoin Sodium (Dilantin) 100 mg PO TID [facility] Polyethylene Glycol (Miralax) 17 gm PO DAILY PRN PRN Reason: Constipation Last Admin: 12/02/18 09:45 Dose: 17 gm Sennosides (Senokot Tab) 17.2 mg PO HS PRN PRN Reason: Constipation Sertraline HCl (Zoloft) 100 mg PO DAILY [facility] Last Admin: 12/02/18 09:40 Dose: 100 mg Simethicone (Mylicon Chew Tab) 80 mg PO Q8H PRN PRN Reason: Gas Pain Sodium Chloride (Aurora Baby Saline 30 Ml) 0 ml NEEL PRN PRN PRN Reason: Nasal congestion Results - Vital Signs Recent Vital Signs: Last Vital Signs Temp 98.5 F 12/02/18 08:00 Pulse 82 12/02/18 08:00 Resp 20 12/02/18 08:00 BP 98/62 L 12/02/18 08:00 Pulse Ox 96 12/02/18 08:00 - Labs Result Diagrams: 12/01/18 21:22 12/01/18 21:22 Labs: Laboratory Results - last 24 hr 12/01/18 12/01/18 12/01/18 21:02 21:22 21:22 WBC 7.4 D RBC 3.46 L Hgb 11.5 Hct 32.3 L MCV 93.5 D MCH 33.2 H MCHC 35.5 RDW 14.5 Plt Count 167 D MPV 7.4 Neut % (Auto) 79.9 H Lymph % (Auto) 12.2 L Ro[place] % (Auto) 6.1 Eos % (Auto) 1.0 Baso % (Auto) 0.8 Neut # (Auto) 5.9 Lymph # (Auto) 0.9 L [place] # (Auto) 0.5 Eos # (Auto) 0.1 Baso # (Auto) 0.1 Sodium 133 Potassium 3.9 Chloride 99 Carbon Dioxide 27 Anion Gap 11 BUN 16 Creatinine 0.7 Est GFR ( Amer) > 60 Est GFR (Non-Af Amer) > 60 POC Glucose (mg/dL) 123 H Random Glucose 116 H Calcium 9.0 Total Bilirubin 0.4 AST 15 ALT 17 Alkaline Phosphatase 52 Troponin I < 0.0120 Total Protein 5.9 L Albumin 3.5 Globulin 2.4 Albumin/Globulin Ratio 1.5
[2018-12-02 14:24] LABS: PROLACTIN 13.7 ng/mL (3.0-18.9)
--- NOTE | 2018-12-02 16:22 | CP.PCM.HP ---
Past Patient History - Infectious Disease Hx of Infectious Diseases: None - Tetanus Immunizations Tetanus Immunization: Unknown - Past Medical History & Family History Past Medical History?: Yes - Past Social History Smoking Status: Heavy Smoker > 10 Cigarettes Daily - CARDIAC Hx Hypertension: Yes - PULMONARY Hx Chronic Obstructive Pulmonary Disease (COPD): Yes - NEUROLOGICAL HX Cerebrovascular Accident: Yes (2014) - HEENT Hx HEENT Problems: Yes Other/Comment: wears eyeglasses - RENAL Hx Chronic Kidney Disease: No - ENDOCRINE/METABOLIC Hx Hyperthyroidism: Yes - HEMATOLOGICAL/ONCOLOGICAL Hx Blood Disorders: No Hx Blood Transfusions: No Hx Cancer: Yes (small cell lung cancer 2014) Hx Chemotherapy: Yes (plus radiation) - INTEGUMENTARY Hx Dermatological Problems: No - MUSCULOSKELETAL/RHEUMATOLOGICAL Hx Musculoskeletal Disorders: Yes Hx Falls: Yes Hx Unsteady Gait: Yes - GASTROINTESTINAL Hx Gastrointestinal Disorders: Yes Hx Constipation: Yes Hx Gastroesophageal Reflux: Yes (w/ esophagitis) - GENITOURINARY/GYNECOLOGICAL Hx Genitourinary Disorders: No - PSYCHIATRIC Hx Depression: No (PRESENTLY DEPRESSED) Hx Substance Use: No - SURGICAL HISTORY Hx Coronary Stent: Yes Hx Tonsillectomy: Yes - ANESTHESIA Hx Anesthesia: Yes Hx Anesthesia Reactions: No Hx Malignant Hyperthermia: No Meds Allergies/Adverse Reactions: Allergies Allergy/AdvReac Type Severity Reaction Status Date / Time FISH Allergy Verified 01/22/18 15:10 iodine Allergy Verified 01/22/18 15:10 iron Allergy Verified 01/22/18 15:10 Penicillins Allergy Verified 01/22/18 15:10 Sulfa (Sulfonamide Allergy Verified 01/22/18 15:10 Antibiotics) seafood Allergy Uncoded 08/11/17 18:53 Physical Exam - Constitutional Appears: Well - Head Exam Head Exam: ATRAUMATIC, NORMAL INSPECTION, NORMOCEPHALIC - Eye Exam Eye Exam: EOMI, Normal appearance, PERRL Pupil Exam: NORMAL ACCOMODATION, PERRL - ENT Exam ENT Exam: Mucous Membranes Moist, Normal Exam - Neck Exam Neck exam: Positive for: Normal Inspection - Respiratory Exam Respiratory Exam: Decreased Breath Sounds - Cardiovascular Exam Cardiovascular Exam: REGULAR RHYTHM, +S1, +S2 - GI/Abdominal Exam GI & Abdominal Exam: Diminished Bowel Sounds, Soft - Rectal Exam Rectal Exam: Deferred Results - Vital Signs Recent Vital Signs: Last Vital Signs Temp 97.8 F 12/02/18 15:00 Pulse 84 12/02/18 15:00 Resp 20 12/02/18 15:00 BP 106/71 12/02/18 15:00 Pulse Ox 99 12/02/18 15:00 - Labs Result Diagrams: 12/01/18 21:22 12/01/18 21:22 Labs: Laboratory Results - last 24 hr 12/01/18 12/01/18 12/01/18 21:02 21:22 21:22 WBC 7.4 D RBC 3.46 L Hgb 11.5 Hct 32.3 L MCV 93.5 D MCH 33.2 H MCHC 35.5 RDW 14.5 Plt Count 167 D MPV 7.4 Neut % (Auto) 79.9 H Lymph % (Auto) 12.2 L Swain % (Auto) 6.1 Eos % (Auto) 1.0 Baso % (Auto) 0.8 Neut # (Auto) 5.9 Lymph # (Auto) 0.9 L Sw[place] # (Auto) 0.5 Eos # (Auto) 0.1 Baso # (Auto) 0.1 Sodium 133 Potassium 3.9 Chloride 99 Carbon Dioxide 27 Anion Gap 11 BUN 16 Creatinine 0.7 Est GFR ( Amer) > 60 Est GFR (Non-Af Amer) > 60 POC Glucose (mg/dL) 123 H Random Glucose 116 H Calcium 9.0 Phosphorus Magnesium Total Bilirubin 0.4 AST 15 ALT 17 Alkaline Phosphatase 52 Troponin I < 0.0120 Total Protein 5.9 L Albumin 3.5 Globulin 2.4 Albumin/Globulin Ratio 1.5 Prolactin 12/02/18 13:52 WBC RBC Hgb Hct MCV MCH MCHC RDW Plt Count MPV Neut % (Auto) Lymph % (Auto) Swain % (Auto) Eos % (Auto) Baso % (Auto) Neut # (Auto) Lymph # (Auto) Swain # (Auto) Eos # (Auto) Baso # (Auto) Sodium Potassium Chloride Carbon Dioxide Anion Gap BUN Creatinine Est GFR ( Amer) Est GFR (Non-Af Amer) POC Glucose (mg/dL) Random Glucose Calcium Phosphorus 3.1 Magnesium 1.4 L Total Bilirubin AST ALT Alkaline Phosphatase Troponin I Total Protein Albumin Globulin Albumin/Globulin Ratio Prolactin 13.7
[2018-12-02] MEDS: Enoxaparin 40 mg Syringe SC SCH (17:42)
--- NOTE | 2018-12-02 21:48 | CON ---
DATE: 12/02/2018 ATTENDING PHYSICIAN: Cyndie Molina MD LOCATION: Room 361, bed A. REASON FOR CONSULTATION: Seizure. CHIEF COMPLAINT: The patient was having seizure as per the history, which was witnessed by herself as per the senior care notes. She was brought into [facility] for further evaluation. HISTORY OF PRESENT ILLNESS: Kourtney Jean is a 68-year-old right-handed Belarusian-speaking female came from senior care with a history of seizure activities of her whole body lasted for about 4 minutes with preceding flashing lights. The patient was brought into [facility] for further evaluation. This episode not associating with any fall from the chair or head trauma, or bowel and bladder incontinence. She had similar episodes 6 months ago and she was admitted here, been started on Keppra as per the history. PAST MEDICAL HISTORY: 40 years ago, thyroid cancer been treated with nuclear radioactive iodine. 08/2017, she was diagnosed small cell carcinoma of the lung, been treated with chemotherapy and radiation therapy. Following this during 08/2017, she did have a headache and workup showed a brain tumor and the brain tumor was debulked at [facility] by Dr. Blevins. Following surgery the patient did have a left hemiparesis. The patient also is having evidence having history of depression and peripheral neuropathy. ALLERGIES: ALLERGIC TO FISH, IODINE, IRON, PENICILLIN, SULFA. REVIEW OF SYSTEMS: 12-point system being reviewed; from neuro, recurrent seizures. MEDICATIONS: Zoloft, Zofran, Tylenol, Senokot, Reglan, Protonix, Norvasc, Neurontin, Mylicon, MiraLax, aspirin, Decadron, Dilantin. PHYSICAL EXAMINATION: VITAL SIGNS: Blood pressure 98/62, mean artery pressure of 74, respiratory rate 18, temperature 98.5, pulse rate 82 regular. NECK: Supple. No carotid bruits. HEART: Sounds regular. CHEST: Fair air entry. EXTREMITIES: No edema in legs. MENTAL STATUS EXAMINATION: She is awake, alert and orient to person, place and time. The patient is examined in the presence of her son. No sign of depression. No antegrade amnesia or retrograde amnesia. Cranial nerve examination, visual field intact. Pupils reactive to light. Extraocular movement decreased in all direction. No facial sensory deficit. Hearing is normal. Tongue is midline. Good gag. Mild facial asymmetry manifesting as flattening of the left nasolabial fold. Motor examination on outstretched hand with eyes closed, significant drift noted on the left arm. She could not able to lift her left arm against the bed. Deep tendon reflexes biceps, brachialis, triceps absent; both knees are absent; both ankles are absent. Plantars are upgoing on her both sides. Sensory examination, mild sensory motor neuropathy. Coordination: Finger-nose test is intact on the right side. Gait is deferred at this time because of the above description. Vision: 1. As per my neurological examination and on reviewing her history in the chart, the patient does have a recurrent seizures which is probably secondary to subtherapeutic dose of Dilantin. 2. The patient may have a recurrent tumor which could be the cause for her recurrent seizure as well. 3. 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 Workup CT of the head reviewed. Postsurgical changes and lucency over the right frontal region with effacement of the ventricle. Some evidence of cerebellar mass effect noted as well. EKG normal sinus rhythm. Blood workup, WBC 7.4, hemoglobin 11.5, hematocrit 32.3, platelet 167. Sodium 133, potassium 3.9, chloride of 99, bicarbonate 27, BUN 16, creatinine 0.7, GFR more than 60, glucose 123, troponin 0.0120. RECOMMENDATIONS: 1. Considering her history and her physical structure, Dilantin dose may be not right dose with dose if her dose is increased to three times a day of 300 mg per day and the level should be checked. 2. MRI of the brain with and without gadolinium to assess her brain tumor. 3. EEG. 4. Fall precaution and seizure precaution. 5. Get her out of bed and physical therapy should be initiated. 6. Oncology consult of Dr. Ana Byrne should be called in to have followup from her point of view. The patient's condition has been well discussed with her as well as her son. Paul Lorenzo MD
[2018-12-02] MEDS ORDERED: MELATONIN PO SCH (22:00)
[2018-12-02] MEDS ORDERED: PYRIDOXINE PO SCH (22:00)
--- NOTE | 2018-12-03 02:40 | CON ---
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 HISTORY OF PRESENT ILLNESS: A 68-year-old female, brought to the ER because in the residential the patient reported seizure like activity which occurred prior to arrival. The patient states she was awake and noticed her arms were shaking. She notes that this lasted for 1 minute, then notified the residential staff who called EMS. The patient denies any fever, chills, tongue bite, urinary or bowel incontinence. The patient is wheelchair bound at this time. She was recently seen in my office and has denied systemic chemotherapy in the recent past. Although previous CAT scan of the chest, abdomen, and pelvis done about 4 months ago did not show any evidence of metastatic disease. The patient was recently diagnosed with brain mets for which she underwent gamma knife as well as radiation followed by antiseizure medications. The patient is not a candidate for any further neurological or neurosurgical intervention as per radiation oncologist and neurosurgeon at [facility] [place], where the patient had received all her care. PAST MEDICAL HISTORY: Significant for COPD, CVA, hypertension, hypothyroidism, and chronic kidney disease. PAST SURGICAL HISTORY: Coronary stent, tonsillectomy. SOCIAL HISTORY: Nonsmoker, nondrinker, lives in residential. PHYSICAL EXAMINATION: VITAL SIGNS: Temperature is 98.5, blood pressure is 126/80, pulse of 80, and respirations 18. HEENT: PERRLA. No scleral icterus is seen. NECK: Supple. CHEST: Bilateral air entry is decreased. CVS: S1 and S2. Regular rate and rhythm. ABDOMEN: Soft. LABORATORY DATA: Labs show white count of 7.4, hemoglobin of 11.5, and platelets of 167. BUN of 16 and creatinine of 0.7. CAT scan of the head shows mild prominence of the ventricle, moderate white matter hypodense bilaterally, evidence of craniotomy, some white matter disease as well as a mass which is present which is actually improved from prior. ASSESSMENT AND PLAN: A 68-year-old female with metastatic small cell lung cancer with metastasis to the brain. The patient has undergone treatment for her metastatic brain disease with radiation and gamma knife in the past, now on antiseizure medication. We will get a CAT scan of the chest, abdomen, and pelvis to evaluate portosystemic disease. No further oncologic intervention at this time. The patient can follow up as outpatient for further recommendation. Ana Byrne MD
[2018-12-03] MEDS ORDERED: Gadodiamide 287 MG/ML VIAL (15ML) IV ONE (04:41)
[2018-12-03] MEDS ORDERED: Iohexol 350mg/ml 100 ML ONE (06:33)
[2018-12-03 07:24] VITALS: RESP 20
[2018-12-03] MEDS: Magnesium Oxide 400 mg Tab UD PO SCH ×2 (09:54→18:00)
[2018-12-03] MEDS: guaiFENesin 600 mg ER Tab PO PRN (09:54)
[2018-12-03] MEDS: Enoxaparin 40 mg Syringe SC SCH (09:54)
[2018-12-03] MEDS: Pantoprazole 40 mg EC Tab PO SCH (09:54)
--- NOTE | 2018-12-03 12:36 | PN ---
DATE: 12/03/2018 TIME OF EVALUATION: 07:05 a.m. NEUROLOGICAL PROBLEM: Recurrent seizures due to recurrent brain tumor. PHYSICAL EXAMINATION: VITAL SIGNS: Blood pressure 107/62, mean artery pressure of 77, respiratory rate 18, pulse rate 77, regular with temperature of 98.3. The patient is sleepy, arousable. She slept good. Denies any new complaints. She feels comfortable. Examination which is unchanged compared with my yesterday's examination of left hemiparesis, leg more than her arm. The patient is requested to have MRI of the brain. The patient also is continuing Dilantin 300 mg per day and Dilantin level is requested for today and the other requested procedures are on progress including MRI of the brain and electroencephalogram. Her workup, Dilantin level was 12 this morning. Prolactin was 13.7 with magnesium 1.4, needs supplementation. The patient will be followed closely with you. Paul Lorenzo MD
--- NOTE | 2018-12-03 14:08 | CT ---
Date of service:12/03/2018 CT chest, abdomen, and pelvis without IV contrast Indication: lung cancer with metastases Technique: Contiguous axial images of the chest, abdomen, and pelvis without oral or IV contrast. Coronal and Sagittal reformats generated and reviewed. This CT exam was performed using 1 or more of the following dose reduction techniques: Automated exposure control, adjustment of the MAA and/or kV according to patient size, and/or use of iterative reconstruction technique. Radiation dose: Total exam DLP = 936.94 MGy-cm. Comparison: CT chest without IV contrast performed 03/26/15, CT abdomen and pelvis without contrast performed 01/09/20 Findings: Heterogeneous appearance of the included portions inferior thyroid gland with bilateral probable hypodense nodules. The unenhanced mediastinal and hilar vascular structures appear within grossly unremarkable. The heart appears within normal limits of size. Coronary artery calcifications. Atherosclerotic calcifications of the aorta 7 mm left upper lobe calcified granuloma. No focal consolidation. No pleural effusion. No pneumothorax. The noncontrast noncontrast liver, spleen, kidneys, pancreas, adrenal glands, and gallbladder appear grossly unremarkable. Mild infrarenal abdominal aortic aneurysm measures approximately 2.2 x 2.3 x 2.8 cm (AP by transverse by CC dimensions). Atherosclerotic calcifications of the aorta and branches. The stomach is nondistended. Lack of oral contrast limits evaluation for bowel pathology. The bowel loops appear within normal limits of caliber without evidence of intestinal obstruction. Asymmetric posterior anal rectal wall thickening. There is no definite free air. Uterus is present. IUD. The urinary bladder appears unremarkable. Osseous demineralization. Degenerative changes. Impression: Heterogeneous appearance of the included portions inferior thyroid gland with bilateral probable hypodense nodules. Asymmetric posterior anal rectal wall thickening. Recommend clinical correlation including direct visualization. Mild infrarenal abdominal aortic aneurysm measures approximately 2.2 x 2.3 x 2.8 cm (AP by transverse by CC dimensions). Atherosclerotic calcifications of the aorta and branches. IUD.
--- NOTE | 2018-12-03 14:09 | CP.PCM.CON ---
History of Present Illness - History of Present Illness History of Present Illness: Palliative consult requested by TRENT Molina MD for goals of care and symptoms management Patient is a 86 yo female admitted from [place] where patient noted seizures like activities and called the nurse. She noted shaking of the arms that lasted up to 1 min . There was no LOC . EMS called. CT head in ED was negative acute findings but did suggest decrease in size of right frontal hyperdense mass. Doctor Bj ordered new dose of Dilantin and blood work for Dilantin level. Patient was admitted for observation. No new seizure activities on this admission. Patient said her last seizure was about 6 months ago. PMH: Brain tumor, gamma knife Sx Aug 2018, epilepsy, CVA, COPD, non ambulatory ever since the brain Sx Soc. Hx: [place] resident, has son and the daughter, planing on relocating to [facility] to live with one of her children Fam. Hx: denied Review of Systems - Constitutional Constitutional: absent: As Per HPI, Anorexia, Chills, Daytime Sleepiness, Excess salty Sweating, Fatigue, Fever, Frequent Falls, Headache, Increased Appetite, Lethargy, Malaise, Night Sweats, Snoring, Sleep Apnea, Weight Gain, Weight Loss, Weakness, Other - EENT Eyes: absent: As Per HPI, Blind Spots, Blurred Vision, Change in Vision, Decreased Night Vision, Diplopia, Discharge, Dry Eye, Exophthalmos, Floaters, Irritation, Itchy Eyes, Loss of Peripheral Vision, Pain, Photophobia, Requires Corrective Lenses, Sees Flashes, Spots in Vision, Tunnel Vision, Other Visual Disturbances, Loss of Vision, Other Ears: absent: As Per HPI, Decreased Hearing, Ear Discharge, Ear Pain, Tinnitus, Abnormal Hearing, Disequilibrium, Dizziness, Other Nose/Mouth/Throat: absent: As Per HPI, Epistaxis, Nasal Congestion, Nasal Discharge, Nasal Obstruction, Nasal Trauma, Nose Pain, Post Nasal Drip, Sinus Pain, Sinus Pressure, Bleeding Gums, Change in Voice, Dental Pain, Dry Mouth, Dysphagia, Halitosis, Hoarsness, Lip Swelling, Mouth Lesions, Mouth Pain, Odynophagia, Sore Throat, Throat Swelling, Tongue Swelling, Facial Pain, Neck Pain, Neck Mass, Other - Breasts Breasts: absent: As Per HPI, Change in Shape, Mass, Pain, Nipple Discharge, Nipple Inversion, Skin Changes, Swelling, Other - Cardiovascular Cardiovascular: absent: As Per HPI, Acrocyanosis, Chest Pain, Chest Pain at Rest, Chest Pain with Activity, Claudication, Diaphoresis, Dyspnea, Dyspnea on Exertion, Edema, Irregular Heart Rhythm, Pain Radiating to Arm/Neck/Jaw, Leg Edema, Leg Ulcers, Lightheadedness, Orthopnea, Palpitations, Paroxysmal Nocturnal Dyspnea, Pedal Edema, Radiating Pain, Rapid Heart Rate, Slow Heart Rate, Syncope, Other - Respiratory Respiratory: absent: As Per HPI, Cough, Dyspnea, Hemoptysis, Dyspnea on Exertion, Wheezing, Snoring, Stridor, Pain on Inspiration, Chest Congestion, Excessive Mucous Production, Change in Mucous Color, Pain with Coughing, Other - Gastrointestinal Additional comments: decreased appetite - Reproductive: Female Reproductive:Female: Post Menopausal - Menstruation Menstruation: Post Menopausal - Musculoskeletal Additional comments: weakness to LE, R > L - Neurological Neurological: Abnormal Gait Additional comments: seizure like activities - Psychiatric Psychiatric: absent: As Per HPI, Abnormal Sleep Pattern, Anhedonia, Anxiety, Auditory Hallucinations, Behavioral Changes, Change in Appetite, Change in Libido, Confusion, Depression, Difficulty Concentrating, Hallucinations, Homicidal Ideation, Hopelessness, Irritability, Memory Loss, Mood Swings, Panic Attacks, Paranoia, Suicidal Ideation, Visual Hallucinations, Tactile Hallucinations, Other - Endocrine Endocrine: absent: As Per HPI, Change in Body Appearance, Change in Libido, Cold Intolorance, Deepening of Voice, Excessive Sweating, Fatigue, Flushing, Heat Intolorance, Increase in Ring/Shoe/Hat Size, Palpitations, Polydipsia, Polyphagia, Polyuria, Other - Hematologic/Lymphatic Hematologic: Easy Bleeding Past Patient History - Infectious Disease Hx of Infectious Diseases: None - Tetanus Immunizations Tetanus Immunization: Unknown - Past Medical History & Family History Past Medical History?: Yes - Past Social History Smoking Status: Heavy Smoker > 10 Cigarettes Daily - CARDIAC Hx Hypertension: Yes - PULMONARY Hx Chronic Obstructive Pulmonary Disease (COPD): Yes - NEUROLOGICAL HX Cerebrovascular Accident: Yes (2014) - HEENT Hx HEENT Problems: Yes Other/Comment: wears eyeglasses - RENAL Hx Chronic Kidney Disease: No - ENDOCRINE/METABOLIC Hx Hyperthyroidism: Yes - HEMATOLOGICAL/ONCOLOGICAL Hx Blood Disorders: No Hx Blood Transfusions: No Hx Cancer: Yes (small cell lung cancer 2014) Hx Chemotherapy: Yes (plus radiation) - INTEGUMENTARY Hx Dermatological Problems: No - MUSCULOSKELETAL/RHEUMATOLOGICAL Hx Musculoskeletal Disorders: Yes Hx Falls: Yes Hx Unsteady Gait: Yes - GASTROINTESTINAL Hx Gastrointestinal Disorders: Yes Hx Constipation: Yes Hx Gastroesophageal Reflux: Yes (w/ esophagitis) - GENITOURINARY/GYNECOLOGICAL Hx Genitourinary Disorders: No - PSYCHIATRIC Hx Depression: No (PRESENTLY DEPRESSED) Hx Substance Use: No - SURGICAL HISTORY Hx Coronary Stent: Yes Hx Tonsillectomy: Yes - ANESTHESIA Hx Anesthesia: Yes Hx Anesthesia Reactions: No Hx Malignant Hyperthermia: No Meds Allergies/Adverse Reactions: Allergies Allergy/AdvReac Type Severity Reaction Status Date / Time FISH Allergy Verified 01/22/18 15:10 iodine Allergy Verified 01/22/18 15:10 iron Allergy Verified 01/22/18 15:10 Penicillins Allergy Verified 01/22/18 15:10 Sulfa (Sulfonamide Allergy Verified 01/22/18 15:10 Antibiotics) seafood Allergy Uncoded 08/11/17 18:53 - Medications Medications: Current Medications Acetaminophen (Tylenol 325mg Tab) 650 mg PO Q4 PRN PRN Reason: Pain, Mild (1-3) Al Hydrox/Mg Hydrox/Simethicone (Maalox Plus 30 Ml) 30 ml PO Q4H PRN PRN Reason: heartburn & indigestion Amlodipine Besylate (Norvasc) 5 mg PO DAILY [facility] Last Admin: 12/03/18 09:54 Dose: 5 mg Aspirin (Ecotrin) 81 mg PO DAILY [facility] Last Admin: 12/03/18 09:54 Dose: 81 mg Bisacodyl (Dulcolax) 10 mg DE DAILY PRN PRN Reason: Constipation Dexamethasone (Decadron) 4 mg PO TID [facility] Last Admin: 12/03/18 13:15 Dose: 4 mg Enoxaparin Sodium (Lovenox) 40 mg SC DAILY [facility] Last Admin: 12/03/18 09:54 Dose: 40 mg Gabapentin (Neurontin) 100 mg PO BID [facility] Last Admin: 12/03/18 09:54 Dose: 100 mg Gabapentin (Neurontin) 200 mg PO HS [facility] Last Admin: 12/02/18 21:54 Dose: 200 mg Guaifenesin (Mucinex La) 600 mg PO BID PRN PRN Reason: congestion Last Admin: 12/03/18 09:54 Dose: 600 mg Lorazepam (Ativan) 0.5 mg IVP Q12H PRN PRN Reason: Seizure activity Magnesium Oxide (Mag-Ox) 400 mg PO BID [facility] Last Admin: 12/03/18 09:54 Dose: 400 mg Metoclopramide HCl (Reglan) 10 mg PO Q8H PRN PRN Reason: Nausea/Vomiting Naproxen (Anaprox Ds) 550 mg PO Q12H PRN PRN Reason: Pain, moderate (4-7) Last Admin: 12/02/18 19:22 Dose: 550 mg Ondansetron HCl (Zofran Odt) 4 mg PO Q6H PRN PRN Reason: Nausea/Vomiting Pantoprazole Sodium (Protonix Ec Tab) 40 mg PO DAILY [facility] Last Admin: 12/03/18 09:54 Dose: 40 mg Phenytoin Sodium (Dilantin) 100 mg PO TID [facility] Last Admin: 12/03/18 13:15 Dose: 100 mg Polyethylene Glycol (Miralax) 17 gm PO DAILY PRN PRN Reason: Constipation Last Admin: 12/02/18 09:45 Dose: 17 gm Sennosides (Senokot Tab) 17.2 mg PO HS PRN PRN Reason: Constipation Sertraline HCl (Zoloft) 100 mg PO DAILY [facility] Last Admin: 12/03/18 10:03 Dose: 100 mg Simethicone (Mylicon Chew Tab) 80 mg PO Q8H PRN PRN Reason: Gas Pain Sodium Chloride (Felt Baby Saline 30 Ml) 0 ml NEEL PRN PRN PRN Reason: Nasal congestion Physical Exam - Constitutional Appears: Chronically Ill - Head Exam Additional comments: S/P brain tumor Sx, hair loss - Eye Exam Eye Exam: EOMI, Normal appearance, PERRL Pupil Exam: NORMAL ACCOMODATION, PERRL - ENT Exam ENT Exam: Mucous Membranes Moist, Normal Exam - Neck Exam Neck exam: Positive for: Normal Inspection - Respiratory Exam Respiratory Exam: Clear to Auscultation Bilateral, NORMAL BREATHING PATTERN - Cardiovascular Exam Cardiovascular Exam: REGULAR RHYTHM - GI/Abdominal Exam GI & Abdominal Exam: Normal Bowel Sounds, Soft - Rectal Exam Rectal Exam: Deferred - Extremities Exam Additional comments: Decreased ROM, Rleg weaker than L. Non ambulatory - Back Exam Back exam: NORMAL INSPECTION - Neurological Exam Neurological exam: Alert, Oriented x3 - Psychiatric Exam Psychiatric exam: Normal Affect, Normal Mood - Skin Skin Exam: Dry, Normal Color, Petechiae, Warm Results - Vital Signs Recent Vital Signs: Last Vital Signs Temp 97.9 F 12/03/18 07:21 Pulse 74 12/03/18 07:21 Resp 20 12/03/18 07:21 BP 117/77 12/03/18 07:21 Pulse Ox 100 12/03/18 07:21 - Labs Result Diagrams: 12/01/18 21:22 12/01/18 21:22 Labs: Laboratory Results - last 24 hr 12/02/18 12/03/18 13:52 06:43 Phosphorus 3.1 Magnesium 1.4 L Prolactin 13.7 Phenytoin 12.0 Assessment & Plan - Assessment and Plan (Free Text) Assessment: Palliative consult DNR/DNI, POLST on chart, PPS 40% I reviewed all Medical records and diagnostic studies, examined and interviewed patient in the bed Patient is alert, oriented X 3 , very pleasant lady with noticeable positive attitude. Physical exam reveals symptoms of chronic disease, but no acute distress. Skin is dry and intact with a lot of petechias to both arms due to blood thinners. patient is on daily Lovenox, ASA and Decadron. Patient is hairless , post radiations and Chemo Tx. Denies headache, dizziness, double vision at this time. Denies new seizures activities since admission. Breathing is normal with regular RR and no cough. Abdomen soft. Patient uses either bedpan or diapers as she is non ambulatory. Last BM 12/03/18, patient is on stool softeners and laxatives. Patient has limited ROM to LEs; she is able to reposition on her own, but for OOB she needs max assistance and WC. Pedal pulses present, there is no edema. BP 117/77, O2Sat 100 %, afebrile. WBC 7.4, Hb 11.5, Mg 1.4. Patient is on Mag Ox Tb BID. Goals of care discussed with patient. She has no acute complains except that her appetite is poor as she does not like hospital's food nor the food at the [place]. Patient stated, she would take Ensure if ordered. I further discussed her feelings about being dependent of care and unable to walk. Patient said she understands that those are consequences of brain tumor and tries to cope with. She denies feelings of depression. Medical records shows Zoloft 100 mg daily and Ativan PO PRN. Patient is planning on moving to [place] where on of her children lives and to stay there. She is working on transferring her Medicare benefices and needs more help from SS. Code status clarified. Patient had a Copy of POLST on chart from the [place]. Patient stated she wished to remain DNR/DNI. patient alsostated that she values quality of life over longevity and wants only ordinary measures including needed surgeries, to support her life. If her condition becomes terminal, she would not want to have CPR or intubation done, to prolong her life. Patient is looking forward returning to [facility] and hopefully soon move to [place]. Impression * S/P brain surgery * New, seizure like activity, no LOC * Unsteady gait, bed ridden * Body image disturbances * Decreased appetite due to hospital/retirement , food dislike * Social issues related to planned relocation to [place] * Wishes to remain DNR/DNI Suggestions * Promote safety, monitor for any seizure activities * Assist OOB to chair daily * Assist with bed harp * Dietary consult, * SS to assist patient with her needs regarding relocation of her medicare benefices to [place] * DNR/DNI * Discharge planing to [place] Palliative care will sign off at this time. Advance care planing 46 min
--- NOTE | 2018-12-03 14:12 | CARD ---
APPROVED REPORT Date of service: 12/01/2018 EKG Measurement Heart [id number] <Conclusion> Normal sinus rhythm Normal ECG
--- NOTE | 2018-12-03 14:50 | CP.PCM.PN ---
Subjective - Date & Time of Evaluation Date of Evaluation: 12/03/18 Time of Evaluation: 08:30 - Subjective Subjective: clinically same Objective - Vital Signs/Intake and Output Vital Signs (last 24 hours): Temp Pulse Resp BP Pulse Ox 97.9 F 74 20 117/77 100 12/03/18 07:21 12/03/18 07:21 12/03/18 07:21 12/03/18 07:21 12/03/18 07:21 Intake and Output: 12/03/18 12/03/18 06:59 18:59 Intake Total 420 Balance 420 - Medications Medications: Current Medications Acetaminophen (Tylenol 325mg Tab) 650 mg PO Q4 PRN PRN Reason: Pain, Mild (1-3) Al Hydrox/Mg Hydrox/Simethicone (Maalox Plus 30 Ml) 30 ml PO Q4H PRN PRN Reason: heartburn & indigestion Amlodipine Besylate (Norvasc) 5 mg PO DAILY [facility] Last Admin: 12/03/18 09:54 Dose: 5 mg Aspirin (Ecotrin) 81 mg PO DAILY [facility] Last Admin: 12/03/18 09:54 Dose: 81 mg Bisacodyl (Dulcolax) 10 mg ND DAILY PRN PRN Reason: Constipation Dexamethasone (Decadron) 4 mg PO TID [facility] Last Admin: 12/03/18 13:15 Dose: 4 mg Enoxaparin Sodium (Lovenox) 40 mg SC DAILY [facility] Last Admin: 12/03/18 09:54 Dose: 40 mg Gabapentin (Neurontin) 100 mg PO BID [facility] Last Admin: 12/03/18 09:54 Dose: 100 mg Gabapentin (Neurontin) 200 mg PO HS [facility] Last Admin: 12/02/18 21:54 Dose: 200 mg Guaifenesin (Mucinex La) 600 mg PO BID PRN PRN Reason: congestion Last Admin: 12/03/18 09:54 Dose: 600 mg Lorazepam (Ativan) 0.5 mg IVP Q12H PRN PRN Reason: Seizure activity Magnesium Oxide (Mag-Ox) 400 mg PO BID [facility] Last Admin: 12/03/18 09:54 Dose: 400 mg Metoclopramide HCl (Reglan) 10 mg PO Q8H PRN PRN Reason: Nausea/Vomiting Naproxen (Anaprox Ds) 550 mg PO Q12H PRN PRN Reason: Pain, moderate (4-7) Last Admin: 12/02/18 19:22 Dose: 550 mg Ondansetron HCl (Zofran Odt) 4 mg PO Q6H PRN PRN Reason: Nausea/Vomiting Pantoprazole Sodium (Protonix Ec Tab) 40 mg PO DAILY [facility] Last Admin: 12/03/18 09:54 Dose: 40 mg Phenytoin Sodium (Dilantin) 100 mg PO TID [facility] Last Admin: 12/03/18 13:15 Dose: 100 mg Polyethylene Glycol (Miralax) 17 gm PO DAILY PRN PRN Reason: Constipation Last Admin: 12/02/18 09:45 Dose: 17 gm Sennosides (Senokot Tab) 17.2 mg PO [facility] Sertraline HCl (Zoloft) 100 mg PO DAILY [facility] Last Admin: 12/03/18 10:03 Dose: 100 mg Simethicone (Mylicon Chew Tab) 80 mg PO Q8H PRN PRN Reason: Gas Pain Sodium Chloride ([place] Baby Saline 30 Ml) 0 ml NEEL PRN PRN PRN Reason: Nasal congestion - Labs Labs: 12/01/18 21:22 12/01/18 21:22 - Constitutional Appears: Well - Head Exam Head Exam: ATRAUMATIC, NORMAL INSPECTION, NORMOCEPHALIC - Eye Exam Eye Exam: EOMI, Normal appearance, PERRL Pupil Exam: NORMAL ACCOMODATION, PERRL - ENT Exam ENT Exam: Mucous Membranes Moist, Normal Exam - Neck Exam Neck Exam: Full ROM, Normal Inspection. absent: Lymphadenopathy - Respiratory Exam Respiratory Exam: Decreased Breath Sounds - Cardiovascular Exam Cardiovascular Exam: REGULAR RHYTHM, +S1, +S2 - GI/Abdominal Exam GI & Abdominal Exam: Soft, Diminished Bowel Sounds - Rectal Exam Rectal Exam: Deferred
--- NOTE | 2018-12-03 17:30 | MRI ---
Date of service: 12/03/2018 PROCEDURE: MRI BRAIN WITH AND WITHOUT CONTRAST HISTORY: post crani - brain tumor COMPARISON: Noncontrast head CT 12/01/2018, unenhanced brain MRI 04/11/2018. TECHNIQUE: Multiplanar, multisequence MR images of the brain were obtained with and without intravenous contrast enhancement. FINDINGS: HEMORRHAGE: None DWI: No evidence of an acute or early subacute infarction. BRAIN PARENCHYMA: 1.5 x 2.2 x 2.9 cm irregularly enhancing mass is seen likely dural-based at the right frontal vertex posteriorly somewhat smaller in size compared to the prior MRI without contrast but with extensive vasogenic edema again seen affecting the right frontal lobe. White-matter changes are diffusely increased throughout the upper cerebrum in a pattern that could reflect post radiation change. Prior craniotomy is again identified with overall pattern likely reflecting residual tumor, potentially a malignant meningioma although metastatic or other right frontal parenchymal malignancy is a possibility as well. No additional abnormal intracranial enhancement identified. No midline shift. Loss of sulcation of the right frontal vertex sulci again evident. Otherwise, diffuse cerebral atrophy chronic microangiopathy are again identified including the phyllis. A small infarct of the right cerebellum is seen inferolaterally once again as well. VENTRICLES: Unremarkable. No hydrocephalus. CRANIUM: Unremarkable. ORBITS: Grossly unremarkable. PARANASAL SINUSES/MASTOIDS: Clear VASCULAR SYSTEM: Skull base flow voids intact. OTHER FINDINGS: None . IMPRESSION: Irregularly enhancing 2.9 cm mass abutting the right side of the falx in the frontal vertex posteriorly likely reflects either an aggressive meningioma or right frontal parenchymal malignancy with extensive related vasogenic edema causing loss is local sulcation. No midline shift. The lesion does not appear increased in transverse or AP measurement compared to the prior MRI. Lack images contrast limits definition of the lesion in the prior exam is sagittal imaging, and size comparison is limited. Otherwise, small right infarct reiterated right cerebellum. Age-related neuro degenerative changes are reiterated.
[2018-12-04 06:59] LABS: SQUAMOUS EPITHIAL < 1 /hpf (0-5); URINE BACTERIA OCC (<OCC)
[2018-12-04 07:17] LABS: PH,URINE 7.5 (5.0-8.0); URINE BILIRUBIN NEGATIVE (NEGATIVE); URINE BLOOD NEGATIVE (NEGATIVE); URINE CLARITY Clear (Clear); URINE COLOR YELLOW (YELLOW); URINE GLUCOSE (UA) NEGATIVE (Normal); URINE PROTEIN NEGATIVE (NEGATIVE)
[2018-12-04 07:18] LABS: URINE LEUKOCYTE ESTERASE SMALL Leu/uL (Negative); URINE UROBILINOGEN 0.2 mg/dL (0.2-1.0)
[2018-12-04] MEDS: guaiFENesin 600 mg ER Tab PO PRN ×2 (09:28→17:50)
[2018-12-04] MEDS: Magnesium Oxide 400 mg Tab UD PO SCH ×2 (09:28→17:50)
[2018-12-04] MEDS: Pantoprazole 40 mg EC Tab PO SCH (09:28)
[2018-12-04] MEDS: Enoxaparin 40 mg Syringe SC SCH (09:28)
--- NOTE | 2018-12-04 09:42 | PN ---
DATE: 12/04/2018 TIME OF EVALUATION: 07:05 a.m. NEUROLOGICAL PROBLEM: Seizures secondary to her intracranial pathology. VITAL SIGNS: Blood pressure 101/67, mean artery pressure of 78, respiratory rate 18, temperature 98.1, pulse rate 77. The patient is arousable on calling her name. She feels good. No seizures while she is in the hospital. She feels normal. Her examination which is unchanged too compared with the previous examination. The patient was seen by her own oncologist, Dr. Byrne. As per her notes, the patient did have radiation to the brain and gamma knife treatment in the past. 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 The patient also showed evidence of craniotomy on his right side. The patient also showed some evidence of ischemic process in the cerebellum. No other mass noted. BLOOD WORKUP: WBC 7.4, hemoglobin 11.5, hematocrit 32.3, platelet 167. GFR more than 60, prolactin 13.7. Phenytoin level was 12. RECOMMENDATION: 1. At this point, continue the steroids to bring down vasogenic edema. 2. Continue Dilantin 300 mg per day. Her EEG is being reviewed, showed right parietotemporal face reversal activities consistent with epileptiform focus. If medically stable, the patient can be discharged and follow up with oncologist and neurologist. Paul Lorenzo MD
--- NOTE | 2018-12-04 12:18 | CP.PCM.PN ---
Subjective - Date & Time of Evaluation Date of Evaluation: 12/04/18 Time of Evaluation: 08:30 - Subjective Subjective: clinically same Objective - Vital Signs/Intake and Output Vital Signs (last 24 hours): Temp Pulse Resp BP Pulse Ox 97.4 F L 74 20 119/79 96 12/04/18 07:53 12/04/18 07:53 12/04/18 07:53 12/04/18 07:53 12/04/18 07:53 Intake and Output: 12/04/18 12/04/18 06:59 18:59 Intake Total 450 Output Total 250 Balance 200 - Medications Medications: Current Medications Acetaminophen (Tylenol 325mg Tab) 650 mg PO Q4 PRN PRN Reason: Pain, Mild (1-3) Al Hydrox/Mg Hydrox/Simethicone (Maalox Plus 30 Ml) 30 ml PO Q4H PRN PRN Reason: heartburn & indigestion Amlodipine Besylate (Norvasc) 5 mg PO DAILY [facility] Last Admin: 12/04/18 09:28 Dose: 5 mg Aspirin (Ecotrin) 81 mg PO DAILY [facility] Last Admin: 12/04/18 09:28 Dose: 81 mg Bisacodyl (Dulcolax) 10 mg [place] DAILY PRN PRN Reason: Constipation Dexamethasone (Decadron) 4 mg PO TID [facility] Last Admin: 12/04/18 09:28 Dose: 4 mg Enoxaparin Sodium (Lovenox) 40 mg SC DAILY [facility] Last Admin: 12/04/18 09:28 Dose: 40 mg Gabapentin (Neurontin) 100 mg PO BID [facility] Last Admin: 12/04/18 09:28 Dose: 100 mg Gabapentin (Neurontin) 200 mg PO HS [facility] Last Admin: 12/03/18 22:16 Dose: 200 mg Guaifenesin (Mucinex La) 600 mg PO BID PRN PRN Reason: congestion Last Admin: 12/04/18 09:28 Dose: 600 mg Lorazepam (Ativan) 0.5 mg IVP Q12H PRN PRN Reason: Seizure activity Magnesium Oxide (Mag-Ox) 400 mg PO BID [facility] Last Admin: 12/04/18 09:28 Dose: 400 mg Metoclopramide HCl (Reglan) 10 mg PO Q8H PRN PRN Reason: Nausea/Vomiting Naproxen (Anaprox Ds) 550 mg PO Q12H PRN PRN Reason: Pain, moderate (4-7) Last Admin: 12/02/18 19:22 Dose: 550 mg Ondansetron HCl (Zofran Odt) 4 mg PO Q6H PRN PRN Reason: Nausea/Vomiting Pantoprazole Sodium (Protonix Ec Tab) 40 mg PO DAILY [facility] Last Admin: 12/04/18 09:28 Dose: 40 mg Phenytoin Sodium (Dilantin) 100 mg PO TID [facility] Last Admin: 12/04/18 09:28 Dose: 100 mg Polyethylene Glycol (Miralax) 17 gm PO DAILY PRN PRN Reason: Constipation Last Admin: 12/02/18 09:45 Dose: 17 gm Sennosides (Senokot Tab) 17.2 mg PO HS [facility] Last Admin: 12/03/18 22:16 Dose: 17.2 mg Sertraline HCl (Zoloft) 100 mg PO DAILY [facility] Last Admin: 12/04/18 09:33 Dose: 100 mg Simethicone (Mylicon Chew Tab) 80 mg PO Q8H PRN PRN Reason: Gas Pain Sodium Chloride ([place] Baby Saline 30 Ml) 0 ml NEEL PRN PRN PRN Reason: Nasal congestion - Labs Labs: 12/01/18 21:22 12/01/18 21:22 - Constitutional Appears: Well - Head Exam Head Exam: ATRAUMATIC, NORMAL INSPECTION, NORMOCEPHALIC - Eye Exam Eye Exam: EOMI, Normal appearance, PERRL Pupil Exam: NORMAL ACCOMODATION, PERRL - ENT Exam ENT Exam: Mucous Membranes Moist, Normal Exam - Neck Exam Neck Exam: Full ROM, Normal Inspection. absent: Lymphadenopathy - Respiratory Exam Respiratory Exam: Decreased Breath Sounds - Cardiovascular Exam Cardiovascular Exam: REGULAR RHYTHM, +S1, +S2 - GI/Abdominal Exam GI & Abdominal Exam: Soft, Diminished Bowel Sounds - Rectal Exam Rectal Exam: Deferred
[2018-12-05 08:38] VITALS: PULSE 84
--- NOTE | 2018-12-05 09:43 | EEG ---
DATE: 12/03/2018 This is a 16-channel electroencephalogram of awake and drowsy adult. During the study, photic stimulation was performed. Hyperventilation was not performed. The resting electroencephalogram consists of high amplitude 9 to 11 Hz alpha activity seen at parietal and occipital leads and this is a normal predominant posterior rhythm with eyes closed. This followed with a high amplitude delta activity seen consistent with early drowsiness. The photic stimulation did not evoke driving response noted at 2 to 20 Hz. IMPRESSION: This is a normal electroencephalogram of an awake and drowsy adult. Before finishing the activities, there is phase reversal activities noted at right temporal leads consistent with epileptiform focus. Please correlate the findings with the neurological and radiological studies. Paul Lorenzo MD MTDDonna
[2018-12-05] MEDS: Pantoprazole 40 mg EC Tab PO SCH (09:49)
[2018-12-05] MEDS: Magnesium Oxide 400 mg Tab UD PO SCH ×2 (09:50→17:25)
[2018-12-05] MEDS: Enoxaparin 40 mg Syringe SC SCH (09:53)
--- NOTE | 2018-12-05 14:31 | CP.PCM.PN ---
Subjective - Date & Time of Evaluation Date of Evaluation: 12/05/18 Time of Evaluation: 07:45 - Subjective Subjective: clinically same Objective - Vital Signs/Intake and Output Vital Signs (last 24 hours): Temp Pulse Resp BP Pulse Ox 98.7 F 84 20 123/81 95 12/05/18 07:00 12/05/18 07:00 12/05/18 07:00 12/05/18 07:00 12/05/18 09:06 Intake and Output: 12/05/18 12/05/18 06:59 18:59 Intake Total 490 Output Total 2200 Balance -1710 - Medications Medications: Current Medications Acetaminophen (Tylenol 325mg Tab) 650 mg PO Q4 PRN PRN Reason: Pain, Mild (1-3) Al Hydrox/Mg Hydrox/Simethicone (Maalox Plus 30 Ml) 30 ml PO Q4H PRN PRN Reason: heartburn & indigestion Amlodipine Besylate (Norvasc) 5 mg PO DAILY [facility] Last Admin: 12/05/18 09:49 Dose: 5 mg Aspirin (Ecotrin) 81 mg PO DAILY [facility] Last Admin: 12/05/18 09:49 Dose: 81 mg Bisacodyl (Dulcolax) 10 mg [place] DAILY PRN PRN Reason: Constipation Dexamethasone (Decadron) 4 mg PO TID [facility] Last Admin: 12/05/18 13:17 Dose: 4 mg Enoxaparin Sodium (Lovenox) 40 mg SC DAILY [facility] Last Admin: 12/05/18 09:53 Dose: 40 mg Gabapentin (Neurontin) 100 mg PO BID [facility] Last Admin: 12/05/18 09:50 Dose: 100 mg Gabapentin (Neurontin) 200 mg PO HS [facility] Last Admin: 12/04/18 21:28 Dose: 200 mg Guaifenesin (Mucinex La) 600 mg PO BID PRN PRN Reason: congestion Last Admin: 12/04/18 17:50 Dose: 600 mg Lorazepam (Ativan) 0.5 mg IVP Q12H PRN PRN Reason: Seizure activity Magnesium Oxide (Mag-Ox) 400 mg PO BID [facility] Last Admin: 12/05/18 09:50 Dose: 400 mg Metoclopramide HCl (Reglan) 10 mg PO Q8H PRN PRN Reason: Nausea/Vomiting Naproxen (Anaprox Ds) 550 mg PO Q12H PRN PRN Reason: Pain, moderate (4-7) Last Admin: 12/02/18 19:22 Dose: 550 mg Ondansetron HCl (Zofran Odt) 4 mg PO Q6H PRN PRN Reason: Nausea/Vomiting Pantoprazole Sodium (Protonix Ec Tab) 40 mg PO DAILY [facility] Last Admin: 12/05/18 09:49 Dose: 40 mg Phenytoin Sodium (Dilantin) 100 mg PO TID [facility] Last Admin: 12/05/18 13:17 Dose: 100 mg Polyethylene Glycol (Miralax) 17 gm PO DAILY PRN PRN Reason: Constipation Last Admin: 12/02/18 09:45 Dose: 17 gm Sennosides (Senokot Tab) 17.2 mg PO HS [facility] Last Admin: 12/04/18 21:28 Dose: 17.2 mg Sertraline HCl (Zoloft) 100 mg PO DAILY [facility] Last Admin: 12/05/18 09:50 Dose: 100 mg Simethicone (Mylicon Chew Tab) 80 mg PO Q8H PRN PRN Reason: Gas Pain Sodium Chloride ([place] Baby Saline 30 Ml) 0 ml NEEL PRN PRN PRN Reason: Nasal congestion - Labs Labs: 12/01/18 21:22 12/01/18 21:22 - Constitutional Appears: Well - Head Exam Head Exam: ATRAUMATIC, NORMAL INSPECTION, NORMOCEPHALIC - Eye Exam Eye Exam: EOMI, Normal appearance, PERRL Pupil Exam: NORMAL ACCOMODATION, PERRL - ENT Exam ENT Exam: Mucous Membranes Moist, Normal Exam - Neck Exam Neck Exam: Full ROM, Normal Inspection. absent: Lymphadenopathy - Respiratory Exam Respiratory Exam: Decreased Breath Sounds - Cardiovascular Exam Cardiovascular Exam: REGULAR RHYTHM, +S1, +S2 - GI/Abdominal Exam GI & Abdominal Exam: Soft, Diminished Bowel Sounds - Rectal Exam Rectal Exam: Deferred
[2018-12-05 16:43] VITALS: BP 107/72; TEMP 97.8
--- NOTE | 2018-12-05 17:26 | CP.PCM.PN ---
Subjective - Date & Time of Evaluation Date of Evaluation: 12/05/18 Time of Evaluation: 17:26 - Subjective Subjective: alert, oriented, no sob or chest pains, NAD. Objective - Vital Signs/Intake and Output Vital Signs (last 24 hours): Temp Pulse Resp BP Pulse Ox 97.8 F 84 20 107/72 96 12/05/18 16:00 12/05/18 16:00 12/05/18 16:00 12/05/18 16:00 12/05/18 16:00 Intake and Output: 12/05/18 12/05/18 06:59 18:59 Intake Total 490 Output Total 2200 Balance -1710 - Medications Medications: Current Medications Acetaminophen (Tylenol 325mg Tab) 650 mg PO Q4 PRN PRN Reason: Pain, Mild (1-3) Al Hydrox/Mg Hydrox/Simethicone (Maalox Plus 30 Ml) 30 ml PO Q4H PRN PRN Reason: heartburn & indigestion Amlodipine Besylate (Norvasc) 5 mg PO DAILY [facility] Last Admin: 12/05/18 09:49 Dose: 5 mg Aspirin (Ecotrin) 81 mg PO DAILY [facility] Last Admin: 12/05/18 09:49 Dose: 81 mg Bisacodyl (Dulcolax) 10 mg [place] DAILY PRN PRN Reason: Constipation Dexamethasone (Decadron) 4 mg PO TID [facility] Last Admin: 12/05/18 13:17 Dose: 4 mg Enoxaparin Sodium (Lovenox) 40 mg SC DAILY [facility] Last Admin: 12/05/18 09:53 Dose: 40 mg Gabapentin (Neurontin) 100 mg PO BID [facility] Last Admin: 12/05/18 09:50 Dose: 100 mg Gabapentin (Neurontin) 200 mg PO HS [facility] Last Admin: 12/04/18 21:28 Dose: 200 mg Guaifenesin (Mucinex La) 600 mg PO BID PRN PRN Reason: congestion Last Admin: 12/04/18 17:50 Dose: 600 mg Lorazepam (Ativan) 0.5 mg IVP Q12H PRN PRN Reason: Seizure activity Magnesium Oxide (Mag-Ox) 400 mg PO BID [facility] Last Admin: 12/05/18 09:50 Dose: 400 mg Metoclopramide HCl (Reglan) 10 mg PO Q8H PRN PRN Reason: Nausea/Vomiting Naproxen (Anaprox Ds) 550 mg PO Q12H PRN PRN Reason: Pain, moderate (4-7) Last Admin: 12/02/18 19:22 Dose: 550 mg Ondansetron HCl (Zofran Odt) 4 mg PO Q6H PRN PRN Reason: Nausea/Vomiting Pantoprazole Sodium (Protonix Ec Tab) 40 mg PO DAILY [facility] Last Admin: 12/05/18 09:49 Dose: 40 mg Phenytoin Sodium (Dilantin) 100 mg PO TID [facility] Last Admin: 12/05/18 13:17 Dose: 100 mg Polyethylene Glycol (Miralax) 17 gm PO DAILY PRN PRN Reason: Constipation Last Admin: 12/02/18 09:45 Dose: 17 gm Sennosides (Senokot Tab) 17.2 mg PO HS [facility] Last Admin: 12/04/18 21:28 Dose: 17.2 mg Sertraline HCl (Zoloft) 100 mg PO DAILY [facility] Last Admin: 12/05/18 09:50 Dose: 100 mg Simethicone (Mylicon Chew Tab) 80 mg PO Q8H PRN PRN Reason: Gas Pain Sodium Chloride ([place] Baby Saline 30 Ml) 0 ml NEEL PRN PRN PRN Reason: Nasal congestion - Labs Labs: 12/01/18 21:22 12/01/18 21:22 Assessment and Plan - Assessment and Plan (Free Text) Assessment: 68 year old female admitted with possible seizure activity, seen and examined. Alert and oriented, says feeling much better, no sob or chest pains. Cleared by DR Byrne and DR Lorenzo, plan to discharge her back to the [facility] as per DR Azam Molina. Started on oral cipro for possible UTI, will follow up on the final report in am.
[2018-12-06 13:09] VITALS: O2SAT 98
== END 2018-12-05 22:00 ==
LOC: C.ER 20:52 → C.6T 22:47 → C.9E 22:56 → C.3T 22:59
PROVIDERS: ADMIT Internal Medicine Nephrology; ATTEND Internal Medicine Nephrology
DX: G40.909 Epilepsy, unspecified, not intractable, without status epilepticus (principal); J44.9 Chronic obstructive pulmonary disease, unspecified; C34.90 Malignant neoplasm of unspecified part of unspecified bronchus or lung; C79.31 Secondary malignant neoplasm of brain; E03.9 Hypothyroidism, unspecified; I12.9 Hypertensive chronic kidney disease with stage 1 through stage 4 chronic kidney disease, or unspecified chronic kidney disease; N18.9 Chronic kidney disease, unspecified; G81.94 Hemiplegia, unspecified affecting left nondominant side; Z51.5 Encounter for palliative care; Z66 Do not resuscitate; Z79.02 Long term (current) use of antithrombotics/antiplatelets; Z85.850 Personal history of malignant neoplasm of thyroid; Z86.73 Personal history of transient ischemic attack (TIA), and cerebral infarction without residual deficits; F17.210 Nicotine dependence, cigarettes, uncomplicated; Z92.21 Personal history of antineoplastic chemotherapy; Z92.3 Personal history of irradiation; Z95.5 Presence of coronary angioplasty implant and graft; Z99.3 Dependence on wheelchair
CPT/HCPCS: 36415; 70450; 70553; 71045; 71250; 74176; 80053; 80177; 80185; 81001; 82330; 82948; 83735; 84100; 84146; 84484; 85025; 87086; 87181; 93005; 95812; 96372; 97162; 97530; 99285; A9579; G0378; G8978; G8979; J1650; J8540; Q9967

== ENCOUNTER 2019-01-03 10:12 | Inpatient (IN) | payer MEDICARE, MEDICAID ==
[2019-01-03 10:13] VITALS: BMI 28.3
[2019-01-03] MEDS ORDERED: Sodium Chloride 0.9% 500 ML IV ONE ×2 (10:36→12:15)
[2019-01-03 11:05] LABS: EOS # 0.1 K/uL (0.0-0.7); LYMPH # 1.2 K/uL (1.0-4.3); MONO # 0.3 K/uL (0.0-0.8)
[2019-01-03 11:16] LABS: BASO # 0.1 K/uL (0.0-0.2); BASO % 0.7 % (0.0-2.0); EOS % 1.9 % (0.0-4.0); LYMPH % 15.5 % (20.0-40.0); MEAN CELL VOLUME 94.3 fL (81.0-99.0); MEAN CORPUSCULAR HEMOGLOBIN 31.9 pg (27.0-31.0); MEAN CORPUSCULAR HGB CONC 33.9 g/dL (33.0-37.0); MEAN PLATELET VOLUME 8.2 fL (7.2-11.7); MONO % 4.5 % (0.0-10.0); NEUT # 5.9 K/uL (1.8-7.0); NEUT % 77.4 % (50.0-75.0); NRBC % 0.4 % (0.0-2.0); RBC 4.09 Mil/uL (3.80-5.20); RED CELL DISTRIBUTION WIDTH 13.6 % (11.5-14.5); WHITE BLOOD COUNT 7.7 K/uL (4.8-10.8)
[2019-01-03 11:25] LABS: BLOOD UREA NITROGEN 11 mg/dL (7-17); CALCIUM 9.3 mg/dl (8.6-10.4); GFR NON-AFRICAN AMERICAN > 60
[2019-01-03 11:26] LABS: ALB/GLOB RATIO 1.3 (1.0-2.1); ALBUMIN 3.8 g/dL (3.5-5.0); ALT/SGPT 24 U/L (9-52); AST/SGOT 34 U/L (14-36)
--- NOTE | 2019-01-03 11:34 | PCM.RRT ---
<JadenToyin - Last Filed: 01/03/19 17:55> HEAD FIELD HOCKEY COACH Nurses Assessment - Situation Date: 01/03/19 Time HEAD FIELD HOCKEY COACH was called: 11:05 HEAD FIELD HOCKEY COACH Location:: CT HEAD FIELD HOCKEY COACH Reason for Call: Change in Mental Status HEAD FIELD HOCKEY COACH Called By: Other Disciplines - IV IV Inserted during HEAD FIELD HOCKEY COACH?: No - Respiratory HEAD FIELD HOCKEY COACH Delivery Method: Room Air CPR started during HEAD FIELD HOCKEY COACH?: No - Vital Signs Vital Signs: T 99.2 HR 101 BP 147/93 RR 16 O2 98% RA - Maxime Coma Scale Coma Scale Eye Opening: To pain Coma Scale Motor: Movement to pain stimulus Coma Scale Verbal: No response Coma Scale Total: 8 - Recommendations 5) HEAD FIELD HOC[employer] COACH Level of Care Recommendations: Discharge to Emergency Room I.Reason for HEAD FIELD HOCKEY COACH - A) Acute Change in Patient: (Select all that apply): Acute change in mental status - Neurological Status (Select all that apply): Lethargic - Respiratory Oxygen Delivery Method: Room Air - Head Head Exam: ATRAUMATIC, NORMAL INSPECTION, NORMOCEPHALIC - Eyes Additional Comments: unable to assess - Respiratory Exam Respiratory Exam: NORMAL BREATHING PATTERN. absent: Respiratory Distress - Cardiovascular Exam Cardiovascular Exam: REGULAR RHYTHM, +S1, +S2 - GI/Abdominal Exam GI & Abdominal Exam: Soft, Normal Bowel Sounds - Neurological Exam Neurological Exam: Altered Additional exam: Responsive to deep sternal rub - Extremities Exam Extremities Exam: Normal Inspection Plan - Assessment of Findings&Treatment Plan HEAD FIELD HOCKEY COACH called by refrigeration technician after patient became unresponsive following exam. Patient only minimally responsive to deep sternal rub. Patient examined and in stable condition Sent to ED for evaluation <Abby Perez V - Last Filed: 01/09/19 05:23> Attending/Attestation - Attestation Notes (Text): this is late computer entry for 01/03/19. HEAD FIELD HOCKEY COACH called by tech for unresponsive. Patient came from the ED, underwent CT head, following completion tech noted patient was unresponsive to sternal rub. Discussed with ED nurse Kristen, patient had seizure downstairs prior to coming up and was medicated with ativan. Patient noted to have malignancy including to the brain. Vital signs are stable. Patient transported back to the emergency room for workup. Noted DNR per the RN.
[2019-01-03 11:59] LABS: URINE BACTERIA RARE (<OCC); URINE BILIRUBIN NEGATIVE (NEGATIVE); URINE BLOOD 1+ (NEGATIVE); URINE CLARITY Clear (Clear); URINE COLOR Yellow (YELLOW); URINE GLUCOSE (UA) NORMAL (Normal); URINE LEUKOCYTE ESTERASE NEG Leu/uL (Negative); URINE PROTEIN NEGATIVE (NEGATIVE); URINE UROBILINOGEN NORMAL mg/dL (0.2-1.0)
--- NOTE | 2019-01-03 12:05 | CT ---
Date of service: 01/03/2019 PROCEDURE: CT HEAD WITHOUT CONTRAST. HISTORY: seizure, h/o brain mass COMPARISON: None available. TECHNIQUE: Axial computed tomography images were obtained through the head/brain without intravenous contrast. Radiation dose: Total exam DLP = 1069.47 mGy-cm. This CT exam was performed using one or more of the following dose reduction techniques: Automated exposure control, adjustment of the mA and/or kV according to patient size, and/or use of iterative reconstruction technique. FINDINGS: HEMORRHAGE: No intracranial hemorrhage. BRAIN: Status post right lateral frontal craniotomy with postoperative changes in the high right frontal lobe with the vasogenic edema throughout the right edgar radiata extending into the centrum semiovale. Additional periventricular white matter hypodensity. Right cerebellar cortical defect likely an old infarct. VENTRICLES: Unremarkable. No hydrocephalus. CALVARIUM: Unremarkable. PARANASAL SINUSES: Unremarkable as visualized. No significant inflammatory changes. MASTOID AIR CELLS: Unremarkable as visualized. No inflammatory changes. OTHER FINDINGS: None. IMPRESSION: Status post right lateral frontal craniotomy with postoperative changes in the high right frontal lobe with the vasogenic edema throughout the right edgar radiata extending into the centrum semiovale. Additional periventricular white matter hypodensity. Right cerebellar cortical defect likely an old infarct.
--- NOTE | 2019-01-03 12:34 | C.PDOC ---
History Of Present Illness Patient NEMO from [facility] for evaluation after witnessed tonic/clonic seizure, was given Ativan 2mg IV in the field. Patient arrives to ED drowsy and nonverbal. PMHx of lung CA with brain mets, crainiotomy, cerebral edema, COPD, depression, hemiplegia, HTN, GERD. Patient is DNR/DNI as per [facility] records. Time Seen by Provider: 01/03/19 10:26 Chief Complaint (Nursing): Seizure History Per: EMS History/Exam Limitations: clinical condition Number Of Seizures: Multiple (2) Quality Of Seizure: Generalized Precipitating Factor(s): Other (lung CA with brain mets + cerebral edema ) Past Medical History Reviewed: Historical Data, Nursing Documentation, Vital Signs Vital Signs: Last Vital Signs Temp 99.3 F 01/03/19 10:29 Pulse 101 H 01/03/19 11:15 Resp 16 01/03/19 11:15 BP 147/93 H 01/03/19 11:15 Pulse Ox 98 01/03/19 11:15 - Medical History PMH: COPD, CVA, HTN, Hyperthyroidism Surgical History: Coronary Stent, Tonsillectomy - [facility] Procedures ENDOSCOPIC BRONCHIAL BX (01/07/15) RESP TRACT INTUBAT NEC (01/07/15) Family History: States: No Known Family Hx - Social History Hx Tobacco Use: Yes Hx Alcohol Use: No Hx Substance Use: No - Immunization History Hx Tetanus Toxoid Vaccination: No Hx Influenza Vaccination: No Hx Pneumococcal Vaccination: No Review Of Systems Review Of Systems: ROS cannot be obtained secondary to pt's inabilty to answer questions. Physical Exam - Physical Exam Appears: Chronically Ill, Other (noverbal, drowsy appearing) Skin: Warm, Dry, Ecchymosis (multiple ecchmoses B/L arms) Eye(s): bilateral: Other ((+) hortizontal nystagmus, pupils dilated B/L, left eye reactive, right eye fixed) Oral Mucosa: Moist Cardiovascular: Rhythm Regular (tachycardic ) Respiratory: Normal Breath Sounds, No Rales, No Rhonchi, No Wheezing Gastrointestinal/Abdominal: Normal Exam, Bowel Sounds, Soft, No Tenderness Extremity: No Deformity, No Swelling Extremity: Bilateral: Normal Color And Temperature, Normal ROM ED Course And Treatment - Laboratory Results Result Diagrams: 01/03/19 10:59 01/03/19 10:59 Lab Results: Total Bilirubin 1.0 mg/dL (0.2-1.3) 01/03/19 10:59 AST 34 U/L (14-36) 01/03/19 10:59 ALT 24 U/L (9-52) 01/03/19 10:59 Alkaline Phosphatase 73 U/L (38-126) 01/03/19 10:59 Total Protein 6.7 g/dL (6.3-8.3) 01/03/19 10:59 Albumin 3.8 g/dL (3.5-5.0) 01/03/19 10:59 Globulin 2.8 gm/dL (2.2-3.9) 01/03/19 10:59 Albumin/Globulin Ratio 1.3 (1.0-2.1) 01/03/19 10:59 Urine Color Yellow (YELLOW) 01/03/19 11:50 Urine Clarity Clear (Clear) 01/03/19 11:50 Urine pH 5.0 (5.0-8.0) 01/03/19 11:50 Ur Specific [place] 1.012 (1.003-1.030) 01/03/19 11:50 Urine Protein Negative mg/dL (NEGATIVE) 01/03/19 11:50 Urine Glucose (UA) Normal mg/dL (Normal) 01/03/19 11:50 Urine Ketones Negative mg/dL (NEGATIVE) 01/03/19 11:50 Urine Blood 1+ (NEGATIVE) H 01/03/19 11:50 Urine Nitrate Negative (NEGATIVE) 01/03/19 11:50 Urine Bilirubin Negative (NEGATIVE) 01/03/19 11:50 Urine Urobilinogen Normal mg/dL (0.2-1.0) 01/03/19 11:50 Ur Leukocyte Esterase Neg Анна/uL (Negative) 01/03/19 11:50 Urine WBC (Auto) 2 /hpf (0-5) 01/03/19 11:50 Urine RBC (Auto) 6 /hpf (0-3) H 01/03/19 11:50 Urine Bacteria Rare (<OCC) 01/03/19 11:50 O2 Sat by Pulse Oximetry: 98 Progress Note: Blood work, CT head, EKG, UA ordered and reviewed. IV solumedrol ordered for vasogenic edema of brain. 12:40- Patient's daughter is at bedside, states patient is typically more awake and alert, able to speak to her. Patient currently drowsy but arousable to verbal stimuli. 12:[address] Lorenzo (patient's neurologist). Office staff states that Dr. Lorenzo is not in office today and Dr. Fleming is covering. 12:56 Dr. Fleming called, states that he will be covering Dr. Lorenzo starting tomorrow and recommends calling neurologist eight section blower. 1:10pm- Discussed patient with eight section blower neuro Dr. Magana, recommends IV solumedrol and adding IV Keppra. Block Bolter Mule Operator Marcus at PMD's request, he will eval patient. Disposition - Disposition Forms: [employer] (Setswana)
--- NOTE | 2019-01-03 13:46 | CP.PCM.CON ---
History of Present Illness - History of Present Illness History of Present Illness: ICU Consult Note for Dr. eVlazquez This is a 68 year old female with PMHx lung CA with brain mets, crainiotomy, cerebral edema, seizures, COPD, depression, hemiplegia, HTN, GERD who was brought to the ED from the half-way for evaluation following a witnessed seizure. Patient was given Ativan 2mg IV in the field. Reason for ICU consult was for seizure, vasogenic edema. Pt currently DNR/DNI status. CT head shows right lateral frontal craniotomy with postoperative changes in the high right frontal lobe with the vasogenic edema throughout the right edgar radiata extending into the centrum semiovale. Per pt's daughter at bedside, pt is less responsive than usual. Daughter last spoke to the pt over the phone yesterday, at which time pt seemed to be at her baseline. Reported that pt's last seizure was 12/01/2018 and prior to that, over 6 months ago. ROS of pt unobtainable due to pt's current mental status. PMhx: as noted above PSurgHx: per chart review gamma knife sx Aug 2018 Allergies: Fish, iodine, iron, PCN, Sulfa, seafood Current meds: reviewed as per DEC Fam hx: denied Soc hx: resident at half-way currently Review of Systems - Review of Systems Systems not reviewed;Unavailable: Altered Mental Status Past Patient History - Infectious Disease Hx of Infectious Diseases: None - Tetanus Immunizations Tetanus Immunization: Unknown - Past Medical History & Family History Past Medical History?: Yes - Past Social History Smoking Status: Heavy Smoker > 10 Cigarettes Daily - CARDIAC Hx Hypertension: Yes - PULMONARY Hx Chronic Obstructive Pulmonary Disease (COPD): Yes - NEUROLOGICAL HX Cerebrovascular Accident: Yes (2014) - HEENT Hx HEENT Problems: Yes Other/Comment: wears eyeglasses - RENAL Hx Chronic Kidney Disease: No - ENDOCRINE/METABOLIC Hx Hyperthyroidism: Yes - HEMATOLOGICAL/ONCOLOGICAL Hx Blood Disorders: No Hx Blood Transfusions: No Hx Cancer: Yes (small cell lung cancer 2014) Hx Chemotherapy: Yes (plus radiation) - INTEGUMENTARY Hx Dermatological Problems: No - MUSCULOSKELETAL/RHEUMATOLOGICAL Hx Musculoskeletal Disorders: Yes Hx Falls: Yes Hx Unsteady Gait: Yes - GASTROINTESTINAL Hx Gastrointestinal Disorders: Yes Hx Constipation: Yes Hx Gastroesophageal Reflux: Yes (w/ esophagitis) - GENITOURINARY/GYNECOLOGICAL Hx Genitourinary Disorders: No - PSYCHIATRIC Hx Substance Use: No - SURGICAL HISTORY Hx Coronary Stent: Yes Hx Tonsillectomy: Yes - ANESTHESIA Hx Anesthesia: Yes Hx Anesthesia Reactions: No Hx Malignant Hyperthermia: No Meds Allergies/Adverse Reactions: Allergies Allergy/AdvReac Type Severity Reaction Status Date / Time FISH Allergy Verified 01/03/19 10:34 iodine Allergy Verified 01/03/19 10:34 iron Allergy Verified 01/03/19 10:34 Penicillins Allergy Verified 01/03/19 10:34 Sulfa (Sulfonamide Allergy Verified 01/03/19 10:34 Antibiotics) seafood Allergy Uncoded 08/11/17 18:53 Physical Exam - Constitutional Appears: No Acute Distress, Chronically Ill - Head Exam Head Exam: ATRAUMATIC, NORMOCEPHALIC - Eye Exam Eye Exam: EOMI, Normal appearance, PERRL - ENT Exam ENT Exam: Mucous Membranes Moist - Respiratory Exam Respiratory Exam: Clear to Auscultation Bilateral, NORMAL BREATHING PATTERN. absent: Rales, Rhonchi, Wheezes - Cardiovascular Exam Cardiovascular Exam: REGULAR RHYTHM, +S1, +S2. absent: Gallop, Rubs, Systolic Murmur - GI/Abdominal Exam GI & Abdominal Exam: Normal Bowel Sounds, Soft. absent: Distended, Organo megaly, Tenderness - Extremities Exam Extremities exam: Positive for: normal capillary refill, pedal pulses present. Negative for: joint swelling - Neurological Exam Neurological exam: Alert, CN II-XII Intact, Oriented x3 - Skin Skin Exam: Dry, Intact, Warm Results - Vital Signs Recent Vital Signs: Last Vital Signs Temp 99.3 F 01/03/19 10:29 Pulse 101 H 01/03/19 11:15 Resp 16 01/03/19 11:15 BP 147/93 H 01/03/19 11:15 Pulse Ox 98 01/03/19 13:13 - Labs Result Diagrams: 01/03/19 10:59 01/03/19 10:59 Labs: Laboratory Results - last 24 hr 01/03/19 01/03/19 01/03/19 10:25 10:59 10:59 WBC 7.7 RBC 4.09 Hgb 13.0 Hct 38.5 MCV 94.3 MCH 31.9 H MCHC 33.9 RDW 13.6 Plt Count 181 MPV 8.2 Neut % (Auto) 77.4 H Lymph % (Auto) 15.5 L [place] % (Auto) 4.5 Eos % (Auto) 1.9 Baso % (Auto) 0.7 Neut # (Auto) 5.9 Lymph # (Auto) 1.2 [place] # (Auto) 0.3 Eos # (Auto) 0.1 Baso # (Auto) 0.1 Sodium 133 Potassium 3.6 Chloride 98 Carbon Dioxide 25 Anion Gap 13 BUN 11 Creatinine 0.5 L Est GFR ( Amer) > 60 Est GFR (Non-Af Amer) > 60 POC Glucose (mg/dL) 120 H Random Glucose 119 H Calcium 9.3 Total Bilirubin 1.0 AST 34 ALT 24 Alkaline Phosphatase 73 Total Creatine Kinase 31 Total Protein 6.7 Albumin 3.8 Globulin 2.8 Albumin/Globulin Ratio 1.3 Urine Color Urine Clarity Urine pH Ur Specific [place] Urine Protein Urine Glucose (UA) Urine Ketones Urine Blood Urine Nitrate Urine Bilirubin Urine Urobilinogen Ur Leukocyte Esterase Urine WBC (Auto) Urine RBC (Auto) Urine Bacteria Phenytoin 01/03/19 01/03/19 10:59 11:50 WBC RBC Hgb Hct MCV MCH MCHC RDW Plt Count MPV Neut % (Auto) Lymph % (Auto) [place] % (Auto) Eos % (Auto) Baso % (Auto) Neut # (Auto) Lymph # (Auto) [place] # (Auto) Eos # (Auto) Baso # (Auto) Sodium Potassium Chloride Carbon Dioxide Anion Gap BUN Creatinine Est GFR ( Amer) Est GFR (Non-Af Amer) POC Glucose (mg/dL) Random Glucose Calcium Total Bilirubin AST ALT Alkaline Phosphatase Total Creatine Kinase Total Protein Albumin Globulin Albumin/Globulin Ratio Urine Color Yellow Urine Clarity Clear Urine pH 5.0 Ur Specific [place] 1.012 Urine Protein Negative Urine Glucose (UA) Normal Urine Ketones Negative Urine Blood 1+ H Urine Nitrate Negative Urine Bilirubin Negative Urine Urobilinogen Normal Ur Leukocyte Esterase Neg Urine WBC (Auto) 2 Urine RBC (Auto) 6 H Urine Bacteria Rare Phenytoin 15.3 Assessment & Plan - Assessment and Plan (Free Text) Assessment: This is a 68 year old female with PMHx lung CA with brain mets, crainiotomy, cerebral edema, seizures, COPD, depression, hemiplegia, HTN, GERD who was brought to the ED from the half-way for evaluation following a witnessed seizure. Reason for ICU consult was for seizure, vasogenic edema. Plan: -Metastatic lung ca with brain mets No intervention as per neurosurgery at this time Recommend palliative care consult -Seizure CT head shows right lateral frontal craniotomy with postoperative changes in the high right frontal lobe with the vasogenic edema throughout the right edgar radiata extending into the centrum semiovale. Neurology consult for further medical management Dispo: Pt does not meet criteria for admission to ICU at this time. Further recommendations as per primary team and consultants. Pt seen, examined with, and plan discussed with Dr. Velazquez, attending physician. David Parra DO PGY-1, Medical/Surgery Registered Nurse Pager #[phone]
--- NOTE | 2019-01-03 15:19 | RAD ---
Date of service: 01/03/2019 PROCEDURE: CHEST RADIOGRAPH, 1 VIEW HISTORY: seizure COMPARISON: Of 12/01/2018 and the 12/28/2014 FINDINGS: LUNGS: No consolidation. A sub cm left upper lobe nodule compatible with a granuloma which is also unchanged with the 2014 study. Lung volumes lower limits of normal. PLEURA: No pneumothorax or pleural fluid seen. CARDIOVASCULAR: There is presence of aortic atherosclerotic calcification on x-ray. Probable top-normal heart size. The prior paratracheal soft tissue fullness on the 12/28/2014 study much less conspicuous on this exam. The bilateral paratracheal soft tissue thickening and/or widening present on a 04/10/2018 study is also slightly less conspicuous on this exam-slight changes on the current study compared with this 04/10/2018 study however can also be due to technical differences. OSSEOUS STRUCTURES: Bilateral shoulder arthrosis. VISUALIZED UPPER ABDOMEN: Normal. OTHER FINDINGS: None. IMPRESSION: No interval pulmonary infiltrates seen. No acute interval cardiopulmonary pathology appreciated. The superior paratracheal mediastinal fullness is slightly less conspicuous with the 04/10/2018 study. The superior right paratracheal soft tissue density referenced on the 12/28/2014 study is much less conspicuous on this exam. Correlate clinically with any known prior pathologies here and/or prior treatments here. No interval worsening mediastinal pathology suggested.
--- NOTE | 2019-01-03 16:06 | CP.PCM.CON ---
History of Present Illness - History of Present Illness History of Present Illness: Consult note for Dr. Magana. 68 year old female with PMHx lung CA with brain mets, crainiotomy, cerebral edema, seizures, COPD, depression, hemiplegia, HTN, GERD who was brought [facility] the ED from the shelter for evaluation following a witnessed seizure. Patient was given Ativan 2mg IV in the field. As per daughter at bedside, patient is less responsive than usual. Daughter last spoke to the patient over the phone yesterday, at which time patient seemed to be at her baseline. Daughter states patient's last seizure was 12/01/2018 and prior to that her last seizure was over [address] head shows right lateral frontal craniotomy with postoperative changes in the high right frontal lobe with the vasogenic edema throughout the right edgar radiata extending into the centrum semiovale. Unable to obtain ROS due to clinical condition. Review of Systems - Review of Systems Systems not reviewed;Unavailable: Other (clinical condition) Past Patient History - Infectious Disease Hx of Infectious Diseases: None - Tetanus Immunizations Tetanus Immunization: Unknown - Past Medical History & Family History Past Medical History?: Yes - Past Social History Smoking Status: Heavy Smoker > 10 Cigarettes Daily - CARDIAC Hx Hypertension: Yes - PULMONARY Hx Chronic Obstructive Pulmonary Disease (COPD): Yes - NEUROLOGICAL HX Cerebrovascular Accident: Yes (2014) - HEENT Hx HEENT Problems: Yes Other/Comment: wears eyeglasses - RENAL Hx Chronic Kidney Disease: No - ENDOCRINE/METABOLIC Hx Hyperthyroidism: Yes - HEMATOLOGICAL/ONCOLOGICAL Hx Blood Disorders: No Hx Blood Transfusions: No Hx Cancer: Yes (small cell lung cancer 2014) Hx Chemotherapy: Yes (plus radiation) - INTEGUMENTARY Hx Dermatological Problems: No - MUSCULOSKELETAL/RHEUMATOLOGICAL Hx Musculoskeletal Disorders: Yes Hx Falls: Yes Hx Unsteady Gait: Yes - GASTROINTESTINAL Hx Gastrointestinal Disorders: Yes Hx Constipation: Yes Hx Gastroesophageal Reflux: Yes (w/ esophagitis) - GENITOURINARY/GYNECOLOGICAL Hx Genitourinary Disorders: No - PSYCHIATRIC Hx Substance Use: No - SURGICAL HISTORY Hx Coronary Stent: Yes Hx Tonsillectomy: Yes - ANESTHESIA Hx Anesthesia: Yes Hx Anesthesia Reactions: No Hx Malignant Hyperthermia: No Meds Allergies/Adverse Reactions: Allergies Allergy/AdvReac Type Severity Reaction Status Date / Time FISH Allergy Verified 01/03/19 10:34 iodine Allergy Verified 01/03/19 10:34 iron Allergy Verified 01/03/19 10:34 Penicillins Allergy Verified 01/03/19 10:34 Sulfa (Sulfonamide Allergy Verified 01/03/19 10:34 Antibiotics) seafood Allergy Uncoded 08/11/17 18:53 Physical Exam - Constitutional Appears: Non-toxic, No Acute Distress - Head Exam Additional comments: old craniotomy scar - Eye Exam Eye Exam: EOMI, Normal appearance, PERRL - ENT Exam ENT Exam: Mucous Membranes Moist - Neck Exam Neck exam: Positive for: Normal Inspection - Respiratory Exam Respiratory Exam: NORMAL BREATHING PATTERN. absent: Respiratory Distress - Extremities Exam Extremities exam: Positive for: normal inspection Additional comments: Moves RUE and RLE. - Neurological Exam Additional comments: Awake. Answering questions and follows most commands. Not actively seizing. No facial asymmetry. Moves RUE and RLE only, paralysis of LUE and LLE. - Skin Additional comments: ecchymoses to L arm, otherwise normal. Results - Vital Signs Recent Vital Signs: Last Vital Signs Temp 99.3 F 01/03/19 10:29 Pulse 103 H 01/03/19 15:30 Resp 16 01/03/19 15:30 BP 154/87 H 01/03/19 15:30 Pulse Ox 97 01/03/19 15:30 - Labs Result Diagrams: 01/03/19 10:59 01/03/19 10:59 Labs: Laboratory Results - last 24 hr 01/03/19 01/03/19 01/03/19 10:25 10:59 10:59 WBC 7.7 RBC 4.09 Hgb 13.0 Hct 38.5 MCV 94.3 MCH 31.9 H MCHC 33.9 RDW 13.6 Plt Count 181 MPV 8.2 Neut % (Auto) 77.4 H Lymph % (Auto) 15.5 L [place] % (Auto) 4.5 Eos % (Auto) 1.9 Baso % (Auto) 0.7 Neut # (Auto) 5.9 Lymph # (Auto) 1.2 [place] # (Auto) 0.3 Eos # (Auto) 0.1 Baso # (Auto) 0.1 Sodium 133 Potassium 3.6 Chloride 98 Carbon Dioxide 25 Anion Gap 13 BUN 11 Creatinine 0.5 L Est GFR ( Amer) > 60 Est GFR (Non-Af Amer) > 60 POC Glucose (mg/dL) 120 H Random Glucose 119 H Calcium 9.3 Total Bilirubin 1.0 AST 34 ALT 24 Alkaline Phosphatase 73 Total Creatine Kinase 31 Total Protein 6.7 Albumin 3.8 Globulin 2.8 Albumin/Globulin Ratio 1.3 Urine Color Urine Clarity Urine pH Ur Specific [place] Urine Protein Urine Glucose (UA) Urine Ketones Urine Blood Urine Nitrate Urine Bilirubin Urine Urobilinogen Ur Leukocyte Esterase Urine WBC (Auto) Urine RBC (Auto) Urine Bacteria Phenytoin 01/03/19 01/03/19 10:59 11:50 WBC RBC Hgb Hct MCV MCH MCHC RDW Plt Count MPV Neut % (Auto) Lymph % (Auto) [place] % (Auto) Eos % (Auto) Baso % (Auto) Neut # (Auto) Lymph # (Auto) [place] # (Auto) Eos # (Auto) Baso # (Auto) Sodium Potassium Chloride Carbon Dioxide Anion Gap BUN Creatinine Est GFR ( Amer) Est GFR (Non-Af Amer) POC Glucose (mg/dL) Random Glucose Calcium Total Bilirubin AST ALT Alkaline Phosphatase Total Creatine Kinase Total Protein Albumin Globulin Albumin/Globulin Ratio Urine Color Yellow Urine Clarity Clear Urine pH 5.0 Ur Specific [place] 1.012 Urine Protein Negative Urine Glucose (UA) Normal Urine Ketones Negative Urine Blood 1+ H Urine Nitrate Negative Urine Bilirubin Negative Urine Urobilinogen Normal Ur Leukocyte Esterase Neg Urine WBC (Auto) 2 Urine RBC (Auto) 6 H Urine Bacteria Rare Phenytoin 15.3 Assessment & Plan - Assessment and Plan (Free Text) Assessment: 68 year old female PMHx of lung CA with brain mets, crainiotomy, and seizures presents with seizure Plan: Head CT-Status post right lateral frontal craniotomy with postoperative changes in the high right frontal lobe with the vasogenic edema throughout the right edgar radiata extending into the centrum semiovale. Additional periventricular white matter hypodensity. Right cerebellar cortical defect likely an old infarct. -Add Keppra 5000mg IV Q12H-> switch to Keppra 500mg PO Q12H pending swallow eval -Cerebyx 100mg IV Q8H-> switch to home med Dilantin 100mg PO TID pending swallow eval -Decadron 10mg IVP Q8H, total [address] Magana. Dominique Salas, PGY-1
[2019-01-03] MEDS ORDERED: Magnesium Hydroxide Susp 30 ml UD PO PRN (17:10)
--- NOTE | 2019-01-03 17:49 | CP.PCM.HP ---
Past Patient History - Infectious Disease Hx of Infectious Diseases: None - Tetanus Immunizations Tetanus Immunization: Unknown - Past Medical History & Family History Past Medical History?: Yes - Past Social History Smoking Status: Heavy Smoker > 10 Cigarettes Daily - CARDIAC Hx Hypertension: Yes - PULMONARY Hx Chronic Obstructive Pulmonary Disease (COPD): Yes - NEUROLOGICAL HX Cerebrovascular Accident: Yes (2014) - HEENT Hx HEENT Problems: Yes Other/Comment: wears eyeglasses - RENAL Hx Chronic Kidney Disease: No - ENDOCRINE/METABOLIC Hx Hyperthyroidism: Yes - HEMATOLOGICAL/ONCOLOGICAL Hx Blood Disorders: No Hx Blood Transfusions: No Hx Cancer: Yes (small cell lung cancer 2014) Hx Chemotherapy: Yes (plus radiation) - INTEGUMENTARY Hx Dermatological Problems: No - MUSCULOSKELETAL/RHEUMATOLOGICAL Hx Musculoskeletal Disorders: Yes Hx Falls: Yes Hx Unsteady Gait: Yes - GASTROINTESTINAL Hx Gastrointestinal Disorders: Yes Hx Constipation: Yes Hx Gastroesophageal Reflux: Yes (w/ esophagitis) - GENITOURINARY/GYNECOLOGICAL Hx Genitourinary Disorders: No - PSYCHIATRIC Hx Substance Use: No - SURGICAL HISTORY Hx Coronary Stent: Yes Hx Tonsillectomy: Yes - ANESTHESIA Hx Anesthesia: Yes Hx Anesthesia Reactions: No Hx Malignant Hyperthermia: No Meds Allergies/Adverse Reactions: Allergies Allergy/AdvReac Type Severity Reaction Status Date / Time FISH Allergy Verified 01/03/19 10:34 iodine Allergy Verified 01/03/19 10:34 iron Allergy Verified 01/03/19 10:34 Penicillins Allergy Verified 01/03/19 10:34 Sulfa (Sulfonamide Allergy Verified 01/03/19 10:34 Antibiotics) seafood Allergy Uncoded 08/11/17 18:53 Physical Exam - Constitutional Appears: Well - Head Exam Head Exam: ATRAUMATIC, NORMAL INSPECTION, NORMOCEPHALIC - Eye Exam Eye Exam: EOMI, Normal appearance, PERRL Pupil Exam: NORMAL ACCOMODATION, PERRL - ENT Exam ENT Exam: Mucous Membranes Moist, Normal Exam - Neck Exam Neck exam: Positive for: Normal Inspection - Respiratory Exam Respiratory Exam: Decreased Breath Sounds - Cardiovascular Exam Cardiovascular Exam: REGULAR RHYTHM, +S1, +S2 - GI/Abdominal Exam GI & Abdominal Exam: Diminished Bowel Sounds, Soft - Rectal Exam Rectal Exam: Deferred Results - Vital Signs Recent Vital Signs: Last Vital Signs Temp 98.9 F 01/03/19 15:56 Pulse 103 H 01/03/19 15:56 Resp 20 01/03/19 15:56 BP 132/83 01/03/19 15:56 Pulse Ox 97 01/03/19 15:56 - Labs Result Diagrams: 01/03/19 10:59 01/03/19 10:59 Labs: Laboratory Results - last 24 hr 01/03/19 01/03/19 01/03/19 10:25 10:59 10:59 WBC 7.7 RBC 4.09 Hgb 13.0 Hct 38.5 MCV 94.3 MCH 31.9 H MCHC 33.9 RDW 13.6 Plt Count 181 MPV 8.2 Neut % (Auto) 77.4 H Lymph % (Auto) 15.5 L [place] % (Auto) 4.5 Eos % (Auto) 1.9 Baso % (Auto) 0.7 Neut # (Auto) 5.9 Lymph # (Auto) 1.2 [place] # (Auto) 0.3 Eos # (Auto) 0.1 Baso # (Auto) 0.1 Sodium 133 Potassium 3.6 Chloride 98 Carbon Dioxide 25 Anion Gap 13 BUN 11 Creatinine 0.5 L Est GFR ( Amer) > 60 Est GFR (Non-Af Amer) > 60 POC Glucose (mg/dL) 120 H Random Glucose 119 H Calcium 9.3 Total Bilirubin 1.0 AST 34 ALT 24 Alkaline Phosphatase 73 Total Creatine Kinase 31 Total Protein 6.7 Albumin 3.8 Globulin 2.8 Albumin/Globulin Ratio 1.3 Urine Color Urine Clarity Urine pH Ur Specific [place] Urine Protein Urine Glucose (UA) Urine Ketones Urine Blood Urine Nitrate Urine Bilirubin Urine Urobilinogen Ur Leukocyte Esterase Urine WBC (Auto) Urine RBC (Auto) Urine Bacteria Phenytoin 01/03/19 01/03/19 10:59 11:50 WBC RBC Hgb Hct MCV MCH MCHC RDW Plt Count MPV Neut % (Auto) Lymph % (Auto) [place] % (Auto) Eos % (Auto) Baso % (Auto) Neut # (Auto) Lymph # (Auto) [place] # (Auto) Eos # (Auto) Baso # (Auto) Sodium Potassium Chloride Carbon Dioxide Anion Gap BUN Creatinine Est GFR ( Amer) Est GFR (Non-Af Amer) POC Glucose (mg/dL) Random Glucose Calcium Total Bilirubin AST ALT Alkaline Phosphatase Total Creatine Kinase Total Protein Albumin Globulin Albumin/Globulin Ratio Urine Color Yellow Urine Clarity Clear Urine pH 5.0 Ur Specific [place] 1.012 Urine Protein Negative Urine Glucose (UA) Normal Urine Ketones Negative Urine Blood 1+ H Urine Nitrate Negative Urine Bilirubin Negative Urine Urobilinogen Normal Ur Leukocyte Esterase Neg Urine WBC (Auto) 2 Urine RBC (Auto) 6 H Urine Bacteria Rare Phenytoin 15.3
[2019-01-03] MEDS: Sodium Chloride 0.9% 1,000 ML IV SCH (18:05)
[2019-01-03] MEDS: Fosphenytoin 100 MG in Dextrose 5% In Water 50 ML IV SCH (18:05)
[2019-01-03] MEDS: Dexamethasone 4 mg/1 ml IVP SCH (18:54)
[2019-01-03] MEDS ORDERED: PYRIDOXINE PO SCH (22:00)
[2019-01-03] MEDS ORDERED: MELATONIN PO SCH (22:00)
[2019-01-04] MEDS: Fosphenytoin 100 MG in Dextrose 5% In Water 50 ML IV SCH ×3 (01:15→17:58)
[2019-01-04] MEDS: Dexamethasone 4 mg/1 ml IVP SCH ×2 (02:59→11:35)
[2019-01-04] MEDS: Pantoprazole 40 mg EC Tab PO SCH (11:22)
[2019-01-04] MEDS: Sodium Chloride 0.9% 1,000 ML IV SCH (11:22)
--- NOTE | 2019-01-04 11:51 | CP.PCM.PN ---
Subjective - Date & Time of Evaluation Date of Evaluation: 01/04/19 Time of Evaluation: 11:50 - Subjective Subjective: Neuro Follow-Up Note: Mrs. Jean was evaluated this afternoon at bedside. Pt states that she feel "ok" today. She denies any complaints. During exam, pt's left forearm and hand noted to be cold with discoloration. Per pt, this started yesterday. Otherwise she denies h/a, seizure activity, dizziness, visual changes, chest pain, sob, abd pain, n/v/d, paresthesias. Objective - Vital Signs/Intake and Output Vital Signs (last 24 hours): Temp Pulse Resp BP Pulse Ox 98.4 F 97 H 20 123/71 96 01/04/19 08:20 01/04/19 08:20 01/04/19 08:20 01/04/19 08:20 01/04/19 08:20 - Medications Medications: Current Medications Acetaminophen (Tylenol 325mg Tab) 650 mg PO Q4 PRN PRN Reason: Pain, Mild (1-3) Last Admin: 01/04/19 11:26 Dose: 650 mg Amlodipine Besylate (Norvasc) 5 mg PO DAILY [facility] Last Admin: 01/04/19 11:21 Dose: 5 mg Aspirin (Ecotrin) 81 mg PO DAILY [facility] Last Admin: 01/04/19 11:22 Dose: 81 mg Fosphenytoin Sodium 100 mg/ (Dextrose) 52 mls @ 100 mls/hr IV Q8H [facility] Stop: 01/04/19 17:01 Last Admin: 01/04/19 11:21 Dose: 100 mls/hr Levetiracetam 500 mg/ Dextrose 105 mls @ 420 mls/hr IVPB Q12H [facility] Last Admin: 01/03/19 21:12 Dose: 420 mls/hr Sodium Chloride (Sodium Chloride 0.9%) 1,000 mls @ 60 mls/hr IV .[id number] [facility] Stop: 01/05/19 02:34 Last Admin: 01/04/19 11:22 Dose: 60 mls/hr Magnesium Hydroxide (Milk Of Magnesia) 30 ml PO Q24H PRN PRN Reason: Constipation Metoclopramide HCl (Reglan) 10 mg PO Q8H PRN PRN Reason: Nausea/Vomiting Pantoprazole Sodium (Protonix Ec Tab) 40 mg PO DAILY [facility] Last Admin: 01/04/19 11:22 Dose: 40 mg Sennosides (Senokot Tab) 17.2 mg PO HS PRN PRN Reason: Constipation Sertraline HCl (Zoloft) 100 mg PO DAILY [facility] Last Admin: 01/04/19 11:22 Dose: 100 mg - Labs Labs: 01/03/19 10:59 01/03/19 10:59 - Constitutional Appears: Well, Non-toxic, No Acute Distress - Head Exam Head Exam: NORMOCEPHALIC - Eye Exam Eye Exam: EOMI, Normal appearance Pupil Exam: NORMAL ACCOMODATION, PERRL - ENT Exam ENT Exam: Mucous Membranes Moist - Neck Exam Neck Exam: Full ROM, Normal Inspection - Respiratory Exam Respiratory Exam: NORMAL BREATHING PATTERN - Extremities Exam Additional comments: Discolored and cold LUE LUE and LLE no movement. - Neurological Exam Neurological Exam: Alert, Awake, CN II-XII Intact Neuro motor strength exam: Left Upper Extremity: 0, Right Upper Extremity: 4, Left Lower Extremity: 0, Right Lower Extremity: 3 Additional comments: AAO Speech clear No tremors or abnormal movements noted. - Psychiatric Exam Psychiatric exam: Normal Affect, Normal Mood - Skin Additional comments: discolored and cold LUE Assessment and Plan (1) Seizure Assessment & Plan: -Imaging reviewed. -Continue Keppra 500 mg Iv Q12 hours and Cerebyx 100 mg IV Q8 hours. May change to Keppra 500 mg PO Q12 and Dilantin 100 mg PO TID when pt passes swallow eval. -Continue seizure precautions. -Stat doppler ordered for LUE cold with discoloration; Dr. Azam Schafer aware and he will f/u with results. -Continue PT/OT. -Notify neuro team of any acute changes in pt's condition. Magaly Arnold, CAROL, DESILVERIZER Discussed with Dr. Magana Status: Acute
--- NOTE | 2019-01-04 13:26 | CARD ---
APPROVED REPORT Date of service: 01/03/2019 EKG Measurement Heart [id number] <Conclusion> Sinus tachycardia with occasional premature ventricular complexes Nonspecific ST abnormality Abnormal ECG
--- NOTE | 2019-01-04 19:39 | CP.PCM.PN ---
Subjective - Date & Time of Evaluation Date of Evaluation: 01/04/19 Time of Evaluation: 10:00 - Subjective Subjective: clinically same Objective - Vital Signs/Intake and Output Vital Signs (last 24 hours): Temp Pulse Resp BP Pulse Ox 98.4 F 102 H 20 120/75 96 01/04/19 08:20 01/04/19 16:05 01/04/19 08:20 01/04/19 11:44 01/04/19 08:20 Intake and Output: 01/04/19 01/05/19 18:59 06:59 Intake Total 420 Balance 420 - Medications Medications: Current Medications Acetaminophen (Tylenol 325mg Tab) 650 mg PO Q4 PRN PRN Reason: Pain, Mild (1-3) Last Admin: 01/04/19 11:26 Dose: 650 mg Amlodipine Besylate (Norvasc) 5 mg PO DAILY [facility] Last Admin: 01/04/19 11:21 Dose: 5 mg Aspirin (Ecotrin) 81 mg PO DAILY [facility] Last Admin: 01/04/19 11:22 Dose: 81 mg Levetiracetam 500 mg/ Dextrose 105 mls @ 420 mls/hr IVPB Q12H [facility] Last Admin: 01/04/19 13:34 Dose: 420 mls/hr Sodium Chloride (Sodium Chloride 0.9%) 1,000 mls @ 60 mls/hr IV .[id number] [facility] Stop: 01/05/19 02:34 Last Admin: 01/04/19 11:22 Dose: 60 mls/hr Magnesium Hydroxide (Milk Of Magnesia) 30 ml PO Q24H PRN PRN Reason: Constipation Metoclopramide HCl (Reglan) 10 mg PO Q8H PRN PRN Reason: Nausea/Vomiting Pantoprazole Sodium (Protonix Ec Tab) 40 mg PO DAILY [facility] Last Admin: 01/04/19 11:22 Dose: 40 mg Sennosides (Senokot Tab) 17.2 mg PO HS PRN PRN Reason: Constipation Sertraline HCl (Zoloft) 100 mg PO DAILY [facility] Last Admin: 01/04/19 11:22 Dose: 100 mg - Labs Labs: 01/03/19 10:59 01/03/19 10:59 - Constitutional Appears: Well - Head Exam Head Exam: ATRAUMATIC, NORMAL INSPECTION, NORMOCEPHALIC - Eye Exam Eye Exam: EOMI, Normal appearance, PERRL Pupil Exam: NORMAL ACCOMODATION, PERRL - ENT Exam ENT Exam: Mucous Membranes Moist, Normal Exam - Neck Exam Neck Exam: Full ROM, Normal Inspection. absent: Lymphadenopathy - Respiratory Exam Respiratory Exam: Decreased Breath Sounds - Cardiovascular Exam Cardiovascular Exam: REGULAR RHYTHM, +S1, +S2 - GI/Abdominal Exam GI & Abdominal Exam: Soft, Diminished Bowel Sounds - Rectal Exam Rectal Exam: Deferred
[2019-01-05] MEDS: Pantoprazole 40 mg EC Tab PO SCH (09:46)
[2019-01-05] MEDS: Naproxen 550 mg Tab PO PRN (14:12)
--- NOTE | 2019-01-05 18:35 | CP.PCM.PN ---
Subjective - Date & Time of Evaluation Date of Evaluation: 01/05/19 Time of Evaluation: 09:15 - Subjective Subjective: clinically same Objective - Vital Signs/Intake and Output Vital Signs (last 24 hours): Temp Pulse Resp BP Pulse Ox 98.3 F 82 20 115/73 98 01/05/19 17:29 01/05/19 17:29 01/05/19 17:29 01/05/19 17:29 01/05/19 17:29 - Medications Medications: Current Medications Acetaminophen (Tylenol 325mg Tab) 650 mg PO Q4 PRN PRN Reason: Pain, Mild (1-3) Last Admin: 01/05/19 09:51 Dose: 650 mg Amlodipine Besylate (Norvasc) 5 mg PO DAILY [facility] Last Admin: 01/05/19 09:46 Dose: 5 mg Aspirin (Ecotrin) 81 mg PO DAILY [facility] Last Admin: 01/05/19 09:46 Dose: 81 mg Levetiracetam 500 mg/ Dextrose 105 mls @ 420 mls/hr IVPB Q12H [facility] Last Admin: 01/05/19 09:46 Dose: 420 mls/hr Magnesium Hydroxide (Milk Of Magnesia) 30 ml PO Q24H PRN PRN Reason: Constipation Metoclopramide HCl (Reglan) 10 mg PO Q8H PRN PRN Reason: Nausea/Vomiting Naproxen (Anaprox Ds) 550 mg PO Q12 PRN PRN Reason: Pain, severe (8-10) Last Admin: 01/05/19 14:12 Dose: 550 mg Pantoprazole Sodium (Protonix Ec Tab) 40 mg PO DAILY [facility] Last Admin: 01/05/19 09:46 Dose: 40 mg Sennosides (Senokot Tab) 17.2 mg PO HS PRN PRN Reason: Constipation Sertraline HCl (Zoloft) 100 mg PO DAILY [facility] Last Admin: 01/05/19 09:46 Dose: 100 mg - Labs Labs: 01/03/19 10:59 01/03/19 10:59 - Constitutional Appears: Well - Head Exam Head Exam: ATRAUMATIC, NORMAL INSPECTION, NORMOCEPHALIC - Eye Exam Eye Exam: EOMI, Normal appearance, PERRL Pupil Exam: NORMAL ACCOMODATION, PERRL - ENT Exam ENT Exam: Mucous Membranes Moist, Normal Exam - Neck Exam Neck Exam: Full ROM, Normal Inspection. absent: Lymphadenopathy - Respiratory Exam Respiratory Exam: Decreased Breath Sounds - Cardiovascular Exam Cardiovascular Exam: REGULAR RHYTHM, +S1, +S2 - GI/Abdominal Exam GI & Abdominal Exam: Soft, Diminished Bowel Sounds - Rectal Exam Rectal Exam: Deferred
--- NOTE | 2019-01-05 20:38 | CP.PCM.CON ---
Past Patient History - Infectious Disease Hx of Infectious Diseases: None - Tetanus Immunizations Tetanus Immunization: Unknown - Past Medical History & Family History Past Medical History?: Yes - Past Social History Smoking Status: Unknown If Ever Smoked - CARDIAC Hx Hypertension: Yes - PULMONARY Hx Chronic Obstructive Pulmonary Disease (COPD): Yes - NEUROLOGICAL HX Cerebrovascular Accident: Yes (2014) - HEENT Hx HEENT Problems: Yes Other/Comment: wears eyeglasses - RENAL Hx Chronic Kidney Disease: No - ENDOCRINE/METABOLIC Hx Hyperthyroidism: Yes - HEMATOLOGICAL/ONCOLOGICAL Hx Blood Disorders: No Hx Blood Transfusions: No Hx Cancer: Yes (small cell lung cancer 2014) Hx Chemotherapy: Yes (plus radiation) - INTEGUMENTARY Hx Dermatological Problems: No - MUSCULOSKELETAL/RHEUMATOLOGICAL Hx Musculoskeletal Disorders: Yes Hx Falls: Yes Hx Unsteady Gait: Yes - GASTROINTESTINAL Hx Gastroesophageal Reflux: Yes - GENITOURINARY/GYNECOLOGICAL Hx Genitourinary Disorders: No - PSYCHIATRIC Hx Substance Use: No - SURGICAL HISTORY Hx Coronary Stent: Yes Hx Tonsillectomy: Yes - ANESTHESIA Hx Anesthesia: Yes Hx Anesthesia Reactions: No Hx Malignant Hyperthermia: No Meds Allergies/Adverse Reactions: Allergies Allergy/AdvReac Type Severity Reaction Status Date / Time FISH Allergy Verified 01/03/19 10:34 iodine Allergy Verified 01/03/19 10:34 iron Allergy Verified 01/03/19 10:34 Penicillins Allergy Verified 01/03/19 10:34 Sulfa (Sulfonamide Allergy Verified 01/03/19 10:34 Antibiotics) seafood Allergy Uncoded 08/11/17 18:53 - Medications Medications: Current Medications Acetaminophen (Tylenol 325mg Tab) 650 mg PO Q4 PRN PRN Reason: Pain, Mild (1-3) Last Admin: 01/05/19 09:51 Dose: 650 mg Amlodipine Besylate (Norvasc) 5 mg PO DAILY [facility] Last Admin: 01/05/19 09:46 Dose: 5 mg Aspirin (Ecotrin) 81 mg PO DAILY [facility] Last Admin: 01/05/19 09:46 Dose: 81 mg Levetiracetam 500 mg/ Dextrose 105 mls @ 420 mls/hr IVPB Q12H [facility] Last Admin: 01/05/19 09:46 Dose: 420 mls/hr Magnesium Hydroxide (Milk Of Magnesia) 30 ml PO Q24H PRN PRN Reason: Constipation Metoclopramide HCl (Reglan) 10 mg PO Q8H PRN PRN Reason: Nausea/Vomiting Naproxen (Anaprox Ds) 550 mg PO Q12 PRN PRN Reason: Pain, severe (8-10) Last Admin: 01/05/19 14:12 Dose: 550 mg Pantoprazole Sodium (Protonix Ec Tab) 40 mg PO DAILY [facility] Last Admin: 01/05/19 09:46 Dose: 40 mg Sennosides (Senokot Tab) 17.2 mg PO HS PRN PRN Reason: Constipation Sertraline HCl (Zoloft) 100 mg PO DAILY [facility] Last Admin: 01/05/19 09:46 Dose: 100 mg Results - Vital Signs Recent Vital Signs: Last Vital Signs Temp 98.3 F 01/05/19 17:29 Pulse 82 01/05/19 17:29 Resp 20 01/05/19 17:29 BP 115/73 01/05/19 17:29 Pulse Ox 98 01/05/19 17:29 - Labs Result Diagrams: 01/03/19 10:59 01/03/19 10:59
--- NOTE | 2019-01-05 23:18 | CP.PCM.CON ---
History of Present Illness - History of Present Illness History of Present Illness: Covering Dr. 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 The patient has apparently been less responsive. She was treated with Ativan. Imaging did not reveal overt tumor but did show vasogenic edema. Past medical history: HTN, seizure disorder, stage IV small cell lung cancer Past surgical history: Craniotomy with brain tumor resection Allergies: Several, see list Past Patient History - Infectious Disease Hx of Infectious Diseases: None - Tetanus Immunizations Tetanus Immunization: Unknown - Past Medical History & Family History Past Medical History?: Yes - Past Social History Smoking Status: Unknown If Ever Smoked - CARDIAC Hx Hypertension: Yes - PULMONARY Hx Chronic Obstructive Pulmonary Disease (COPD): Yes - NEUROLOGICAL HX Cerebrovascular Accident: Yes (2014) - HEENT Hx HEENT Problems: Yes Other/Comment: wears eyeglasses - RENAL Hx Chronic Kidney Disease: No - ENDOCRINE/METABOLIC Hx Hyperthyroidism: Yes - HEMATOLOGICAL/ONCOLOGICAL Hx Blood Disorders: No Hx Blood Transfusions: No Hx Cancer: Yes (small cell lung cancer 2014) Hx Chemotherapy: Yes (plus radiation) - INTEGUMENTARY Hx Dermatological Problems: No - MUSCULOSKELETAL/RHEUMATOLOGICAL Hx Musculoskeletal Disorders: Yes Hx Falls: Yes Hx Unsteady Gait: Yes - GASTROINTESTINAL Hx Gastroesophageal Reflux: Yes - GENITOURINARY/GYNECOLOGICAL Hx Genitourinary Disorders: No - PSYCHIATRIC Hx Substance Use: No - SURGICAL HISTORY Hx Coronary Stent: Yes Hx Tonsillectomy: Yes - ANESTHESIA Hx Anesthesia: Yes Hx Anesthesia Reactions: No Hx Malignant Hyperthermia: No Meds Allergies/Adverse Reactions: Allergies Allergy/AdvReac Type Severity Reaction Status Date / Time FISH Allergy Verified 01/03/19 10:34 iodine Allergy Verified 01/03/19 10:34 iron Allergy Verified 01/03/19 10:34 Penicillins Allergy Verified 01/03/19 10:34 Sulfa (Sulfonamide Allergy Verified 01/03/19 10:34 Antibiotics) seafood Allergy Uncoded 08/11/17 18:53 - Medications Medications: Current Medications Acetaminophen (Tylenol 325mg Tab) 650 mg PO Q4 PRN PRN Reason: Pain, Mild (1-3) Last Admin: 01/05/19 09:51 Dose: 650 mg Amlodipine Besylate (Norvasc) 5 mg PO DAILY [facility] Last Admin: 01/05/19 09:46 Dose: 5 mg Aspirin (Ecotrin) 81 mg PO DAILY [facility] Last Admin: 01/05/19 09:46 Dose: 81 mg Levetiracetam 500 mg/ Dextrose 105 mls @ 420 mls/hr IVPB Q12H [facility] Last Admin: 01/05/19 22:05 Dose: 420 mls/hr Magnesium Hydroxide (Milk Of Magnesia) 30 ml PO Q24H PRN PRN Reason: Constipation Metoclopramide HCl (Reglan) 10 mg PO Q8H PRN PRN Reason: Nausea/Vomiting Naproxen (Anaprox Ds) 550 mg PO Q12 PRN PRN Reason: Pain, severe (8-10) Last Admin: 01/05/19 14:12 Dose: 550 mg Pantoprazole Sodium (Protonix Ec Tab) 40 mg PO DAILY [facility] Last Admin: 01/05/19 09:46 Dose: 40 mg Sennosides (Senokot Tab) 17.2 mg PO HS PRN PRN Reason: Constipation Sertraline HCl (Zoloft) 100 mg PO DAILY [facility] Last Admin: 01/05/19 09:46 Dose: 100 mg Physical Exam - Head Exam Head Exam: ATRAUMATIC - Eye Exam Eye Exam: Normal appearance - ENT Exam ENT Exam: Mucous Membranes Dry - Respiratory Exam Respiratory Exam: Decreased Breath Sounds - Cardiovascular Exam Cardiovascular Exam: +S1, +S2 - GI/Abdominal Exam GI & Abdominal Exam: Normal Bowel Sounds Results - Vital Signs Recent Vital Signs: Last Vital Signs Temp 98.3 F 01/05/19 17:29 Pulse 82 01/05/19 17:29 Resp 20 01/05/19 17:29 BP 115/73 01/05/19 17:29 Pulse Ox 98 01/05/19 17:29 - Labs Result Diagrams: 01/03/19 10:59 01/03/19 10:59 Assessment & Plan (1) Small cell lung cancer Assessment and Plan: brain metastasis s/p craniotomy, brain tumor resection, and radiotherapy consider MRI brain when more stable if vasogenic edema is felt to related to recurrent/residual malignancy, would benefit from steroids seizure precaution and antiepileptic outpatient f/u with Dr. Byrne Thank you for this interesting consult. Status: Acute
[2019-01-06] MEDS: Pantoprazole 40 mg EC Tab PO SCH (09:46)
[2019-01-06] MEDS: Dextrose 5%/0.45% NS 1,000 ML IV SCH (14:18)
--- NOTE | 2019-01-06 15:51 | CP.PCM.PN ---
Subjective - Date & Time of Evaluation Date of Evaluation: 01/06/19 Time of Evaluation: 08:45 - Subjective Subjective: clinically same Objective - Vital Signs/Intake and Output Vital Signs (last 24 hours): Temp Pulse Resp BP Pulse Ox 97.9 F 97 H 20 108/73 98 01/06/19 08:40 01/06/19 09:31 01/06/19 08:40 01/06/19 09:31 01/06/19 08:40 Intake and Output: 01/06/19 01/06/19 06:59 18:59 Intake Total 150 50 Output Total 500 Balance -350 50 - Medications Medications: Current Medications Acetaminophen (Tylenol 325mg Tab) 650 mg PO Q4 PRN PRN Reason: Pain, Mild (1-3) Last Admin: 01/06/19 09:55 Dose: 650 mg Amlodipine Besylate (Norvasc) 5 mg PO DAILY [facility] Last Admin: 01/06/19 09:46 Dose: 5 mg Aspirin (Ecotrin) 81 mg PO DAILY [facility] Last Admin: 01/06/19 09:46 Dose: 81 mg Levetiracetam 500 mg/ Dextrose 105 mls @ 420 mls/hr IVPB Q12H [facility] Last Admin: 01/06/19 09:47 Dose: 420 mls/hr Dextrose/Sodium Chloride (Dextrose 5%/0.45% Ns 1000 Ml) 1,000 mls @ 60 mls/hr IV .[id number] [facility] Last Admin: 01/06/19 14:18 Dose: 60 mls/hr Magnesium Hydroxide (Milk Of Magnesia) 30 ml PO Q24H PRN PRN Reason: Constipation Metoclopramide HCl (Reglan) 10 mg PO Q8H PRN PRN Reason: Nausea/Vomiting Naproxen (Anaprox Ds) 550 mg PO Q12 PRN PRN Reason: Pain, severe (8-10) Last Admin: 01/05/19 14:12 Dose: 550 mg Pantoprazole Sodium (Protonix Ec Tab) 40 mg PO DAILY [facility] Last Admin: 01/06/19 09:46 Dose: 40 mg Sennosides (Senokot Tab) 17.2 mg PO HS PRN PRN Reason: Constipation Sertraline HCl (Zoloft) 100 mg PO DAILY [facility] Last Admin: 01/06/19 09:46 Dose: 100 mg - Labs Labs: 01/03/19 10:59 01/03/19 10:59 - Constitutional Appears: Well - Head Exam Head Exam: ATRAUMATIC, NORMAL INSPECTION, NORMOCEPHALIC - Eye Exam Eye Exam: EOMI, Normal appearance, PERRL Pupil Exam: NORMAL ACCOMODATION, PERRL - ENT Exam ENT Exam: Mucous Membranes Moist, Normal Exam - Neck Exam Neck Exam: Full ROM, Normal Inspection. absent: Lymphadenopathy - Respiratory Exam Respiratory Exam: Decreased Breath Sounds - Cardiovascular Exam Cardiovascular Exam: REGULAR RHYTHM, +S1, +S2 - GI/Abdominal Exam GI & Abdominal Exam: Soft, Diminished Bowel Sounds - Rectal Exam Rectal Exam: Deferred
[2019-01-07] MEDS: Dextrose 5%/0.45% NS 1,000 ML IV SCH (07:31)
--- NOTE | 2019-01-07 10:07 | VASCLAB ---
Date of service: 01/04/2019 PROCEDURE: Left Upper Extremity Venous Duplex Exam HISTORY: LEFT ARM DISCOLORATION, COLD PRIORS: None. TECHNIQUE: Left upper extremity, internal jugular, subclavian, axillary, brachial, ulnar, radial, basilic and upper cephalic veins were evaluated. Flow was assessed with color Doppler, compressibility, assessment of phasic flow and augmentation response. Report prepared by Drew Owen, CHELY, RVT FINDINGS: LEFT: 1. Internal Jugular: 1.1. Compressibility - Fully compressible: Thrombus - None : Flow - Phasic: Augmentation -Normal: Reflux - None. 2. Subclavian: 2.1. Compressibility - Fully compressible: Thrombus - None : Flow - Phasic: Augmentation -Normal: Reflux - None. 3. Axillary: 3.1. Compressibility - Fully compressible: Thrombus - None : Flow - Phasic: Augmentation -Normal: Reflux - None. 4. Brachial: 4.1. Compressibility - Fully compressible: Thrombus - None: Flow - Phasic: Augmentation -Normal: Reflux - None. 5. Ulnar: 5.1. Compressibility - Fully compressible: Thrombus - None: Flow - Phasic: Augmentation -Normal: Reflux - None. 6. Radial: 6.1. Compressibility - Fully compressible: Thrombus - None: Flow - Phasic: Augmentation - Normal: Reflux - None. 7. Cephalic: 7.1. Compressibility - Fully compressible: Thrombus - None: Flow - Phasic: Augmentation -Normal: Reflux - None. 8. Basilic: 8.1. Compressibility - Fully compressible: Thrombus - None: Flow - Phasic: Augmentation -Normal: Reflux - None. OTHER FINDINGS: Left: None. IMPRESSION: Left: No evidence of vein thrombosis of the left upper extremity with excellent venous flow. Normal valve function noted of the left side. Normal venous flow noted in the right internal jugular and right subclavian veins.
[2019-01-07] MEDS: Phenytoin 100 mg/4 ml Oral Susp UD PO SCH ×3 (10:28→18:54)
[2019-01-07] MEDS: Pantoprazole 40 mg EC Tab PO SCH (10:28)
[2019-01-07] MEDS: levETIRAcetam 100 mg/ml (5ml) Oral Syringe PO SCH ×2 (10:40→21:42)
--- NOTE | 2019-01-07 14:08 | CP.PCM.PN ---
Subjective - Date & Time of Evaluation Date of Evaluation: 01/07/19 Time of Evaluation: 14:06 - Subjective Subjective: Neuro Follow-Up Note: Mrs. Jean was evaluated this afternoon at bedside. Pt states that she feel good today and denies any complaints. She is eager to go back to the longterm. She is able to move all extremities today. She denies h/a, seizure activity, dizziness, visual changes, chest pain, sob, abd pain, n/v/d, paresthesias. Objective - Vital Signs/Intake and Output Vital Signs (last 24 hours): Temp Pulse Resp BP Pulse Ox 97.9 F 89 20 116/77 98 01/07/19 08:00 01/07/19 08:00 01/07/19 08:00 01/07/19 08:00 01/07/19 08:00 Intake and Output: 01/07/19 01/07/19 06:59 18:59 Output Total 500 Balance -500 - Medications Medications: Current Medications Acetaminophen (Tylenol 325mg Tab) 650 mg PO Q4 PRN PRN Reason: Pain, Mild (1-3) Last Admin: 01/06/19 16:16 Dose: 650 mg Amlodipine Besylate (Norvasc) 5 mg PO DAILY [facility] Last Admin: 01/07/19 10:28 Dose: 5 mg Aspirin (Ecotrin) 81 mg PO DAILY [facility] Last Admin: 01/07/19 10:28 Dose: 81 mg Dextrose/Sodium Chloride (Dextrose 5%/0.45% Ns 1000 Ml) 1,000 mls @ 60 mls/hr IV .[id number] [facility] Last Admin: 01/07/19 07:31 Dose: 60 mls/hr Levetiracetam (Keppra) 500 mg PO Q12 [facility] Last Admin: 01/07/19 10:40 Dose: 500 mg Magnesium Hydroxide (Milk Of Magnesia) 30 ml PO Q24H PRN PRN Reason: Constipation Metoclopramide HCl (Reglan) 10 mg PO Q8H PRN PRN Reason: Nausea/Vomiting Naproxen (Anaprox Ds) 550 mg PO Q12 PRN PRN Reason: Pain, severe (8-10) Last Admin: 01/05/19 14:12 Dose: 550 mg Pantoprazole Sodium (Protonix Ec Tab) 40 mg PO DAILY [facility] Last Admin: 01/07/19 10:28 Dose: 40 mg Phenytoin (Dilantin) 100 mg PO TID [facility] Last Admin: 01/07/19 13:57 Dose: 100 mg Sennosides (Senokot Tab) 17.2 mg PO HS PRN PRN Reason: Constipation Sertraline HCl (Zoloft) 100 mg PO DAILY [facility] Last Admin: 01/07/19 10:29 Dose: 100 mg - Labs Labs: 01/03/19 10:59 01/03/19 10:59 - Constitutional Appears: Well, Non-toxic, No Acute Distress - Head Exam Head Exam: NORMAL INSPECTION, NORMOCEPHALIC - Eye Exam Eye Exam: EOMI, Normal appearance, PERRL Pupil Exam: NORMAL ACCOMODATION, PERRL - ENT Exam ENT Exam: Mucous Membranes Moist - Neck Exam Neck Exam: Full ROM - Respiratory Exam Respiratory Exam: NORMAL BREATHING PATTERN - Extremities Exam Extremities Exam: Full ROM. absent: Calf Tenderness, Pedal Edema Additional comments: from with generalized weakness 2/2 deconditioning. - Neurological Exam Neurological Exam: Alert, Awake, CN II-XII Intact, Oriented x3, Reflexes Normal Neuro motor strength exam: Left Upper Extremity: 4, Right Upper Extremity: 4, Left Lower Extremity: 3, Right Lower Extremity: 3 Additional comments: Speech clear More alert today compared to Monday. Generalized weakness noted, though pt is able to move extremities. No tremors or abnormal movements noted. - Psychiatric Exam Psychiatric exam: Normal Affect, Normal Mood - Skin Skin Exam: Normal Color Assessment and Plan (1) Seizure Assessment & Plan: Imaging reviewed: -CT head (01/03/19): Status post right lateral frontal craniotomy with postoperative changes in the high right frontal lobe with the vasogenic edema throughout the right edgar radiata extending into the centrum semiovale. Additional periventricular white matter hypodensity. Right cerebellar cortical defect likely an old infarct. -Continue Keppra 500 mg PO Q12 hours and Dilantin 100 mg PO TID. -Continue seizure precautions. -Continue PT/OT. -Notify neuro team of any acute changes in pt's condition. No further neuro recommendations. Reconsult prn. Thank you for this consultation. Magaly Arnold, [facility], [facility]IAL [facility] Discussed with Dr. [place] Status: Acute
--- NOTE | 2019-01-07 20:03 | CP.PCM.PN ---
Subjective - Date & Time of Evaluation Date of Evaluation: 01/07/19 Time of Evaluation: 08:00 - Subjective Subjective: clinically same Objective - Vital Signs/Intake and Output Vital Signs (last 24 hours): Temp Pulse Resp BP Pulse Ox 97.9 F 89 20 116/77 98 01/07/19 08:00 01/07/19 08:00 01/07/19 08:00 01/07/19 08:00 01/07/19 08:00 Intake and Output: 01/07/19 01/08/19 18:59 06:59 Intake Total 840 Output Total 300 Balance 540 - Medications Medications: Current Medications Acetaminophen (Tylenol 325mg Tab) 650 mg PO Q4 PRN PRN Reason: Pain, Mild (1-3) Last Admin: 01/06/19 16:16 Dose: 650 mg Amlodipine Besylate (Norvasc) 5 mg PO DAILY [facility] Last Admin: 01/07/19 10:28 Dose: 5 mg Aspirin (Ecotrin) 81 mg PO DAILY [facility] Last Admin: 01/07/19 10:28 Dose: 81 mg Dextrose/Sodium Chloride (Dextrose 5%/0.45% Ns 1000 Ml) 1,000 mls @ 60 mls/hr IV .[id number] [facility] Last Admin: 01/07/19 07:31 Dose: 60 mls/hr Levetiracetam (Keppra) 500 mg PO Q12 [facility] Last Admin: 01/07/19 10:40 Dose: 500 mg Magnesium Hydroxide (Milk Of Magnesia) 30 ml PO Q24H PRN PRN Reason: Constipation Metoclopramide HCl (Reglan) 10 mg PO Q8H PRN PRN Reason: Nausea/Vomiting Naproxen (Anaprox Ds) 550 mg PO Q12 PRN PRN Reason: Pain, severe (8-10) Last Admin: 01/05/19 14:12 Dose: 550 mg Pantoprazole Sodium (Protonix Ec Tab) 40 mg PO DAILY [facility] Last Admin: 01/07/19 10:28 Dose: 40 mg Phenytoin (Dilantin) 100 mg PO TID [facility] Last Admin: 01/07/19 18:54 Dose: 100 mg Sennosides (Senokot Tab) 17.2 mg PO HS PRN PRN Reason: Constipation Sertraline HCl (Zoloft) 100 mg PO DAILY [facility] Last Admin: 01/07/19 10:29 Dose: 100 mg - Labs Labs: 01/03/19 10:59 01/03/19 10:59 - Constitutional Appears: Well - Head Exam Head Exam: ATRAUMATIC, NORMAL INSPECTION, NORMOCEPHALIC - Eye Exam Eye Exam: EOMI, Normal appearance, PERRL Pupil Exam: NORMAL ACCOMODATION, PERRL - ENT Exam ENT Exam: Mucous Membranes Moist, Normal Exam - Neck Exam Neck Exam: Full ROM, Normal Inspection. absent: Lymphadenopathy - Respiratory Exam Respiratory Exam: Decreased Breath Sounds - Cardiovascular Exam Cardiovascular Exam: REGULAR RHYTHM, +S1, +S2 - GI/Abdominal Exam GI & Abdominal Exam: Soft, Diminished Bowel Sounds - Rectal Exam Rectal Exam: Deferred
[2019-01-08 00:55] VITALS: O2SAT 97
[2019-01-08] MEDS: Naproxen 550 mg Tab PO PRN ×2 (00:57→10:22)
[2019-01-08] MEDS: Dextrose 5%/0.45% NS 1,000 ML IV SCH (01:15)
[2019-01-08 07:51] VITALS: PULSE 83; RESP 18; TEMP 97.9
[2019-01-08 09:48] VITALS: BP 124/77
[2019-01-08] MEDS: Phenytoin 100 mg/4 ml Oral Susp UD PO SCH ×2 (09:50→13:34)
[2019-01-08] MEDS: Pantoprazole 40 mg EC Tab PO SCH (09:50)
[2019-01-08] MEDS: levETIRAcetam 100 mg/ml (5ml) Oral Syringe PO SCH (09:50)
--- NOTE | 2019-01-08 12:10 | CP.PCM.PN ---
Subjective - Date & Time of Evaluation Date of Evaluation: 01/08/19 Time of Evaluation: 12:10 - Subjective Subjective: PATIENT SEEN AND EXAMINED AT THE BEDSIDE Objective - Vital Signs/Intake and Output Vital Signs (last 24 hours): Temp Pulse Resp BP Pulse Ox 97.9 F 83 18 124/77 97 01/08/19 07:50 01/08/19 08:25 01/08/19 07:50 01/08/19 09:48 01/08/19 07:50 Intake and Output: 01/08/19 01/08/19 06:59 18:59 Intake Total 360 Output Total 200 Balance 160 - Medications Medications: Current Medications Acetaminophen (Tylenol 325mg Tab) 650 mg PO Q4 PRN PRN Reason: Pain, Mild (1-3) Last Admin: 01/06/19 16:16 Dose: 650 mg Amlodipine Besylate (Norvasc) 5 mg PO DAILY [facility] Last Admin: 01/08/19 09:50 Dose: 5 mg Aspirin (Ecotrin) 81 mg PO DAILY [facility] Last Admin: 01/08/19 09:50 Dose: 81 mg Dextrose/Sodium Chloride (Dextrose 5%/0.45% Ns 1000 Ml) 1,000 mls @ 60 mls/hr IV .[id number] [facility] Last Admin: 01/08/19 01:15 Dose: 60 mls/hr Levetiracetam (Keppra) 500 mg PO Q12 [facility] Last Admin: 01/08/19 09:50 Dose: 500 mg Magnesium Hydroxide (Milk Of Magnesia) 30 ml PO Q24H PRN PRN Reason: Constipation Metoclopramide HCl (Reglan) 10 mg PO Q8H PRN PRN Reason: Nausea/Vomiting Morphine Sulfate (Morphine) 2 mg IVP ONCE PRN PRN Reason: Pain, severe (8-10) Naproxen (Anaprox Ds) 550 mg PO Q12 PRN PRN Reason: Pain, severe (8-10) Last Admin: 01/08/19 10:22 Dose: 550 mg Pantoprazole Sodium (Protonix Ec Tab) 40 mg PO DAILY [facility] Last Admin: 01/08/19 09:50 Dose: 40 mg Phenytoin (Dilantin) 100 mg PO TID [facility] Last Admin: 01/08/19 09:50 Dose: 100 mg Sennosides (Senokot Tab) 17.2 mg PO HS PRN PRN Reason: Constipation Sertraline HCl (Zoloft) 100 mg PO DAILY [facility] Last Admin: 01/08/19 09:50 Dose: 100 mg - Labs Labs: 01/03/19 10:59 01/03/19 10:59 Assessment and Plan - Assessment and Plan (Free Text) Assessment: PLACE UNDER THE SERVICE OF DR Azam RIVERA AT [facility] ----CALL FOR ADMITTING ORDER CONTINUE HOME MEDICATION PER MED REC ACTIVITY TOLERATED SACRAL AND PERINEAL moisture associated skin damage Recommending to apply generous amount of aloevesta protective ointment to entire sacral/perineal regions 3x/day and prn as a protective measure and to help with the healing process. Recommending to reposition frequently using foam wedge to optimize offloading to help with the healing process CALL DR Azam RIVERA FOR FURTHER ORDER
[2019-01-08 14:07] LABS: BASO % 0.4 % (0.0-2.0); EOS # 0.2 K/uL (0.0-0.7); LYMPH # 1.1 K/uL (1.0-4.3); LYMPH % 16.4 % (20.0-40.0); MEAN CORPUSCULAR HEMOGLOBIN 32.1 pg (27.0-31.0); MEAN CORPUSCULAR HGB CONC 35.1 g/dL (33.0-37.0); MEAN PLATELET VOLUME 7.2 fL (7.2-11.7); MONO # 0.3 K/uL (0.0-0.8); MONO % 4.7 % (0.0-10.0); NEUT % 75.5 % (50.0-75.0); NRBC % 0.1 % (0.0-2.0); RBC 3.73 Mil/uL (3.80-5.20); RED CELL DISTRIBUTION WIDTH 13.6 % (11.5-14.5); WHITE BLOOD COUNT 6.6 K/uL (4.8-10.8)
[2019-01-08 14:11] LABS: MEAN CELL VOLUME 91.4 fL (81.0-99.0)
[2019-01-08 14:33] LABS: ALB/GLOB RATIO 1.3 (1.0-2.1); ALT/SGPT 23 U/L (9-52); AST/SGOT 14 U/L (14-36); BLOOD UREA NITROGEN 5 mg/dL (7-17); CALCIUM 9.2 mg/dl (8.6-10.4); GFR NON-AFRICAN AMERICAN > 60
== END 2019-01-08 15:06 | disposition home or self-care (01) | DRG 54 ==
LOC: C.ER 10:12 → C.9E 13:08 → C.5S 14:39
PROVIDERS: ADMIT Internal Medicine Nephrology; ATTEND Internal Medicine Nephrology
DX: C79.31 Secondary malignant neoplasm of brain (principal); G40.409 Other generalized epilepsy and epileptic syndromes, not intractable, without status epilepticus; G93.6 Cerebral edema; I69.354 Hemiplegia and hemiparesis following cerebral infarction affecting left non-dominant side; I10 Essential (primary) hypertension; J44.9 Chronic obstructive pulmonary disease, unspecified; E05.90 Thyrotoxicosis, unspecified without thyrotoxic crisis or storm; K21.9 Gastro-esophageal reflux disease without esophagitis; F17.210 Nicotine dependence, cigarettes, uncomplicated; Z66 Do not resuscitate; Z85.118 Personal history of other malignant neoplasm of bronchus and lung; Z79.899 Other long term (current) drug therapy; Z88.2 Allergy status to sulfonamides; Z95.5 Presence of coronary angioplasty implant and graft; Z92.3 Personal history of irradiation; Z92.21 Personal history of antineoplastic chemotherapy; Z88.0 Allergy status to penicillin; Z91.013 Allergy to seafood; Z91.041 Radiographic dye allergy status